=== PATIENT | male | born 1970 | race Caucasian/White ===

== ENCOUNTER 2021-07-18 21:24 | Observation (INO) | payer OTHER, SELFPAY ==
[2021-07-18 21:27] VITALS: BP 113/69; PULSE 73; RESP 15; TEMP 36.3; O2SAT 100; BMI 24.5
--- NOTE | 2021-07-18 21:39 | EKG12_ITS ---
Test Reason : SYNCOPY Blood Pressure : / mmHG Vent. Rate : 065 BPM Atrial Rate : 065 BPM P-R Int : 168 ms QRS Dur : 100 ms QT Int : 400 ms P-R-T Axes : 073 072 047 degrees QTc Int : 416 ms Normal sinus rhythm Normal ECG Confirmed by NATHANIEL DUNHAM, DAVON ([id number]), editor managing director LENNY ALVAREZ ([id number]) on 07/21/2021 11:29:04 AM Referred By: Confirmed By:DAVON ARMSTRONG MD
--- NOTE | 2021-07-18 21:39 | EX.ED.DYSGE1 ---
HPI <Dr. Lonny Strickland DO - Last Filed: 07/19/21 00:13> History of Present Illness Chief Complaint: Syncope Informant: patient Narrative Narrative: 50-year-old male presenting Emergency department chief complaint of syncope. Patient is in [place] and comes to visit on the weekends. He states that on Wednesday of this week he had an episode of dizziness which was character for him. On Wednesday he developed a rash body he saw Dr. Today was a prescription for prednisone which he has not started. Tonight he was at a concert at the [employer]. He stood up for about 4 to 5 minutes and began to get lightheaded so he sat back down for couple minutes. He thought that he could make it outside and had a syncopal episode. Bystanders describe it was. Pale. He denies any chest pain palpitations shortness of breath or sweating. He has no prior history of syncope. [facility] <Dr. Lonny Strickland DO - Last Filed: 07/19/21 00:13> [facility] Medical History Adult acne Home Medications doxycycline hyclate 100 mg PO BID 07/18/21 [History Last Taken Unknown] Allergy/AdvReac Type Severity Reaction Status Date / Time No Known Allergies Allergy Verified 07/18/21 21:29 Social History (Updated 07/18/21 @ 21:[address] Lonny Strickland DO) Smoking Status: Never smoker substance use type: does not use ROS <Dr. Lonny Strickland DO - Last Filed: 07/19/21 00:13> ROS ED Constitutional Constitutional ED: Denies chills, fever(s) or weight loss Eyes Eyes: Denies change in vision or diplopia ENT ENT ED: Denies ear pain, rhinorrhea or sore throat Cardiovascular Cardiovascular: Reports other Details: Syncope ; Denies chest pain, orthopnea, palpitations or racing heartbeat Respiratory/Chest Respiratory/Chest: Denies cough, dyspnea or orthopnea Gastrointestinal Gastrointestinal: Denies abdominal pain, diarrhea, nausea or vomiting Genitourinary Genitourinary ED: Denies dysuria, hematuria or urinary frequency Musculoskeletal Musculoskeletal: Denies arthralgias or myalgias Integumentary Denies abscess or rash Neurologic Neurologic: Denies headache(s) or weakness Psychiatric Psychiatric: Denies anxiety, depression, suicidal ideation or suicidal thoughts Endocrine Endocrinology: Denies polydipsia, polyphagia or polyuria Allergic/Immunologic Allergic/Immunologic ED: Denies mouth swelling, tongue swelling or urticaria EXAM <Dr. Lonny Strickland, DO - Last Filed: 07/19/21 00:13> Physical Exam Const Vital Signs: 07/18/21 21:27 07/18/21 21:31 07/19/21 00:52 Temperature 97.4 F L Temperature Source Temporal Pulse Rate 73 71 Respiratory Rate 15 Respiratory Effort Normal Non-Labored Respiratory Pattern Normal Blood Pressure 113/69 140/72 H Blood Pressure Mean 83 Pulse Ox 100 Oxygen Delivery Method Room Air 07/19/21 00:58 07/19/21 01:38 Temperature 97.9 F Temperature Source Oral Pulse Rate 53 L 69 Respiratory Rate 14 Respiratory Effort Respiratory Pattern Blood Pressure 81/53 L 110/63 Blood Pressure Mean 62 78 Pulse Ox 100 Oxygen Delivery Method Room Air Positive well nourished and well developed General Appearance ED: well developed HEENT Reports normocephalic, head/scalp atraumatic, TM's clear and moist mucous membranes Negative for trauma Tympanic Membrane ED: Yes TM's clear Eyes PERRL and EOMs intact bilaterally Neck no lymphadenopathy, supple and no JVD Resp normal respiratory effort and clear to auscultation bilaterally Cardio regular rate, regular rhythm and no murmurs GI normal to inspection, nondistended, normoactive bowel sounds and non-tender Palpation: soft Back/Spine no CVA tenderness and normal ROM Extremity normal to inspection General Extremety ED: Negative for edema General Extremity: Negative for edema Neuro oriented x3 and CN's II-XII intact bilaterally Sensorium / Orientation: alert Motor Exam: strength 5/5 throughout Psych mental status grossly normal Mood & Affect: Negative for depressed or tearful Skin no wounds Skin Narrative: hives noted on arms chest <Dr. Ronnie Dean, DO - Last Filed: 07/19/21 01:42> Physical Exam Const Vital Signs: 07/18/21 21:27 07/18/21 21:31 07/19/21 00:52 Temperature 97.4 F L Temperature Source Temporal Pulse Rate 73 71 Respiratory Rate 15 Respiratory Effort Normal Non-Labored Respiratory Pattern Normal Blood Pressure 113/69 140/72 H Blood Pressure Mean 83 Pulse Ox 100 Oxygen Delivery Method Room Air 07/19/21 00:58 07/19/21 01:38 Temperature 97.9 F Temperature Source Oral Pulse Rate 53 L 69 Respiratory Rate 14 Respiratory Effort Respiratory Pattern Blood Pressure 81/53 L 110/63 Blood Pressure Mean 62 78 Pulse Ox 100 Oxygen Delivery Method Room Air [facility] <Dr. Lonny Strickland, DO - Last Filed: 07/19/21 00:13> [facility] Narrative Medical decision making narrative: Patient's EKG is a normal sinus rhythm. Hemoglobin 15.1. BMP with potassium 3.4. Troponin high-sensitivity is less than 3. My interpretation of the chest x-ray is no acute process. D-dimer was obtained and is 2.33. Therefore a CTA of the chest was obtained. This was negative for pulmonary embolism. Delta troponin obtained and if negative the patient will be discharged home to arrange outpatient follow-up unless symptoms return in which case he should seek emergency care Lab Data Attestation: I reviewed the patient's lab results. Labs: Laboratory Results - last 24 hr 07/18/21 07/18/21 07/18/21 21:18 21:18 21:18 WBC 8.6 RBC 4.90 Hgb 15.1 Hct 44.8 MCV 91.4 MCH 30.8 MCHC 33.7 RDW Std Deviation 44.9 H RDW Coeff of Shanda 13.4 Plt Count 327 MPV 9.3 Immature Gran % (Auto) 0.200 Neut % (Auto) 60.1 Lymph % (Auto) 29.1 [place] % (Auto) 9.1 Eos % (Auto) 1.4 Baso % (Auto) 0.1 Absolute Neuts (auto) 5.2 Absolute Lymphs (auto) 2.49 Nucleated RBC % 0 D-Dimer Quant (PE/DVT) 2.33 H* Sodium 138 Potassium 3.4 L Chloride 104 Carbon Dioxide 31.0 Anion Gap 3 L BUN 14 Creatinine 0.88 Estim Creat Clear Calc 95.00 Est GFR (MDRD) Af Amer 117 Est GFR (MDRD) Non-Af 97 BUN/Creatinine Ratio 15.9 Glucose 124 H Calcium 8.8 Troponin I High Sens < 3 L 07/18/21 23:54 WBC RBC Hgb Hct MCV MCH MCHC RDW Std Deviation RDW Coeff of Shanda Plt Count MPV Immature Gran % (Auto) Neut % (Auto) Lymph % (Auto) [place] % (Auto) Eos % (Auto) Baso % (Auto) Absolute Neuts (auto) Absolute Lymphs (auto) Nucleated RBC % D-Dimer Quant (PE/DVT) Sodium Potassium Chloride Carbon Dioxide Anion Gap BUN Creatinine Estim Creat Clear Calc Est GFR (MDRD) Af Amer Est GFR (MDRD) Non-Af BUN/Creatinine Ratio Glucose Calcium Troponin I High Sens < 3 L Radiography Diagnostic Testing: Clinical Impression(s) from Imaging Studies Chest X-Ray 07/18/21 21:43 IMPRESSION: 1. No radiographic evidence of acute cardiopulmonary disease. Electronically Signed: Teddy Valdes DO at 22:33 EDT , Chest CTA 07/18/21 22:43 IMPRESSION: Normal CTA chest examination, without a demonstrated pulmonary embolism or arterial dissection. No evidence of acute cardiopulmonary disease. 2.1 cm, homogenous, fluid density segment 8 of the liver likely representing cyst. Electronically Signed: Teddy Valdes DO at 0:12 EDT , EKG Initial EKG: Attestation: I personally reviewed and interpreted this EKG as follows: Comments: Normal sinus rhythm ventricular rate of 65 bpm <Dr. Ronnie Dean, DO - Last Filed: 07/19/21 01:42> MDM MDM Narrative Medical decision making narrative: Patient signed out to me at midnight for follow up on delta troponin. Patient was individually examined and I took an individual history. His blood work is noted to be normal with exception of a D-dimer elevated at 2.33. His CTA of the chest was negative for PE or dissection. Ultimately his delta troponin was less than 3 as well. When the patient stood up to put on his shirt he became very lightheaded. His blood pressure dropped to 81/53 and the patient had another syncopal episode which would be 3 in the last several hours. I do not have a source for this but given his continued couple episodes I spoke to the hospitalist for admission. Patient was amenable to admission. Lab Data Attestation: I reviewed the patient's lab results. Labs: Laboratory Results - last 24 hr 07/18/21 07/18/21 07/18/21 21:18 21:18 21:18 WBC 8.6 RBC 4.90 Hgb 15.1 Hct 44.8 MCV 91.4 MCH 30.8 MCHC 33.7 RDW Std Deviation 44.9 H RDW Coeff of Shanda 13.4 Plt Count 327 MPV 9.3 Immature Gran % (Auto) 0.200 Neut % (Auto) 60.1 Lymph % (Auto) 29.1 [place] % (Auto) 9.1 Eos % (Auto) 1.4 Baso % (Auto) 0.1 Absolute Neuts (auto) 5.2 Absolute Lymphs (auto) 2.49 Nucleated RBC % 0 D-Dimer Quant (PE/DVT) 2.33 H* Sodium 138 Potassium 3.4 L Chloride 104 Carbon Dioxide 31.0 Anion Gap 3 L BUN 14 Creatinine 0.88 Estim Creat Clear Calc 95.00 Est GFR (MDRD) Af Amer 117 Est GFR (MDRD) Non-Af 97 BUN/Creatinine Ratio 15.9 Glucose 124 H Calcium 8.8 Troponin I High Sens < 3 L 07/18/21 23:54 WBC RBC Hgb Hct MCV MCH MCHC RDW Std Deviation RDW Coeff of Shanda Plt Count MPV Immature Gran % (Auto) Neut % (Auto) Lymph % (Auto) [place] % (Auto) Eos % (Auto) Baso % (Auto) Absolute Neuts (auto) Absolute Lymphs (auto) Nucleated RBC % D-Dimer Quant (PE/DVT) Sodium Potassium Chloride Carbon Dioxide Anion Gap BUN Creatinine Estim Creat Clear Calc Est GFR (MDRD) Af Amer Est GFR (MDRD) Non-Af BUN/Creatinine Ratio Glucose Calcium Troponin I High Sens < 3 L Radiography Diagnostic Testing: Clinical Impression(s) from Imaging Studies Chest X-Ray 07/18/21 21:43 IMPRESSION: 1. No radiographic evidence of acute cardiopulmonary disease. Electronically Signed: Teddy Valdes DO at 22:33 EDT , Chest CTA 07/18/21 22:43 IMPRESSION: Normal CTA chest examination, without a demonstrated pulmonary embolism or arterial dissection. No evidence of acute cardiopulmonary disease. 2.1 cm, homogenous, fluid density segment 8 of the liver likely representing cyst. Electronically Signed: Teddy Valdes DO at 0:12 EDT , Discharge Plan Triage Chief Complaint: Syncope ED Provider: Lonny Strickland Dx/Rx/DC Orders Clinical Impression: Syncope Instructions: ED Fainting, Uncertain Cause Prescriptions: No Action doxycycline hyclate 100 mg Capsule 100 mg PO BID RF: 0 Activity Restrictions/Additional Instructions: Please follow-up with your primary care provider when you return home next week
--- NOTE | 2021-07-18 21:43 | RAD_ITS ---
INDICATION: syncope EXAMINATION/TECHNIQUE: X-RAY - XR Chest 1 View COMPARISON: None. FINDINGS: LINES/DEVICES: None. LUNGS: Symmetric normal lung volumes. No airspace opacity or abnormal interstitial pattern. No nodule or mass. No pleural effusion or pneumothorax. MEDIASTINUM AND CARDIOVASCULAR STRUCTURES: Normal size and contour of the cardiomediastinal silhouette. No evidence of pulmonary vascular congestion. BONES AND SOFT TISSUES: No abnormality within limits of the exam. RAD/Chest 1 View (Portable) IMPRESSION: 1. No radiographic evidence of acute cardiopulmonary disease. Electronically Signed: Teddy Valdes DO at 22:33 EDT ,
[2021-07-18 21:53] LABS: Absolute Lymphocyte Count 2.49 X10^3/uL (0.83-4.51); Absolute Neutrophil Count 5.2 X10^3/uL (2.0-7.7); Basophil# 0.01 X10^3/uL; Basophil% 0.1 % (0-1); Eosinophil# 0.12 X10^3/uL; Eosinophils% 1.4 % (0-5); Hematocrit 44.8 % (40-54); Hemoglobin 15.1 g/dL (13.0-16.5); Lymphocyte # 2.49 X10^3/ul (0.83-4.51); Lymphocyte % 29.1 % (19-41); Mean Corp Hgb Conc 33.7 g/dL (32-36); Mean Corpuscular Hgb 30.8 pg (27.0-32.0); Mean Corpuscular Volume 91.4 fL (80-94); Mean Platelet Vol. 9.3 fl (6.2-12.0); Monocyte# 0.78 X10^3/uL; Monocyte% 9.1 % (0-10); NRBC Flagged by Analyzer 0 % (0-5); Neutrophil # 5.15 X10^3/uL (2.7-7.7); Neutrophil % 60.1 % (47-70); Platelet Count 327 K/mm3 (150-450); RBC Distribution Width CV 13.4 % (11.6-14.6); RBC Distribution Width SD 44.9 fl (35.1-43.9); White Blood Count 8.6 K/mm3 (4.4-11.0)
[2021-07-18 22:15] LABS: Anion Gap 3 (5-15); BUN 14 mg/dL (7-18); BUN/Creat Ratio 15.9 RATIO (10-20); Calcium,Total 8.8 mg/dL (8.5-10.1); Chloride 104 mmol/L (98-107); Creatinine, Serum 0.88 mg/dL (0.70-1.30); EST Glomerular Filtration Rate 97 mL/min (>60); Est Glom Filt Rate - Afr Amer 117 mL/min (>60); Glucose 124 mg/dL (74-106); Potassium 3.4 mmol/L (3.5-5.1); Sodium Level 138 mmol/L (136-145); Troponin-I HS < 3 pg/mL (3.0-78.0)
[2021-07-18 22:43] LABS: D-Dimer Quantitative (DVT/PE) 2.33 FEU/ug/m (0.27-0.49)
--- NOTE | 2021-07-18 22:43 | CT_ITS ---
STUDY: CTA CHEST REASON FOR EXAM: Male, 50 years old. pulmonary embolism, elevated d dimer RADIATION DOSAGE (If Supplied By Facility): CTDIvol = ( 9.87 ) mGy, DLP = ( 351.99 ) mGycm TECHNIQUE: The examination was performed with the intravenous administration of IV 100mL Isovue-370. Post-processing of the angiographic images was performed, with multiplanar reformation and 3D reconstruction. Individualized dose optimization techniques were used for this CT. COMPARISON: Chest x-ray from the same evening. FINDINGS: Adequate density of contrast in the pulmonary arteries and no significant motion; diagnostic exam. No pulmonary artery filling defect to suggest pulmonary embolism. There is no evidence of right heart strain. Normal size heart. No pericardial fluid. No mediastinal or hilar lymphadenopathy. No mass or filling defect. No bronchiectasis. No peribronchial thickening. Normal lung volumes without airtrapping. No airspace opacity or abnormal interstitial pattern. No nodule or mass. No pleural effusion or pneumothorax. Thyroid gland and base of the neck are within normal limits. No axillary lymphadenopathy. No fracture or suspicious osseous lesion. 5 mm sclerotic focus T7 vertebral body noted. 2.1 cm fluid density segment 8 of the liver likely representing cyst. Small organs upper abdomen, included in [id number], are otherwise within normal limits. Visualized vascular structures are within normal limits. CT/CTA Chest W/WO Contrast IMPRESSION: Normal CTA chest examination, without a demonstrated pulmonary embolism or arterial dissection. No evidence of acute cardiopulmonary disease. 2.1 cm, homogenous, fluid density segment 8 of the liver likely representing cyst. Electronically Signed: Teddy Valdes DO at 0:12 EDT ,
[2021-07-18] MEDS: DiphenhydrAMINE 25 MG Capsule 50 MG PO (23:59)
[2021-07-19] VITALS (12 sets, daily range): BP systolic 81–140; BP diastolic 52–72; PULSE 53–83; RESP 14–18; TEMP 36.4–37.1; O2SAT 98–100; BMI 23.4
[2021-07-19 00:37] LABS: Troponin-I HS < 3 pg/mL (3.0-78.0)
--- NOTE | 2021-07-19 01:02 | ED.RN ---
PT D/C'D. PER PT FRIEND PT STATED HE WENT TO STAND UP AND STATED HE FELT FUNNY. PER FRIEND SHE SAT HIM DOWN AND CALLED FOR HELP. ASPHALT TAMPER INTO ROOM AND NOTED EYES ROLLED BACK INTO HEAD AND UNRESPONSIVE FOR A COUPLE OF SECONDS. THIS NURSE INTO ROOM PROMPTLY AND PT AWAKE BUT SLOW TO RESPOND. ASSISTED BACK INTO BED. HR 50 BP 81/53. PT A&OX4. STAT EKG CALLED AND DR. DOSHI NOTIFIED.
--- NOTE | 2021-07-19 01:10 | NURSING ---
ALERTED BY FRIEND PT FELT DIZZY AGAIN. WALKED INTO ROOM AND SAW PT PALE, WITH EYES ROLLED BACK INTO HEAD. ALERTED RIZWAN PENDLETON FOR HELP. PT PUT BACK INTO BED, VITALS TAKEN AND NOTED BY RIZWAN PENDLETON.
[2021-07-19] MEDS: 0.9% Normal Saline 1,000 ML 999 ML IV (01:14)
--- NOTE | 2021-07-19 01:23 | EKG12_ITS ---
Test Reason : SYNCOPY Blood Pressure : / mmHG Vent. Rate : 060 BPM Atrial Rate : 060 BPM P-R Int : 170 ms QRS Dur : 094 ms QT Int : 398 ms P-R-T Axes : 076 077 057 degrees QTc Int : 398 ms Normal sinus rhythm Normal ECG Confirmed by NATHANIEL DUNHAM, DAVON ([id number]), graphic editor LENNY ALVAREZ ([id number]) on 07/21/2021 11:30:29 AM Referred By: EDUAR Confirmed By:DAVON ARMSTRONG MD
--- NOTE | 2021-07-19 01:42 | PCM.HP.STD ---
[facility] - General General Date of Admission: 07/19/21 HPI Narrative WILMER ROBLES, is a 50 M with a significant history of adult acne on doxycycline who presents to the emergency department with 2 episodes of syncope. Three days before presentation patient felt lightheadedness while sitting. Two days before presentation patient developed a diffuse rash on his body. Of note patient was prescribed steroid but he has not started taking the steroids. Reportedly he used a new detergents which is however in the same class of previous detergents that he had to use. Patient traveled from [place] to watch his consents and toward the end of the consent patient felt lightheaded and had a syncopal episode. Reportedly he hit his head. He reports a headache. He report that with his syncopal episodes he always felt warm and mildly nauseous. At the emergency department D-dimer was elevated. Follow-up CTA did not show any clots. Troponin x2 was unremarkable. Patient's was about to be discharged. He stood up got lightheaded and had another syncopal episode. His blood pressure after syncopal episode was 81/53. He received IV bolus there after and repeat blood pressure was normal. Before this episode of syncope last time he had syncope was about 20 years ago. [facility] Medical History Adult acne Home Medications doxycycline hyclate 100 mg PO BID 07/18/21 [History Last Taken Unknown] Allergy/AdvReac Type Severity Reaction Status Date / Time No Known Allergies Allergy Verified 07/18/21 21:29 Family History (Updated 07/19/21 @ 02:[address] Tae Carroll MD) Other Cancer Heart disease Surgical History no surgical history no surgical history Social History Smoking Status: Never smoker substance use type: does not use Vital Signs Vital Signs Vital Signs: 07/18/21 21:27 07/18/21 21:31 07/19/21 00:52 Temperature 97.4 F L Temperature Source Temporal Pulse Rate 73 71 Respiratory Rate 15 Respiratory Effort Normal Non-Labored Respiratory Pattern Normal Blood Pressure 113/69 140/72 H Blood Pressure Mean 83 Pulse Ox 100 Oxygen Delivery Method Room Air 07/19/21 00:58 07/19/21 01:38 Temperature 97.9 F Temperature Source Oral Pulse Rate 53 L 69 Respiratory Rate 14 Respiratory Effort Respiratory Pattern Blood Pressure 81/53 L 110/63 Blood Pressure Mean 62 78 Pulse Ox 100 Oxygen Delivery Method Room Air Weight Weight: 73 kg Body Mass Index (BMI) 24.5 Physical Exam Narrative Physical exam: General: Well-nourished, well-developed. Head: Normocephalic, atraumatic, no tenderness Eyes: Vision is grossly intact. EOMI ENT, no trauma, moist mucous membranes, no rhinorrhea Neck: Nontender, full range of motion, no spinal tenderness, deformities, step-off CVS: Regular rate and rhythm. S1-S2 present. No murmur, gallop or rub. Respiratory : clear to auscultation bilaterally, chest wall nontender, no wheezing Abdomen: Soft, nontender, nondistended, normal bowel sounds, no masses : Deferred Back: Nontender, no CVA tenderness, no midline spinal tenderness, deformities, step-offs Extremities: Nontender full range of motion, no trauma Skin: Scattered hives. Neuro: Alert, oriented, cranial nerves II through XII grossly intact. Psychiatry: Normal mood. Normal affect. Not depressed. Not anxious. Results Lab / Micro Data Result Diagrams: 07/18/21 21:18 07/18/21 21:18 Labs: Laboratory Results - last 24 hr 07/18/21 21:18: WBC 8.6, RBC 4.90, Hgb 15.1, Hct 44.8, MCV 91.4, MCH 30.8, MCHC 33.7, RDW Std Deviation 44.9 H, RDW Coeff of Shanda 13.4, Plt Count 327, MPV 9.3, Immature Gran % (Auto) 0.200, Neut % (Auto) 60.1, Lymph % (Auto) 29.1, [place] % (Auto) 9.1, Eos % (Auto) 1.4, Baso % (Auto) 0.1, Absolute Neuts (auto) 5.2, Absolute Lymphs (auto) 2.49, Nucleated RBC % 0 07/18/21 21:18: D-Dimer Quant (PE/DVT) 2.33 H* 07/18/21 21:18: Sodium 138, Potassium 3.4 L, Chloride 104, Carbon Dioxide 31.0, Anion Gap 3 L, BUN 14, Creatinine 0.88, Estim Creat Clear Calc 95.00, Est GFR (MDRD) Af Amer 117, Est GFR (MDRD) Non-Af 97, BUN/Creatinine Ratio 15.9, Glucose 124 H, Calcium 8.8, Troponin I High Sens < 3 L 07/18/21 23:54: Troponin I High Sens < 3 L Radiology Impression Chest X-Ray 07/18/21 21:43 IMPRESSION: 1. No radiographic evidence of acute cardiopulmonary disease. Electronically Signed: Teddy Valdes DO at 22:33 EDT , Chest CTA 07/18/21 22:43 IMPRESSION: Normal CTA chest examination, without a demonstrated pulmonary embolism or arterial dissection. No evidence of acute cardiopulmonary disease. 2.1 cm, homogenous, fluid density segment 8 of the liver likely representing cyst. Electronically Signed: Teddy Valdes DO at 0:12 EDT , Assessment & Plan Assessment/Plan (1) Syncope and collapse: (2) Contact dermatitis: QUALIFIERS: Contact dermatitis type: allergic Contact dermatitis trigger: other chemical product Qualified Code(s): L23.5 - Allergic contact dermatitis due to other chemical products PLAN: Syncope and collapse Vasovagal versus orthostatic. EKG independently reviewed showed sinus rhythm with no ST or T abnormalities. Impression of chest x-ray by radiologist: No radiographic evidence of acute cardiopulmonary disease. Actual chest x-ray image was independently reviewed. I agree with radiologist interpretation. Review of labs showed elevated D-dimer. Chest CTA was visualized and independently interpreted. At radiologist interpretation of no active evidence of acute cardiopulmonary process but with 2.1 cm homogeneous fluid density segment likely representing a cyst that patient can follow-up longitudinally. Echocardiogram ordered. High sensitivity troponin x2 was negative. Trend troponin. Orthostatic vitals per protocol Received normal saline bolus at emergency department. Gentle IV hydration ordered. Tylenol as needed for headache. If headache worsens or patient develops focal neurological symptoms will consider CT head. Hypokalemia Potassium 3.4. Replacement ordered. Magnesium level ordered return as 1.9. 2 g of magnesium IV ordered. Trend BMP. DVT prophylaxis Subcutaneous Lovenox ordered. Charges/Coding Visit Charges Inpatient E&M: 83184 Init Hosp L3 OBSV E&M: 00099 Initial observation care L3
[2021-07-19 01:54] LABS: Magnesium 1.9 mg/dL (1.6-2.6)
--- NOTE | 2021-07-19 02:19 | ECHOD_ITS ---
Reason For Study: Syncope, Near Syncope Procedure This was a 2D Doppler, Color Flow transthoracic echocardiogram. The exam was of adequate technical quality. Exam performed portable in patient room. Left Ventricle Normal LV size. Left ventricular systolic function is normal. The estimated ejection fraction is 65 %. No evidence for diastolic dysfunction. No regional wall motion abnormalities noted. Right Ventricle Normal RV size. Normal systolic function. Atria Normal left atrium. Normal right atrium. Late and faintly positive agitated saline contrast study for right to left interatrial shunt compatible with a small PFO versus ASD. Mitral Valve There is no mitral annular calcification. Mild focal mitral valve calcification of the anterior leaflet. Trivial mitral valve insufficiency. Tricuspid Valve Normal tricuspid valve. Trivial tricuspid valve insufficiency. Unable to estimate RV systolic pressure due to insufficient tricuspid regurgitant envelope. Aortic Valve Trisinus/trileaflet aortic valve. Mild diffuse aortic valve thickening. Trivial aortic valve insufficiency. Pulmonic Valve The pulmonic valve is not well visualized. Great Vessels Normal sized aortic root. Pericardium/Pleural No pericardial effusion. Medication Performed a rapid injection of agitated mix of 9 cc saline and 1cc air to assess for atrial septal defect. MMode/2D Measurements & Calculations LVIDd: 4.4 cm IVSd: 0.92 cm Ao root diam: 2.9 cm LVIDs: 2.9 cm LVPWd: 1.00 cm RVDd: 3.3 cm FS: 33.5 % LAV(MOD-bp): 32.5 ml LVAd ap4: 26.6 cm2 SV(MOD-sp4): 41.3 ml LAV(MOD-bp) Indexed: 17.5 ml/m2 LVLd ap4: 8.3 cm LAV(MOD-sp2): 28.7 ml EDV(MOD-sp4): 70.8 ml LAV(MOD-sp4): 30.5 ml EDV(sp4-el): 72.8 ml LVAs ap4: 15.4 cm2 LVLs ap4: 7.0 cm ESV(MOD-sp4): 29.5 ml ESV(sp4-el): 28.7 ml EF(MOD-sp4): 58.4 % EF(sp4-el): 60.6 % SV(sp4-el): 44.1 ml LA A4 area: 13.9 cm2 LA dimension(2D): 3.0 cm RA A4 area: 14.1 cm2 Doppler Measurements & Calculations MV E max robbie: 77.8 cm/sec Lat Peak E' Robbie: 12.8 cm/sec Med Peak E' Robbie: 7.7 cm/sec MV A max robbie: 60.4 cm/sec E/E' lat: 6.1 E/E' med: 10.1 MV E/A: 1.3 Ao V2 max: 114.3 cm/sec LV V1 max: 86.8 cm/sec PA V2 max: 87.6 cm/sec Ao max P.2 mmHg LV V1 max P.0 mmHg Ao V2 mean: 85.0 cm/sec Ao mean P.1 mmHg Ao V2 VTI: 24.8 cm ECHO/Echo Complete Interpretation Summary Left ventricular systolic function is normal. The estimated ejection fraction is 65 %. Mild focal mitral valve calcification of the anterior leaflet. Trivial mitral valve insufficiency. Trivial tricuspid valve insufficiency. Mild diffuse aortic valve thickening. Trivial aortic valve insufficiency. Unable to estimate RV systolic pressure due to insufficient tricuspid regurgita nt envelope. No evidence for diastolic dysfunction. Late and faintly positive agitated saline contrast study for right to left inte ratrial shunt compatible with a small PFO versus ASD. Ordering Physician: Tae Carroll Performed By: Sigrid Packer, KRISHAN, RVT
[2021-07-19] MEDS: 0.9% Normal Saline 1,000 ML 100 ML IV ×2 (03:15→13:40)
[2021-07-19] MEDS: Potassium Chloride Oral Tablet 20 MEQ 60 MEQ PO (03:30)
[2021-07-19 03:51] LABS: Absolute Lymphocyte Count 0.91 X10^3/uL (0.83-4.51); Absolute Neutrophil Count 10.6 X10^3/uL (2.0-7.7); Basophil# 0.01 X10^3/uL; Basophil% 0.1 % (0-1); Eosinophil# 0.04 X10^3/uL; Eosinophils% 0.3 % (0-5); Hematocrit 45.4 % (40-54); Hemoglobin 15.2 g/dL (13.0-16.5); Lymphocyte # 0.91 X10^3/ul (0.83-4.51); Lymphocyte % 7.3 % (19-41); Mean Corp Hgb Conc 33.5 g/dL (32-36); Mean Corpuscular Hgb 30.8 pg (27.0-32.0); Mean Corpuscular Volume 91.9 fL (80-94); Mean Platelet Vol. 9.2 fl (6.2-12.0); Monocyte# 0.83 X10^3/uL; Monocyte% 6.7 % (0-10); NRBC Flagged by Analyzer 0 % (0-5); Neutrophil # 10.63 X10^3/uL (2.7-7.7); Neutrophil % 85.3 % (47-70); Platelet Count 324 K/mm3 (150-450); RBC Distribution Width CV 13.5 % (11.6-14.6); Red Blood Count 4.94 M/mm3 (4.6-6.2); White Blood Count 12.5 K/mm3 (4.4-11.0)
[2021-07-19 04:29] LABS: Anion Gap 4 (5-15); BUN 11 mg/dL (7-18); BUN/Creat Ratio 12.6 RATIO (10-20); Calcium,Total 8.2 mg/dL (8.5-10.1); Chloride 105 mmol/L (98-107); Creatinine, Serum 0.87 mg/dL (0.70-1.30); EST Glomerular Filtration Rate 97 mL/min (>60); Est Glom Filt Rate - Afr Amer 118 mL/min (>60); Estimated Creatinine Clearance 96.09 ml/min; Glucose 136 mg/dL (74-106); Potassium 4.1 mmol/L (3.5-5.1); Sodium Level 137 mmol/L (136-145)
[2021-07-19 04:31] LABS: Troponin-I HS < 3 pg/mL (3.0-78.0)
--- NOTE | 2021-07-19 09:25 | PN.HOSP_ITS ---
Subjective Subjective Rash recurring this AM. Progresses from his hands, legs to neck and head. Denies any new medications. Has been on doxycycline for months and psuedophed for longer. No recent travel beyond between [place] and [place]. Denies illicit drug use. No known food allergies. Did have shellfish earlier this week, but not since. Objective Data Objective Data Vital Signs: Vital Signs Temp Pulse Resp BP Pulse Ox 36.5 C L 70 16 98/58 L 99 07/19/21 08:40 07/19/21 08:40 07/19/21 08:40 07/19/21 08:40 07/19/21 08:40 Oxygen Delivery Method Room Air Weight: 70 kg Body Mass Index (BMI) 23.4 Intake & Output: Intake and Output for Last 24 Hours 07/17/21 07/18/21 07/19/21 23:59 23:59 23:59 Intake Total 1204 / 1204 Balance 1204 / 1204 Lab / Micro Data Result Diagrams: 07/19/21 03:45 07/19/21 03:45 Labs: Laboratory Results - last 24 hr 07/18/21 21:18: WBC 8.6, RBC 4.90, Hgb 15.1, Hct 44.8, MCV 91.4, MCH 30.8, MCHC 33.7, RDW Std Deviation 44.9 H, RDW Coeff of Shanda 13.4, Plt Count 327, MPV 9.3, Immature Gran % (Auto) 0.200, Neut % (Auto) 60.1, Lymph % (Auto) 29.1, Harnett % (Auto) 9.1, Eos % (Auto) 1.4, Baso % (Auto) 0.1, Absolute Neuts (auto) 5.2, Absolute Lymphs (auto) 2.49, Nucleated RBC % 0 07/18/21 21:18: D-Dimer Quant (PE/DVT) 2.33 H* 07/18/21 21:18: Sodium 138, Potassium 3.4 L, Chloride 104, Carbon Dioxide 31.0, Anion Gap 3 L, BUN 14, Creatinine 0.88, Estim Creat Clear Calc 95.00, Est GFR (MDRD) Af Amer 117, Est GFR (MDRD) Non-Af 97, BUN/Creatinine Ratio 15.9, Glucose 124 H, Calcium 8.8, Troponin I High Sens < 3 L 07/18/21 23:54: Troponin I High Sens < 3 L 07/19/21 01:45: Magnesium 1.9 07/19/21 03:45: WBC 12.5 H, RBC 4.94, Hgb 15.2, Hct 45.4, MCV 91.9, MCH 30.8, MCHC 33.5, RDW Std Deviation 46.0 H, RDW Coeff of Shanda 13.5, Plt Count 324, MPV 9.2, Immature Gran % (Auto) 0.300, Neut % (Auto) 85.3 H, Lymph % (Auto) 7.3 L, Harnett % (Auto) 6.7, Eos % (Auto) 0.3, Baso % (Auto) 0.1, Absolute Neuts (auto) 10.6 H, Absolute Lymphs (auto) 0.91, Nucleated RBC % 0 07/19/21 03:45: Sodium 137, Potassium 4.1, Chloride 105, Carbon Dioxide 28.0, Anion Gap 4 L, BUN 11, Creatinine 0.87, Estim Creat Clear Calc 96.09, Est GFR (MDRD) Af Amer 118, Est GFR (MDRD) Non-Af 97, BUN/Creatinine Ratio 12.6, Glucose 136 H, Calcium 8.2 L 07/19/21 03:45: Troponin I High Sens < 3 L Radiography Diagnostic Testing: Radiology Impression Chest X-Ray 07/18/21 21:43 IMPRESSION: 1. No radiographic evidence of acute cardiopulmonary disease. Electronically Signed: Teddy Valdes DO at 22:33 EDT , Chest CTA 07/18/21 22:43 IMPRESSION: Normal CTA chest examination, without a demonstrated pulmonary embolism or arterial dissection. No evidence of acute cardiopulmonary disease. 2.1 cm, homogenous, fluid density segment 8 of the liver likely representing cyst. Electronically Signed: Teddy Valdes DO at 0:12 EDT , Physical Exam Const alert and no apparent distress HEENT HEENT Narrative: no oral lesions. Cardio regular rate, regular rhythm, S1 normal heart sound and S2 normal heart sound GI normal to inspection, nondistended, normoactive bowel sounds, soft to palpation, non-tender and non-distended Extremity normal to inspection Skin Skin Narrative: macular palpular rash involving hands, legs, chest, abdomen, scalp. Neuro oriented x3 Sensorium / Orientation: awake and alert Assessment & Plan Assessment/Plan (1) Syncope and collapse: (2) Drug rash: PLAN: 1. Suspected drug rash * more likely due to doxycycline, which he has been taking for months (previously on minocycline), less likely pseudophed, but will hold both * other possibilities could be viral exanthem or food allergy * No clinical evidence of SJS, TEN * Given extent, less likely contact dermatitis * plan * hold doxy and pseudophed * check viral resp panel. Pt had tested himself for COVID this week and were both negative * prednisone 2. Syncope * at baseline, pt would occasionally get dizzy upon standing. this may have been eccentuated by #1 * recheck orthostatic vitals. 3. Adult acne * no doxycycline * follow up with dermatology Will monitor. Anticipate DC when rash and symptoms improve. DW pt's at bedside. Charges/Coding Visit Charges OBSV E&M: 11699 Subsequent observation care L3
[2021-07-19] MEDS: predniSONE 20 MG Tablet 60 MG PO (10:30)
[2021-07-19] MEDS: DiphenhydrAMINE 25 MG Capsule 50 MG PO ×2 (10:31→23:36)
[2021-07-19] MEDS: Famotidine 20 MG Tablet PO ×2 (10:31→22:01)
--- NOTE | 2021-07-19 22:08 | NURSING ---
Patient with hand swelling and cough. NS running at 100ml. Bel notified and fluids held. vitals WNL
[2021-07-20] VITALS (7 sets, daily range): BP systolic 107–124; BP diastolic 61–67; PULSE 82–107; RESP 18; TEMP 36.8–37.1; O2SAT 97–100
[2021-07-20] MEDS: guaiFENesin 10 ML UDC (200MG/10ML) PO (00:33)
[2021-07-20] MEDS: Acetaminophen 325 MG Tablet 650 MG PO (04:45)
[2021-07-20 07:22] LABS: Anion Gap 4 (5-15); BUN 13 mg/dL (7-18); BUN/Creat Ratio 16.5 RATIO (10-20); Chloride 110 mmol/L (98-107); Creatinine, Serum 0.79 mg/dL (0.70-1.30); EST Glomerular Filtration Rate 110 mL/min (>60); Est Glom Filt Rate - Afr Amer 133 mL/min (>60); Estimated Creatinine Clearance 105.82 ml/min; Glucose 117 mg/dL (74-106); Potassium 3.5 mmol/L (3.5-5.1); Sodium Level 139 mmol/L (136-145)
[2021-07-20] MEDS: predniSONE 20 MG Tablet 40 MG PO (09:02)
[2021-07-20] MEDS: DiphenhydrAMINE 25 MG Capsule 50 MG PO (09:03)
[2021-07-20] MEDS: Famotidine 20 MG Tablet PO (09:03)
--- NOTE | 2021-07-20 09:20 | PN.HOSP_ITS ---
Subjective Subjective Rash better. Objective Data Objective Data Vital Signs: Vital Signs Temp Pulse Resp BP Pulse Ox 36.8 C 91 18 107/66 97 07/20/21 08:55 07/20/21 08:55 07/20/21 08:55 07/20/21 08:55 07/20/21 08:55 Oxygen Delivery Method Room Air Weight: 70 kg Body Mass Index (BMI) 23.4 Intake & Output: Intake and Output for Last 24 Hours 07/18/21 07/19/21 07/20/21 23:59 23:59 23:59 Intake Total 4099 / 4099 Balance 4099 / 4099 Lab / Micro Data Result Diagrams: 07/19/21 03:45 07/20/21 05:56 Labs: Laboratory Results - last 24 hr 07/20/21 05:56: Sodium 139, Potassium 3.5, Chloride 110 H, Carbon Dioxide 25.0, Anion Gap 4 L, BUN 13, Creatinine 0.79, Estim Creat Clear Calc 105.82, Est GFR (MDRD) Af Amer 133, Est GFR (MDRD) Non-Af 110, BUN/Creatinine Ratio 16.5, Glucose 117 H, Calcium 8.0 L Micro: Microbiology 07/19/21 11:16 Mucosa - Nasopharyngeal Respiratory Panel (PCR) - Final Radiography Diagnostic Testing: Radiology Impression Echocardiogram 07/19/21 02:19 Interpretation Summary Left ventricular systolic function is normal. The estimated ejection fraction is 65 %. Mild focal mitral valve calcification of the anterior leaflet. Trivial mitral valve insufficiency. Trivial tricuspid valve insufficiency. Mild diffuse aortic valve thickening. Trivial aortic valve insufficiency. Unable to estimate RV systolic pressure due to insufficient tricuspid regurgitant envelope. No evidence for diastolic dysfunction. Late and faintly positive agitated saline contrast study for right to left interatrial shunt compatible with a small PFO versus ASD. Ordering Physician: Tae Carroll Performed By: Sigrid Packer, RDCS, RVT Physical Exam Const alert and no apparent distress Extremity normal to inspection and full ROM Skin Skin Narrative: decreased rash on hands and legs Neuro Sensorium / Orientation: awake and alert Assessment & Plan Assessment/Plan (1) Syncope and collapse: (2) Drug rash: PLAN: 1. Suspected drug rash * more likely due to doxycycline, which he has been taking for months (previously on minocycline), less likely pseudophed, but will hold both * other possibilities could be viral exanthem or food allergy * No clinical evidence of SJS, TEN * Given extent, less likely contact dermatitis * plan * hold doxy and Sudafed * check viral resp panel. Pt had tested himself for COVID this week and were both negative * prednisone 2. Syncope * at baseline, pt would occasionally get dizzy upon standing. this may have been accentuated by #1 * orthostatic vitals negative 3. Adult acne * no doxycycline * follow up with dermatology 4. PFO v ASD * incidental finding * DW Dr. Laws, no need for cardiology follow up unless direct causation. 5. Dizziness * Chronic. Patient has lower blood pressures at baseline and I feel that the single episodes it was was partially attributable to allergic reaction but may have been vasovagal component as well. At baseline patient does feel dizzy upon standing. Patient has been put on Sudafed for this. Explained to the patient that I do not feel that he has an inner ear vertigo but may be more component of orthostasis. Would prescribe the patient some meclizine but also did advise he and his that if he is having positional vertigo to consider doing Luisa maneuvers and to look those up online. But once again I told him I do not necessarily feel that he is having benign paroxysmal positional vertigo. MATT pt's at bedside.
--- NOTE | 2021-07-20 10:15 | PCM.DC ---
Discharge Instructions Diet Discharge Diet: No restrictions Activity Discharge Activity: Return to Normal Activity Dressing / Incision Call your doctor if you observe: Dizziness Follow Up Care Please Follow Up With: Your order manager When: 1-2 months Test Results: Test results from this visit will be discussed in further detail at your follow-up appointment, if applicable. Discharge Plan Admission Admit Date/Time: 07/19/21 01:35 Primary Reason for Your Visit: suspected drug rash Attending Provider: Tirso Gaytan Instructions Patient Instructions: ED Fainting, Uncertain Cause Additional Instructions / Restrictions: Please follow-up with your primary care provider when you return home next week Discharge Orders/Prescriptions Prescriptions: New prednisone 20 mg Tablet 40 mg PO BREAKFAST Qty: 0 RF: 0 famotidine 20 mg Tablet 20 mg PO BID Qty: 0 RF: 0 diphenhydramine HCl [Banophen] 25 mg Capsule 50 mg PO TID PRN PRN (Reason: RASH/TOPICAL IRRITATION) Qty: 0 RF: 0 meclizine 25 mg tablet 25 mg PO TID PRN (Reason: dizziness) Qty: 20 RF: 0 Discontinued doxycycline hyclate 100 mg Capsule 100 mg PO BID RF: 0 Sudafed PE 10 mg RF: 0 Referrals / Follow Up: DIMA RAHMAN [Other] - Within 2 Weeks Disposition Disposition (needs filled in before D/C Order can be placed): Home, Self Care
--- NOTE | 2021-07-20 10:20 | DS.PCM_ITS ---
Providers Date of Admission: 07/19/21 Primary Care Physician: DIMA RAHMAN Reason For Visit: SYNCOPE Diagnosis Discharge Diagnosis (1) Syncope and collapse: Status: Acute Code(s): R55 - Syncope and collapse (2) Drug rash: Status: Acute Code(s): L27.0 - Generalized skin eruption due to drugs and medicaments taken internally Medications at Discharge Home Medications diphenhydramine HCl [Banophen] 50 mg PO TID PRN PRN #0 cap 07/20/21 famotidine 20 mg PO BID #0 tab 07/20/21 meclizine 25 mg PO TID PRN #20 tab 07/20/21 prednisone 40 mg PO BREAKFAST #0 tab 07/20/21 Hospital Course Operations None Procedures 2-D Echocardiogram Summary of Care Provided Minutes Spent on Discharge: 32 Hospital Course: 1. Suspected drug rash * improved more likely due to doxycycline, which he has been taking for months (previously on minocycline), less likely Sudafed, but will hold both * other possibilities could be viral exanthem or food allergy * No clinical evidence of SJS, TEN * Given extent, less likely contact dermatitis * plan * hold doxy and Sudafed * prednisone and famotidine for 4 more days 2. Syncope * at baseline, pt would occasionally get dizzy upon standing. this may have been accentuated by #1 * orthostatic vitals negative 3. Adult acne * no doxycycline * follow up with dermatology about other options other than doxycycline/tetracycline 4. PFO v ASD * incidental finding * DW Dr. Laws, no need for cardiology follow up unless direct causation, which this is not 5. Dizziness * Chronic. Patient has lower blood pressures at baseline and I feel that the single episodes it was was partially attributable to allergic reaction but may have been vasovagal component as well. At baseline patient does feel dizzy upon standing. Patient has been put on Sudafed for this. Explained to the patient that I do not feel that he has an inner ear vertigo but may be more component of orthostasis. Would prescribe the patient some meclizine but also did advise he and his that if he is having positional vertigo to consider doing Luisa maneuvers and to look those up online. But once again I told him I do not necessarily feel that he is having benign paroxysmal positional vertigo. Weight / BMI Weight Weight: 70 kg Body Mass Index (BMI) 23.4 ABG / Lab / Microbiology Data Result Diagrams: 07/19/21 03:45 07/20/21 05:56 Laboratory: Laboratory Results - last 24 hr 07/20/21 05:56: Sodium 139, Potassium 3.5, Chloride 110 H, Carbon Dioxide 25.0, Anion Gap 4 L, BUN 13, Creatinine 0.79, Estim Creat Clear Calc 105.82, Est GFR (MDRD) Af Amer 133, Est GFR (MDRD) Non-Af 110, BUN/Creatinine Ratio 16.5, Glu cose 117 H, Calcium 8.0 L Microbiology: Microbiology 07/19/21 11:16 Mucosa - Nasopharyngeal Respiratory Panel (PCR) - Final Radiography Diagnostic Testing: Radiology Impression Echocardiogram 07/19/21 02:19 Interpretation Summary Left ventricular systolic function is normal. The estimated ejection fraction is 65 %. Mild focal mitral valve calcification of the anterior leaflet. Trivial mitral valve insufficiency. Trivial tricuspid valve insufficiency. Mild diffuse aortic valve thickening. Trivial aortic valve insufficiency. Unable to estimate RV systolic pressure due to insufficient tricuspid regurgitant envelope. No evidence for diastolic dysfunction. Late and faintly positive agitated saline contrast study for right to left interatrial shunt compatible with a small PFO versus ASD. 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 When: 1-2 months Meaningful Use Info Meaningful Use Diagnoses (Choose all that apply): None applicable Discharge Plan Admission Admit Date/Time: 07/19/21 01:35 Primary Reason for Your Visit: suspected drug rash Attending Provider: Tirso Gaytan Instructions Patient Instructions: ED Fainting, Uncertain Cause Additional Instructions / Restrictions: Please follow-up with your primary care provider when you return home next week Discharge Orders/Prescriptions Prescriptions: New prednisone 20 mg Tablet 40 mg PO BREAKFAST Qty: 0 RF: 0 famotidine 20 mg Tablet 20 mg PO BID Qty: 0 RF: 0 diphenhydramine HCl [Banophen] 25 mg Capsule 50 mg PO TID PRN PRN (Reason: RASH/TOPICAL IRRITATION) Qty: 0 RF: 0 meclizine 25 mg tablet 25 mg PO TID PRN (Reason: dizziness) Qty: 20 RF: 0 Discontinued doxycycline hyclate 100 mg Capsule 100 mg PO BID RF: 0 Sudafed PE 10 mg RF: 0 Referrals / Follow Up: DIMA RAHMAN [Other] - Within 2 Weeks Disposition Disposition (needs filled in before D/C Order can be placed): Home, Self Care Charges/Coding Visit Charges OBSV E&M: 33210 Observation care discharge
== END 2021-07-20 10:19 | disposition home or self-care (01) ==
LOC: ED 07-19 01:02 → PCU 07-19 01:46
PROVIDERS: Admitting Provider Hospitalist; Emergency Provider Emergency Medicine
DX: R55 Syncope and collapse (principal); L27.0 Generalized skin eruption due to drugs and medicaments taken internally; L70.9 Acne, unspecified; E87.6 Hypokalemia; Z79.899 Other long term (current) drug therapy
CPT/HCPCS: 36415; 71045; 71275; 80048; 83735; 84484; 85025; 85379; 87633; 93005; 93306; 96360; 96361; 99218; 99285; J7030; Q9967; A4216; G0378

== ENCOUNTER → 2022-10-01 | Outpatient (CLI) | payer BC, SELFPAY ==
--- NOTE | 2022-10-01 07:56 | US_ITS ---
STUDY: ABDOMINAL ULTRASOUND - RIGHT UPPER QUADRANT; ELASTOGRAPHY REASON FOR VISIT: Male, 52 years old. Liver cyst. TECHNIQUE: Ultrasound evaluation of the right upper quadrant was performed with real-time and static franco-scale imaging. Point quantification shear wave elastography was performed (Bracketr). TECHNICAL QUALITY: Adequate. COMPARISON: None. FINDINGS: Liver: The liver measures 14 cm. There is normal echogenicity of the liver. The bile ducts are within normal limits. There is hepatic color flow. The direction of portal flow is hepatopetal. There is a 2.5 cm x 2 cm x 2.3 cm cyst in the right lobe of the liver. Median liver stiffness measured 5 kPa. Gallbladder: Normal distended gallbladder. The gallbladder wall measures 3 mm. There is a negative sonographic Ramirez''s sign. There is no pericholecystic fluid. There are no gallstones. There are 2 small polyps adherent to the gallbladder wall. The larger palpable measures 6 mm x 7 mm x 9 mm. Common Bile Duct (C.B.D.): The common bile duct measures 4 mm. Pancreas: There is normal echogenicity of the visualized pancreas. There is no demonstrated pancreatic mass or cyst. Right Kidney: Normal size of the right kidney. The right kidney measures 11 cm x 5.5 cm x 5.6 cm. Normal renal cortex. The right cortex measures 2.0 cm. There is no demonstrated renal mass or cyst. There is no right hydronephrosis. US/ABD Limited w/ Elastography IMPRESSION: 1. Liver stiffness measures 5 kPa compatible with F0-F1 (Normal to mild liver fibrosis) Metavir score. Electronically Signed: Richard Pickett MD at 10:50 EDT ,
== END | disposition home or self-care (01) ==
PROVIDERS: PCP Internal Medicine; Referring Provider Internal Medicine; Visit Provider Internal Medicine
DX: K76.89 Other specified diseases of liver (principal)
CPT/HCPCS: 76705; 76981

== ENCOUNTER 2022-10-13 08:20 | Day surgery (SDC) | payer BC, SELFPAY ==
[2022-10-13] VITALS (7 sets, daily range): BP systolic 81–126; BP diastolic 40–69; PULSE 61–76; RESP 16–18; TEMP 36.2–36.7; O2SAT 99–100; BMI 24.5
--- NOTE | 2022-10-13 08:45 | HP.PCM_ITS ---
HPI - General HPI Narrative WILMER ROBLES, is a 52 M who presents for screening colonoscopy. Patient denies any abdominal pain or blood in the stool. He has never had a colonoscopy in the past. He only reports family history of colon cancer in a grandparent. [facility] Medical History (Updated 10/08/22 @ 14:29 by Sarah Andersen) Adult acne Alcohol use Asthma Benign liver cyst GERD (gastroesophageal reflux disease) History of echocardiogram History of renal disease Loss of consciousness Migraine headache Non-smoker Wears contact lenses Wears glasses Home Medications diphenhydramine HCl 25 mg capsule (Banophen) 50 mg (2 x 25 mg) PO TID PRN PRN RASH/TOPICAL IRRITATION #0 caps 07/20/21 [Rx Last Taken Unknown] dapsone 5 % topical gel (Aczone) 1 applic topical BID 03/23/22 [History Last Taken Unknown] tadalafil 2.5 mg tablet (Cialis) 5 mg PO PRN ERECTILE DYSFUNCTION 03/23/22 [History Last Taken Unknown] albuterol sulfate 90 mcg/actuation breath activated powder inhaler (ProAir RespiClick) 1 inh inhalation PRN 10/08/22 [History Last Taken Unknown] famotidine 20 mg tablet 20 mg PO PRN INDIGESTION 10/08/22 [History Last Taken Unknown] meloxicam 15 mg tablet 15 mg PO PRN PAIN 10/08/22 [History Last Taken Unknown] Allergy/AdvReac Type Severity Reaction Status Date / Time doxycycline Allergy Intermediate Rash Verified 10/13/22 08:45 pseudoephedrine Allergy Intermediate Rash Verified 10/13/22 08:45 [From [facility]] Family History (Updated 09/07/22 @ 10:36 by Antonette Palafox) Grandfather Colon cancer Other Cancer Heart disease Surgical History (Updated 10/08/22 @ 14:29 by Sarah Andersen) History of testicular surgery Hx of wisdom tooth extraction Social History (Updated 09/07/22 @ 10:31 by Antonette Palafox) household members: spouse current occupational status: employed current occupation: [employer] Smoking Status: Never smoker substance use type: does not use Past Medical/Surgical History Planned Operation Planned Operative Procedure/s: CSCOPE OA Previous Hospitalizations/Surgeries HX Hospitalizations: No Any Problems With Anesthesia: Yes (N,V) You/Your Family Experience Fever (Hyperthermia) With Anes: No Cholinesterase deficiency: No Cardiovascular Hx Hypertension: No Respiratory Hx Sleep Apnea: No Hx Respiratory Tract Infection/Cold (presently): No Do You Snore Loudly (louder than talking or can be heard): Yes Do You Often Feel Tired/ Fatigued/ Sleepy Dring Daytime?: No Has Anyone Observed You Stop Breathing During Sleep?: No Result (for STOP score): Negative Smoking Status: Never smoker Neurological Does patient have nerve stimulator: No Reproduction : No Allergies doxycycline Allergy (Intermediate, Verified 10/13/22 08:45) Rash pseudoephedrine [From Sudafed] Allergy (Intermediate, Verified 10/13/22 08:45) Rash Jumpy Discharge Is Pt Admitted From a Senior Living, or a Assisted: No After D/C, Where Do you Plan to Go: Return Home Physical Exam Const alert and oriented x3 HEENT normocephalic Eyes PERRL Resp normal respiratory effort and normal air movement Cardio regular rate and regular rhythm GI soft to palpation, non-tender and non-distended Extremity normal to inspection Assessment & Plan Assessment/Plan (1) Encounter for screening for malignant neoplasm of colon: PLAN: I explained endoscopy in detail to the patient. I explained the risks including but not limited to stroke or heart attack with anesthesia, perforation of the GI tract, bleeding, infection. I explained that any of these could necessitate further emergency surgery. The patient understands and all questions were answered sufficiently. The patient wishes to proceed with procedure. Christopher Ferrari MD Pager: [facility] [address] [place] [address], [address] [place] [address] Office: Surgery Risks - Colonoscopy Risks Include but are not Limited To: Risks include but are not limited to: Bleeding, perforation requiring further surgery, inability to complete colonoscopy requiring barium enema.
[2022-10-13] MEDS: Lactated Ringers 1,000 ML 15 ML IV (08:49)
--- NOTE | 2022-10-13 09:21 | OP.CCLET_ITS ---
10/13/2022 Nasra Rock Re : Colonoscopy procedure for Norris Jones Dear Pranav This procedure was performed on Thursday, October 13, 2022. My impressions and recommendations are as follows: Impressions : - The entire examined colon is normal on direct and retroflexion views. - No specimens collected. Recommendations : - Discharge patient to home. - Resume previous diet. - Continue present medications. - Repeat colonoscopy in 10 years for screening purposes. My findings are described in the full procedure note, which is enclosed. If I can be of further assistance, please feel free to contact me at Doctor phone number(s): , Work: . Sincerely, Christopher Ferrari MD 10/13/2022 9:20:54 AM This report has been signed electronically.
--- NOTE | 2022-10-13 09:21 | OP.COLON_ITS ---
Patient Name: Norris Jones Procedure Date: 10/13/2022 9:01 AM Date of : 1970 Age: 52 Procedure: Colonoscopy Indications: Screening for colorectal malignant neoplasm Providers: Christopher Ferrari MD Medicines: Monitored Anesthesia Care Patient Profile: This is a 52 year old male. Refer to note in patient chart for documentation of history and physical. Last Colonoscopy: none. The patient's first colonoscopy is today. Complications: No immediate complications. Procedure: Pre-Anesthesia Assessment: - Prior to the procedure, a History and Physical was performed, and patient medications and allergies were reviewed. The patient's tolerance of previous anesthesia was also reviewed. The risks and benefits of the procedure and the sedation options and risks were discussed with the patient. All questions were answered, and informed consent was obtained. Prior Anticoagulants: The patient has taken no previous anticoagulant or antiplatelet agents. After reviewing the risks and benefits, the patient was deemed in satisfactory condition to undergo the procedure. After I obtained informed consent, the scope was passed under direct vision. Throughout the procedure, the patient's blood pressure, pulse, and oxygen saturations were monitored continuously. The was introduced through the anus and advanced to the cecum, identified by appendiceal orifice and ileocecal valve. The colonoscopy was performed without difficulty. The patient tolerated the procedure well. The quality of the bowel preparation was good. Scope In: 9:05:26 AM Scope Withdrawal Time 0 hours 6 minutes 4 seconds Scope Out: 9:16:53 AM Total Procedure Duration Time 0 hours 11 minutes 27 seconds Findings: The entire examined colon appeared normal on direct and retroflexion views. Impression: - The entire examined colon is normal on direct and retroflexion views. - No specimens collected. Recommendation: - Discharge patient to home. - Resume previous diet. - Continue present medications. - Repeat colonoscopy in 10 years for screening purposes. Procedure Code(s): --- Professional --- 31291, Colonoscopy, flexible; diagnostic, including collection of specimen(s) by brushing or washing, when performed (separate procedure) Diagnosis Code(s): --- Professional --- Z12.11, Encounter for screening for malignant neoplasm of colon CPT copyright 2017 [employer]. All rights reserved. The codes documented in this report are preliminary and upon metal mockup maker review may be revised to meet current compliance requirements. Christopher Ferrari MD 10/13/2022 9:20:54 AM This report has been signed electronically. Number of Addenda: 0 Note Initiated On: 10/13/2022 9:01 AM
--- NOTE | 2022-10-13 11:08 | SUR.PHASEII ---
[phone] Patrick Ferrari . pt and pt's requesting to speak with physician. [phone] Ferrari [phone] Pt ready to go home , would like Dr Ferrari to call him on his cell . Dr Ferrari called and informed.
== END 2022-10-13 11:12 | disposition home or self-care (01) ==
LOC: EN 08:20 → AC 08:22
PROVIDERS: PCP Internal Medicine; Referring Provider Internal Medicine; Visit Provider Surgery
PROC: 0DJD8ZZ Inspection of Lower Intestinal Tract, Via Natural or Artificial Opening Endoscopic (ICD-10-PCS; CPT 45378; principal; 2022-10-13 09:10)
DX: Z12.11 Encounter for screening for malignant neoplasm of colon (principal); J45.909 Unspecified asthma, uncomplicated; K21.9 Gastro-esophageal reflux disease without esophagitis
CPT/HCPCS: 45378; J7120; J2405

== ENCOUNTER → 2023-02-04 | Outpatient (CLI) | payer BC, SELFPAY ==
--- NOTE | 2023-02-04 07:59 | CDU_ITS ---
Reason For Study: syncope Rt. Velocities/BP Lt. Velocities/BP Prox CCA 143.0/29.8 cm/sec. Prox CCA 128.4/33.4 cm/sec. Mid CCA 132.1/35.3 cm/sec. Mid CCA 126.6/38.9 cm/sec. Dist CCA 103.5/32.3 cm/sec. Dist CCA 110.1/44.4 cm/sec. Prox ICA 75.3/15.1 cm/sec. Prox ICA 101.0/22.5 cm/sec. Mid ICA 82.6/31.1 cm/sec. Mid ICA 119.3/33.4 cm/sec. Dist ICA 88.8/39.7 cm/sec. Dist ICA 83.9/32.2 cm/sec. Rt. ICA/CCA = .7. Lt. ICA/CCA = .9. Prox ECA 92.5/18.8 cm/sec. Prox ECA 113.8/26.1 cm/sec. Rt. Vert. 56.9/18.8 cm/sec. Lt. Vert. 80.6/23.4 cm/sec. Right Extracranial There is intimal thickening but no significant atherosclerotic plaque noted in the right common carotid artery. There is intimal thickening but no significant atherosclerotic plaque noted in the right internal carotid artery. There is intimal thickening but no significant atherosclerotic plaque noted in the right external carotid artery. Antegrade flow is noted in the right vertebral artery. Left Extracranial There is intimal thickening but no significant atherosclerotic plaque noted in the left common carotid artery. There is intimal thickening but no significant atherosclerotic plaque noted in the left internal carotid artery. There is intimal thickening but no significant atherosclerotic plaque noted in the left external carotid artery. Antegrade flow is noted in the left vertebral artery. Procedure Carotid Duplex 45560. This is a Carotid Duplex examination using B-mode, color flow and specral Doppler. The exam was diagnostic. Exam performed in department. VL/Carotid Duplex Ultrasound Interpretation Summary Normal right extracranial internal carotid. Normal left extracranial internal carotid. Patent and antegrade vertebrals bilaterally. Ordering Physician: Nasra Rock Performed By: Gary Shaw RVT
--- NOTE | 2023-02-04 07:59 | CT_ITS ---
STUDY: CT CHEST WITHOUT CONTRAST REASON FOR EXAM: Male, 52 years old. Hyperlipidemia, acquired. Cardiac over read examination. RADIATION DOSAGE (If Supplied By Facility): CTDIvol = ( 12.19 ) mGy, DLP = ( 268.17 ) mGycm TECHNIQUE: Transaxial imaging was performed without the administration of intravenous contrast material. Individualized dose optimization techniques were used for this CT. COMPARISON: Comparison is made with prior examination July 18, 2021. FINDINGS: CHEST The lungs are normal. There is no demonstrated pleural abnormality. There are calcifications of the coronary arteries. There are small lymph nodes within the mediastinum, which are normal in size and morphology most compatible with reactive lymph hyperplasia. Normal hilar regions. Normal unenhanced pulmonary arteries. Normal aorta arch and descending thoracic aorta. Normal osseous structures. There is a 2.2 cm cyst in the posterior aspect of the right lobe of the liver. CT/Limited Chest CT Cardiac Only IMPRESSION: Coronary calcification. Small cyst in the posterior right lobe of the liver. . Electronically Signed: Richard Pickett MD at 9:27 EST ,
--- NOTE | 2023-02-08 16:00 | CA.SCORE ---
Calcium Scoring Date of Study:: 02/04/23 Indications Indications: Hyperlipidemia Coronary Calcium Scoring: High-resolution Computed Tomographic imaging of the chest was performed on [02/04/2023], with particular attention paid to the coronary arteries. Images from the examination were analyzed for the presence and extent of coronary artery calcification , using coronary calcium quantification software. The patient tolerated the procedure well and there were no complications. The results of the coronary calcification analysis are provided below. Findings Coronary Artery Left Main (LM): 24 Left Anterior Descending (LAD): 6 Left Circumflex (LCX): 0 Right Coronary Artery (RCA): 41 Total Agatston Score: 71 Percentile Rankinth to 75th percentile Calcium Scoring Interpretation: Different methods to categorize the overall amount of coronary plaque. Overall amount CAC SIS Visual of coronary plaque P1 Mild -100 <2 1-2 vessels with mild amount of plaque P2 Moderate 101-300 3-4 1-2 vessels with moderate amount, 3 vessels with mild amount of plaque P3 Severe 301-999 5-7 3 vessels with moderate amount, 1 vessel with severe amount of plaque P4 Extensive >1000 >8 2-3 vessels with severe amount of plaque Calcium Score: Mild: 1-2 vessels w/mild amount of plaque Conclusion: Mild atherosclerotic plaquing noted.
== END | disposition home or self-care (01) ==
PROVIDERS: PCP Internal Medicine; Visit Provider Internal Medicine
DX: R55 Syncope and collapse (principal); E78.5 Hyperlipidemia, unspecified
CPT/HCPCS: 75571; 76380; 93880

== ENCOUNTER → 2023-07-16 | Outpatient (CLI) | payer BC, SELFPAY ==
[2023-07-16 14:58] LABS: Troponin-I HS < 3 pg/mL (3.0-78.0)
== END | disposition home or self-care (01) ==
LOC: LABSPEC 13:59
PROVIDERS: PCP Internal Medicine; Referring Provider Internal Medicine; Visit Provider Internal Medicine
DX: R07.9 Chest pain, unspecified (principal)
CPT/HCPCS: 84484

== ENCOUNTER 2023-11-17 09:00 | Outpatient (RCR) | payer BC, SELFPAY ==
--- NOTE | 2023-10-12 14:34 | HP.PTEVAL ---
Patient's Visit Information Visit Information Visit Information: WILMER ROBLES is a 53 year old M referred to Physical Therapy by Dr. Nasra Rock DO with a diagnosis of LUMBAR RADICULOPATHY. Date of Evaluation: 10/12/23 Physical Therapist: Danny eWbster, PT, Cert MDT, OCS Visit Plan Frequency: 2x /Week Duration: 4 Weeks Plan: PT INTERVENTIONS LUMBAR FLEXION ,DLS ,POSTURAL EX'S ,MODALITIES POSSIBLE LUMBAR TRACTION( LOSSING) Subjective Subjective: This 53 y/o male presents to physical therapy with lumbar radiculopathy .Patient developed leg symptoms coming back from trip from driving and flying. Patient symptoms located right lateral hip to groin and quad. Min back pain. Patient had x-rays -. Prescribed gabapentin and vicodin. Aggravating factors walking 5mins,standing , lifting careful . Alleviating factors sitting medication. Pain at night in thigh sleeps restful. Denies coughing/sneezing-. If sneezed hard would hurt. Bowel/bladder-. 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 Patient condition affects QOL and function and job demands. Patient goals to decrease pain.Need PT before any MRI. 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 Right Lower Extremity: Pain Intensity (Out of 10): 4 Pain Intensity Range: 10 Comment: [facility] Objective Objective: POSTURE: WFL PALAPTION: tender SI/LS NEURO:denies paresthesia/tingling ,reflexes L3-4,L4-5 ,L5-S1 2/3 GAIT: reciprocal pattern PROM: Hip WNL -flexion ,IR 40 degrees HAMSTRINGS: min tight LUMBAR ROM : flexion min loss ,extension severe loss ,side glides right mod/severe loss pain ,side glides left min loss Special Tests L/S Slump test left side: Negative L/S Slump test right side: Negative L/S Left Straight Leg Raise: Negative L/S Right Straight Leg Raise: Positive Lumbar Standing: Flexion - Mechanical Response: No effect Lumbar Standing: Flexion - Symptoms During Testing: Increases Lumbar Standing: Flexion - Symptoms After Testing: Worse Lumbar Standing: Extension - Mechanical Response: No effect Lumbar Standing: Extension - Symptoms During Testing: Increases Lumbar Standing: Extension - Symptoms After Testing: Worse Lumbar Standing: Right Side Glides - Mechanical Response: No effect Lumbar Standing: Right Side [place] - Symptoms During Testing: Increases Lumbar Standing: Right Side [place] - Symptoms After Testing: Worse Lumbar Standing: Left Side [place] - Mechanical Response: No effect Lumbar Standing: Left Side [place] - Symptoms During Testing: No effect Lumbar Standing: Left Side [place] - Symptoms After Testing: No effect Lumbar Lying: Flexion - Mechanical Response: No effect Lumbar Lying: Flexion - Symptoms During Testing: Decreases Lumbar Lying: Flexion - Symptoms After Testing: Better Lumbar Lying: Extension - Mechanical Response: No effect Lumbar Lying: Extension - Symptoms During Testing: Increases Lumbar Lying: Extension - Symptoms After Testing: Worse R Hip Scour: Negative R Hip Quadrant - Intraarticular Pathology: Negative Balance/Special Test Scores Oswestry Low Back Score: 28 Goals Goal 1:: Patient to be I with HEP for back Goal Time Frame: 4-6 Weeks Goal 2:: Patient to demonstrate 50% improvement with increase function and walking/standing Goal Time Frame: 4-6 Weeks Goal 3:: Patient to improve lumbar ROM for function of recovery with extension for walking and standing Goal Time Frame: 4-6 Weeks Goal 4:: Patient improve back oswestry score by 5 points to improve QOL amd function Goal Time Frame: 4-6 Weeks Goal 5:: Patient be able to stand/walk > 30 to with less leg pain Goal Time Frame: 4-6 Weeks Rehabilitation Potential Physical Therapy Diagnosis: This patient has possible stenosis with pain worse with extension ,right side glide ,better with flexion ,sitting and worse with walking and standing thus will benefit from skilled PT Rehabilitation Potential: Good Anticipated Interventions Patient/Client Instruction: Educate patient on: Condition and Plan of Care For the Purpose of:: To decrease pain, To increase ROM, To improve muscle performance and motor function, To increase tolerance to activity/condition/position, To improve ability of physical actions for home/community/work/leisure, To improve gait and locomotor functions, To improve health of tissue, To decrease soft tissue restriction, To increase flexibility/ROM, To reduce risk of recurrence and To prevent re-injury Therapeutic Exercise to Include: Strength training, Postural training, Flexibilty training, Active ROM and Boni Exercises For the Purpose of:: To decrease pain, To increase ROM, To improve muscle performance and motor function, To improve ability to perform ADL's, To increase tolerance to activity/condition/position, To improve ability of physical actions for home/community/work/leisure, To improve gait and locomotor functions, To improve health of tissue, To decrease soft tissue restriction and To increase flexibility/ROM TENS: Yes IF ES: Yes Cryotherapy (ice pack, ice massage): Yes Thermo therapy (hot pack): Yes Ultrasound (thermal/non thermal): Yes Pelvic traction supine: Yes For the Purpose of:: To decrease pain, To increase ROM, To improve muscle performance and motor function, To improve ability to perform ADL's, To increase tolerance to activity/condition/position, To improve ability of physical actions for home/community/work/leisure, To improve health of tissue, To decrease soft tissue restriction, To increase flexibility/ROM and To improve tolerance to ADL's Text: Thank you for the opportunity to evaluate your patient. For Medicare and Medicare HMO plans, please review the plan of care and approve it. It will need to be FAXED BACK to us at [phone] for Medicare purposes. For Medicare only, by signing this I certify the plan of care. Please let me know if there are questions or concerns regarding this plan of care. Physician Signature: Date:
--- NOTE | 2023-11-17 09:32 | HP.PTDCSUM ---
Discharge Summary D/C summary: It has been my pleasure to treat WILMER ROBLES referred by Dr. Nasra Rock DO, with the diagnosis of LUMBAR RADICULOPATHY for a total of 7 visit(s). Discharge Date: Please see the following information for a summary of their discharge status. Subjective Subjective: Feeling better overall ,back to normal Pain Right Lower Extremity: Pain Intensity (Out of 10): 2 Overall Improvement % Improvement: 90 Objective Objective/Function: POSTURE: WFL PALAPTION: tender SI/LS NEURO:denies paresthesia/tingling ,reflexes L3-4,L4-5 ,L5-S1 2/3 GAIT: reciprocal pattern PROM: Hip WNL -flexion ,IR 40 degrees HAMSTRINGS: min tight LUMBAR ROM : flexion min loss ,extension severe loss ,side glides right mod/severe loss pain ,side glides left min loss Goals Goal 1:: Patient to be I with HEP for back Goal Progress: Goal Met Goal 2:: Patient to demonstrate 50% improvement with increase function and walking/standing Goal Progress: Goal Met Goal 3:: Patient to improve lumbar ROM for function of recovery with extension for walking and standing Goal Progress: Goal Met Goal 4:: Patient improve back oswestry score by 5 points to improve QOL amd function Goal Progress: Goal Met Goal 5:: Patient be able to stand/walk > 30 to with less leg pain Goal Progress: Goal Met Plan Plan: D/C D/C Information d/c sentence: If there are questions or concerns regarding this patient's physical therapy, please feel free to call me at [phone]. Thank you for the referral of this patient. Sincerely, Danny Webster, PT, Cert MDT, OCS Balance/Gait/Functional tests Balance/Special Test Scores Oswestry Low Back Score: 3 Improvement % Improvement: 90
== END 2023-11-17 09:52 | disposition home or self-care (01) ==
LOC: PT 09:00
PROVIDERS: PCP Internal Medicine; Referring Provider Internal Medicine; Visit Provider Internal Medicine
DX: M54.16 Radiculopathy, lumbar region (principal)
CPT/HCPCS: 97110; 97113; 97162; 97530

== ENCOUNTER → 2025-02-27 | Outpatient (CLI) | payer BC, SELFPAY ==
--- OUTSIDE RECORDS SUMMARY | 2025-02-27 20:04 | XMS RPT_ITS | CCD ---
Author Organization [facility] Care Team Providers Care Physical Chemist Name Role Phone Dima Scott Unavailable Dima Scott Primary Care Provider [phone] Tyler Dima Cosby Unavailable Hedge , Dima Cosby Primary Care Provider DIMA SCOTT Primary Care Unavailable DIMA SCOTT Admitting Unavailable Hedge Dima ROMERO Primary Care Provider Dr. Lonny Strickland Emergency Provider [phone] DIMA SCTOT Primary Care Provider [phone] Dr. Tae Carroll Admit Provider Dr. Tae Carroll Attending Provider Dr. Tae Carroll Other Provider Dr. Yobani Laws Attending Provider Dr. Tirso Gaytan Attending Provider Dr. Tirso Gaytan Other Provider DIMA SCOTT Attending Unavailable HEDGE, DIMA COSBY Primary Care Unavailable HEDGE, DIMA COSBY Attending Unavailable HEDGE, DIMA COSBY Primary Care Unavailable AMAYA MARIN Attending Unavailable HEDGE, DIMA COSBY Primary Care Unavailable HEDGE, DIMA COSBY Attending Unavailable TYLER, DIMA COSBY Primary Care Unavailable Hedge Dima ROMERO Primary Care Provider Hedge Dima ROMERO Primary Care Provider Fast DO, Nasra A Unavailable Kendra DUNHAM, Irma Pham Unavailable Unavailable Unavailable Friend, Dr. Thomas Unavailable Dr. Santino Webber Unavailable Savannah SEWING MACHINE OPERATOR PAPER BAGS, Kayela Unavailable Unavailable Fast DO, Nasra A Unavailable Fast DO, Nasra A Attending Unavailable Fast DO, Nasra A Referring Unavailable Fast DO, Ansra A Consulting Unavailable Manchak SEWING MACHINE OPERATOR PAPER BAGS, Libby Unavailable Unavailable Javy, Antonette Attending Provider Unavailable Natacha NETWORK OPERATIONS PROJECT MANAGER, Halle Unavailable Unavailable Slarb NETWORK OPERATIONS PROJECT MANAGER, Saray Unavailable Unavailable Fast, Dr. Hammonds Primary Care Provider [phone] Dr. Tirso Trinidad Attending Provider [phone] Fast, Dr. Hammonds Other Provider Dr. Thad Zurita Attending Provider [phone] Fast, Nasra Primary Care Unavailable Yudith, [place] Attending Unavailable Fast, Nasra Consulting Unavailable Fast, Nasra Primary Care Unavailable Fast, Nasra Attending Unavailable Fast, Nasra Primary Care Unavailable Fast, Nasra Attending Unavailable Fast, Nasra Referring Unavailable Fast, Nasra Primary Care Unavailable Kendra, Irma Attending Unavailable Kendra, Irma Referring Unavailable Fast, Nasra Primary Care Unavailable Yudith, Thad Attending Unavailable Fast, Nasra Primary Care Unavailable Tirso Trinidad Attending Unavailable Fast, Nasra Referring Unavailable Yudith, Thad Attending Unavailable Fast, Nasra Referring Unavailable Allergies Allergy Classification Reported Allergen(s) Allergy Type Date of Onset Reaction(s) Facility (20 sources) Doxycycline Drug Allergy 2 [facility] Work Phone: (4 sources) Pseudoephedrine Drug Allergy 2 [facility] (1 source) Doxycycline Drug Allergy 3 [facility] Repository (1 source) Pseudoephedrine Drug Allergy 3 [facility] Repository Medications Current Medications Medication Drug Class(es) Dates Sig (Normalized) Sig (Original) 200 actuat albuterol 0.09 mg/actuat dry powder inhaler (20 sources) beta2-Adrenergic Agonist Start: 10-08-2022 Albuterol Sulfate [Albuterol Sulfate 90 Mcg/Actuation Breath Activated Powder Inhaler] (Albuterol Sulfate 90 Mcg/Actuation Breath Activated Powder ) 90 mcg/actuation aerosol powdr breath activated Active 1 INH INHALATION NEEDED October 08, 2022 12:00am Start: 07-14-2022 End: 12-18-2022 ProAir RespiClick 90 mcg/act uation inhalation Aerosol Powder, Breath Activated 2 (two) inhalation puffs 4 x a day as needed for 0 days Quantity: 1 {Each} Refills: 3 Ordered: 18-Dec-2022 Saray Liang LPN Start : 14-Jul-2022 End : 18-Dec-2022 Inactive Comments: Medication taken as needed. Start: 06-26-2019 take 1 puff(s) by in halation every six hours as needed for wheezing albuterol (Ventolin HFA) 90 mcg/actuation inhaler Inhale 1 (one) puff every 6 (six) hours as needed for wheezing or shortness of breath . 1 Inhaler 2 06/26/2019 Active Start: 06-26-2019 End: 08-15-2020 take 1 puff(s) by inhalation every six hours as needed for wheezing albuterol (Ventolin HFA) 90 mcg/actuation inhaler Inhale 1 (one) puff every 6 (six) hours as needed for wheezing or shortness of breath . 1 Inhaler 2 06/26/2019 08/15/2020 Discontinued (Reorder (Suppress CancelRx Message to Pharmacy)) Start: 12-15-2017 take 1 puff(s) by in halation every six hours as needed for wheezing albuterol (VENTOLIN HFA) 90 mcg/actuation inhaler Inhale 1 (one) puff every 6 (six) hours as needed for wheezing or shortness of breath. 1 Inhaler 2 12/15/2017 Active Start: 03-17-2017 albuterol (LUCILA TOLIN HFA) 90 mcg/actuation inhaler Inhale 1 (one) puff every 6 (six) hours as needed for wheezing or shortness of breath. 1 Inhaler 2 03/17/2017 Active Start: 03-13-2016 End: 03-13-2017 albuterol 90 mcg/actuation i nhaler Indications: Acute URI Inhale 2 puffs every 4 (four) hours as needed for wheezing or shortness of breath (cough). 1 Inhaler 2 03/13/2016 03/13/2017 Active Comment on above: Medication taken as needed. clobetasol propionate 0.0005 mg/mg topical gel (17 sources) Corticosteroid Start: 03-11-2020 clobetasoL (TEMOVATE) 0.05 % gel APPLY TO AFFECTED AREA TWICE A DAY 15 g 5 03/11/2020 Active Start: 04-11-2018 End: 03-11-2020 clobetasol (TEMOVATE) 0.05 % gel Apply topically 2 (two) times a day . 30 g 2 04/11/2018 03/11/2020 Discontinued clobetasol (KITTY VATE) 0.05 % gel Apply topically 2 (two) times a day. Active dapsone 0.05 mg/mg topical gel (20 sources) Sulfone Start: 03-23-2022 Dapsone (Aczon e) 5 % gel Active 1 APPLIC TOPICAL TWICE A DAY March 23, 2022 1:00am rub in gently and completely Start: 06-26-2019 dapsone 7.5 % GlwP Indications: Acne, unspecified acne type Apply 1 application topically daily . 90 g 1 06/26/2019 Active Start: 07-07-2017 dapsone 7.5 % GlwP Indications: Acne, unspecified acne type Apply 1 application topically daily. 90 g 1 07/07/2017 Active Start: 07-02-2017 End: 07-07-2017 dapsone (ACZONE) 5 % topical gel Indications: Acne, unspecified acne type Apply 1 Bottle topically 2 (two) times a day. 60 g 2 07/02/2017 07/07/2017 Discontinued Start: 02-12-2016 dapsone (ACZON E) 5 % topical gel Indications: Acne, unspecified acne type Apply topically once daily at night. 60 g 6 02/12/2016 Active diphenhydrAMINE hydrochloride 25 mg oral capsule (4 sources) Histamine-1 Receptor Antagonist Start: 07-20-2021 Diphenhydramine Hcl (Banophen) 25 mg Capsule Active 50 MG PO 3 TIMES DAILY NEEDED 0 July 20, 2021 12:00am famotidine 20 mg oral tablet (6 sources) Histamine-2 Receptor Antagonist Start: 10-08-2022 take 20 mg by mouth once as needed Famotidine Active 20 MG PO NEEDED October 08, 2022 12:00am for 4 more days Start: 07-20-2021 End: 10-08-2022 take 20 mg by mouth twice daily Famotidine Discontinued 20 MG PO TWICE A DAY July 20, 2021 12:00am October 08, 2022 2:21pm for 4 more days meclizine hydrochloride 25 mg oral tablet (2 sources) Antiemetic Start: 07-20-2021 take 25 mg by mouth three times daily Meclizine Active 25 MG PO THREE TIMES A DAY July 20, 2021 10:17am meloxicam 15 mg oral tablet (20 sources) Nonsteroidal Anti-inflammatory Drug Start: 10-08-2022 End: 12-18-2022 Meloxicam Active 15 MG PO NEEDED October 08, 2022 12:00am Start: 07-29-2022 take 1 tablet by jorge a th once daily at mealtime meloxicam 15 mg oral tablet 1 (one) tablet qd with food for 0 days Quantity: 30 {Tablet} Refills: 1 Ordered: 29-Jul-2022 Fast DO, Nasra A Fast DO, Nasra A Start : 29-Jul-2022 Active Start: 06-19-2022 take 1 tablet by jorge a th once daily at mealtime meloxicam 15 mg oral tablet 1 (one) tablet qd with food for 0 days Quantity: 30 {Tablet} Refills: 0 Ordered: 19-Jun-2022 Fast DO, Nasra A Fast DO, Nasra A Start : 19-Jun-2022 Active Start: 01-06-2019 End: 02-05-2019 take 1 tablet by mouth once daily as needed for pain meloxicam (MOBIC) 15 MG tablet Take 1 (one) tablet (15 mg total) by mouth daily as needed for pain . 30 tablet 1 01/06/2019 02/05/2019 Active Completed/Discontinued Medications Medication Drug Class(es) Dates Sig (Normalized) Sig (Original) amitriptyline hydrochloride 10 mg oral tablet (19 sources) Tricyclic Antidepressant Start: 09-16-2022 End: 12-18-2022 take 1 tablet by mouth once daily at bedtime amitriptyline 10 mg oral tablet 1 (one) tablet qhs for 0 days Quantity: 30 {Tablet} Refills: 3 Ordered: 18-Dec-2022 Saray Liang LPN Start : 16-Sep-2022 End : 18-Dec-2022 Inactive Start: 06-19-2022 End: 07-29-2022 take 1 tablet by mouth once daily at bedtime amitriptyline 10 mg oral tablet 1 (one) tablet qhs for 0 days Quantity: 30 {Tablet} Refills: 3 Ordered: 29-Jul-2022 Fast DO, Nasra A Fast DO, Nasra A Start : 19-Jun-2022 End : 29-Jul-2022 Inactive amoxicillin 250 mg oral capsule (3 sources) Penicillin-class Antibacterial End: 02-28-2019 take 1 capsule by mouth three times daily amoxicillin (AMOXIL) 250 MG capsule Take 250 mg by mouth 3 (three) times a day . 0 02/28/2019 Discontinued (Therapy completed) cefdinir 300 mg oral capsule (15 sources) Cephalosporin Antibacterial Start: 07-29-2022 End: 09-16-2022 take 1 capsule by mouth twice daily cefdinir 300 mg oral capsule 1 (one) capsule bid for 0 days Quantity: 20 {Capsule} Refills: 0 Ordered: 16-Sep-2022 Libby Marion CMA Start : 29-Jul-2022 End : 16-Sep-2022 Inactive cetirizine hydrochloride 10 mg oral tablet (20 sources) Histamine-1 Receptor Antagonist Start: 05-21-2022 End: 06-19-2022 take 1 tablet by mouth once daily ZyrTEC 10 mg oral tablet 1 Tablet daily for 0 days Quantity: 30 {Tablet} Refills: 0 Ordered: 19-Jun-2022 Omar Monroe CMA Start : 21-May-2022 End : 19-Jun-2022 Inactive cyclobenzaprine hydrochloride 10 mg oral tablet (4 sources) Muscle Relaxant Start: 03-27-2019 End: 09-21-2019 take 1 tablet by mouth once daily as needed for muscle spasms cyclobenzaprine (FLEXERIL) 10 MG tablet Indications: Spasm of thoracic back muscle Take 1 tab PO once daily prn muscle spasms . 14 tablet 0 03/27/2019 09/21/2019 Discontinued (Therapy completed) Start: 01-06-2019 End: 01-16-2019 take 1 tablet by mouth three times daily as needed for muscle spasms cyclobenzaprine (FLEXERIL) 10 MG tablet Take 1 (one) tablet (10 mg total) by mouth 3 (three) times a day as needed for muscle spasms . 30 tablet 0 01/06/2019 01/16/2019 Active doxycycline hyclate 100 mg oral capsule (9 sources) Tetracycline-class Drug Start: 06-09-2021 End: 07-20-2021 take 100 mg by mouth twice daily Doxycycline Hyclate Discontinued 100 MG PO TWICE A DAY July 18, 2021 12:00am July 20, 2021 10:16am fluticasone propionate 0.05 mg/actuat metered dose nasal spray (3 sources) Corticosteroid Start: 12-14-2015 End: 01-06-2019 take 1 spray(s) nasal route twice daily fluticasone (FLONASE) 50 mcg/actuation nasal spray INHALE 1 SPRAY IN EACHY NOSTRIL TWICE A DAY 0 12/14/2015 01/06/2019 Discontinued (Therapy completed) ibuprofen 200 mg oral capsule (20 sources) Nonsteroidal Anti-inflammatory Drug Start: 05-21-2022 End: 07-14-2022 take 3 capsules by mouth three times daily ibuprofen 200 mg oral capsule 3 (three) capsule tid for 0 days Quantity: 60 {Capsule} Refills: 0 Ordered: 14-Jul-2022 Fast DO, Nasra A Fast DO, Nasra A Start : 21-May-2022 End : 14-Jul-2022 Inactive minocycline 100 mg oral capsule (20 sources) Tetracycline-class Drug Start: 07-24-2019 End: 05-22-2021 take 1 capsule by mouth once daily minocycline (MINOCIN,DYNACIN) 100 MG capsule TAKE 1 CAPSULE BY MOUTH EVERY DAY 30 capsule 6 11/13/2019 06/12/2020 Discontinued Start: 09-11-2015 End: 01-28-2017 take 1 capsule by mouth once daily minocycline (MINOCIN,DYNACIN) 100 MG capsule TAKE 1 CAPSULE (100 MG TOTAL) BY MOUTH DAILY. 0 09/11/2015 Active montelukast 10 mg oral tablet (16 sources) Leukotriene Receptor Antagonist Start: 10-23-2022 End: 12-18-2022 take 1 tablet by mouth once daily at bedtime montelukast 10 mg oral tablet 1 (one) tablet qhs for 0 days Quantity: 30 {Tablet} Refills: 3 Ordered: 18-Dec-2022 Slarb NETWORK OPERATIONS PROJECT MANAGER, Saray Start : 23-Oct-2022 End : 18-Dec-2022 Inactive Start: 10-23-2022 End: 09-16-2022 take 1 tablet by mouth once daily at bedtime montelukast 10 mg oral tablet 1 (one) tablet qhs for 0 days Quantity: 30 {Tablet} Refills: 3 Ordered: 23-Oct-2022 Fast DO, Nasra A Fast DO, Nasra A Start : 23-Oct-2022 End : 16-Sep-2022 Active Start: 10-23-2022 End: 09-16-2022 take 1 tablet by mouth once daily at bedtime montelukast 10 mg oral tablet 1 (one) tablet qhs for 0 days Quantity: 30 {Tablet} Refills: 3 Ordered: 23-Oct-2022 Fast DO, Nasra A Fast DO, Nasra A Start : 23-Oct-2022 End : 16-Sep-2022 Active Start: 07-14-2022 End: 09-16-2022 take 1 tablet by mouth once daily at bedtime montelukast 10 mg oral tablet 1 (one) tablet qhs for 0 days Quantity: 30 {Tablet} Refills: 2 Ordered: 16-Sep-2022 Fast DO, Nasra A Fast DO, Nasra A Start : 14-Jul-2022 End : 16-Sep-2022 Inactive omeprazole 20 mg delayed release oral capsule (16 sources) Proton Pump Inhibitor Start: 07-14-2022 End: 12-18-2022 take 1 capsule by mouth before mealtime omeprazole 20 mg oral capsule,delayed release (enteric coated) 1 (one) capsule 1/2 hour before meal for 0 days Quantity: 30 {Capsule} Refills: 1 Ordered: 18-Dec-2022 Slarb NETWORK OPERATIONS PROJECT MANAGER, Saray Start : 14-Jul-2022 End : 18-Dec-2022 Inactive predniSONE 20 mg oral tablet (20 sources) Start: 05-21-2022 End: 06-19-2022 take 1 tablet by mouth once daily predniSONE 20 mg oral tablet 1 (one) tablet daily for 0 days Quantity: 5 {Tablet} Refills: 0 Ordered: 19-Jun-2022 Omar Monroe CMA Start : 21-May-2022 End : 19-Jun-2022 Inactive Start: 07-20-2021 take 40 mg by mouth once at breakfast Prednisone Active 40 MG PO WITH BREAKFAST 0 July 20, 2021 10:16am for 4 more days Start: 07-18-2021 predniSONE (DE LTASONE) 10 MG tablet Indications: Dermatitis , Rash and nonspecific skin eruption Take 50 mg daily for 3 days; then 40 mg daily for 3 days; then 30 mg daily for 3 days; then 20 mg daily for 3 days; then 10 mg daily for 3 days. . 45 tablet 0 07/18/2021 Active Pseudoephedrine (4 sources) alpha-Adrenergic Agonist Start: 07-19-2021 End: 07-20-2021 Sudafed PE Discontinued 10 MG July 19, 2021 2:46am July 20, 2021 10:17am Start: 07-19-2021 End: 07-20-2021 Sudafed PE Discontinued 10 M G July 18, 2021 11:00pm July 20, 2021 9:17am Start: 07-19-2021 End: 07-20-2021 Sudafed PE Discontinued 10 M G July 19, 2021 12:00am July 20, 2021 10:17am tadalafil 5 mg oral tablet (20 sources) Phosphodiesterase 5 Inhibitor Start: 12-18-2022 take 1 tablet by mouth once daily tadalafiL 5 mg oral tablet 1 (one) tablet qd for 0 days Quantity: 30 {Tablet} Refills: 4 Ordered: 18-Dec-2022 Fast DO, Nasar A Fast DO, Nasra A Start : 18-Dec-2022 Active Start: 07-14-2022 take 1 tablet by jorge a th once daily tadalafiL 5 mg oral tablet 1 (one) tablet qd for 0 days Quantity: 30 {Tablet} Refills: 4 Ordered: 14-Jul-2022 Fast DO, Nasra A Fast DO, Nasra A Start : 14-Jul-2022 Active Start: 03-23-2022 Tadalafil (Roseanna lis) 2.5 mg tablet Active 5 MG PO NEEDED March 23, 2022 1:00am Start: 11-21-2021 take 1 tablet by jorge a th once daily as needed tadalafiL 5 MG tablet Indications: Erectile dysfunction, unspecified erectile dysfunction type Take 1 (one) tablet (5 mg total) by mouth daily as needed . 15 tablet 6 11/21/2021 Active Start: 03-07-2019 End: 11-19-2021 take 1 tablet by mouth once daily as needed Cialis 5 mg tablet Indications: Erectile dysfunction, unspecified erectile dysfunction type TAKE 1 TABLET BY MOUTH EVERY DAY NEEDED 30 tablet 2 03/07/2019 02/24/2021 Discontinued Start: 03-13-2016 End: 07-07-2017 take 1 tablet by mouth once daily as needed tadalafil (CIALIS) 5 MG tablet Indications: Erectile dysfunction, unspecified erectile dysfunction type Take 1 tablet (5 mg total) by mouth daily as needed for erectile dysfunction. 30 tablet 0 03/13/2016 Active Comment on above: Medication taken as needed. Problems Active Problems Problem Classification Problem Date Documented Date Episodic/Chronic Allergic reactions (10 sources) Inflammatory dermatosis; Translations: [Dermatitis, unspecified] Episodic Asthma (20 sources) Asthma; Translations: [Asthma] 07-14-2022 Chronic Cardiac and circulatory congenital anomalies (20 sources) Patent foramen ovale; Translations: [Patent foramen ovale] 09-16-2022 Chronic Comment on above: discussed in detail when we would need to do something with Conditions associated with dizziness or vertigo (20 sources) Dizziness; Translations: [Dizziness] 06-19-2022 Episodic Comment on above: he had workup try to get old records discussed symtpms of stroke to watch for and gave him vertigo exercises and handout- call worse or no resolving- better with exercise s Disorders of lipid metabolism (20 sources) Hyperlipoproteinemia; Translations: [Hyperlipidemia, acquired] Onset: 02-16-2023 09-16-2022 Chronic Comment on above: discussed diet and e x see whether developingplaque Esophageal disorders (20 sources) Gastroesophageal reflux disease; Translations: [GERD (gastroesophageal reflux disease)] 07-14-2022 Chronic Comment on above: avoid caffeine and e ating late hob up chronic stable-sulema nue present regimen better better with diet rachelle nge Headache; including migraine (20 sources) Chronic tension-type headache; Translations: [Chronic tension headaches] 06-19-2022 Chronic Comment on above: he is using amitrypt yline and helping he is using amitrypt yline and helping- can try off and see if come back chronic stable-sulema nue present regimen better- use amitrypt yline prn better using amitryp tyline occ not need routinely Immunizations and screening for infectious disease (20 sources) Pneumococcal vaccination given; Translations: [Pneumococcal vaccination given] 09-16-2022 Episodic Joint disorders and dislocations; trauma-related (1 source) Disorder of patellofemoral joint; Translations: [Patellofemoral dysfunction of right knee] Episodic Nutritional deficiencies (20 sources) Vitamin D deficiency; Translations: [Vitamin D deficiency] 09-16-2022 Chronic Comment on above: chronic stable-sulema nue present regimen Other connective tissue disease (1 source) Trochanteric bursitis of left hip; Translations: [Trochanteric bursitis, left hip] Episodic Other connective tissue disease (20 sources) Right achilles tendonitis; Translations: [Achilles tendinitis of right lower extremity] 05-21-2022 Episodic Other connective tissue disease (20 sources) Bilateral elbow tendinitis; Translations: [Bilateral elbow tendonitis] 09-16-2022 Episodic Comment on above: rest ice nsid if not pbetter pt- see ortho Other connective tissue disease (1 source) Tendinitis of right rotator cuff; Translations: [Rotator cuff tendonitis, right] Other ear and sense organ disorders (1 source) Impacted cerumen in left ear; Translations: [Impacted cerumen, left ear] Episodic Other liver diseases (20 sources) Liver cyst; Translations: [Liver cyst] 06-19-2022 Chronic Other lower respiratory disease (20 sources) Cough; Translations: [Cough] Resolved: 09-16-2022 07-14-2022 Episodic Comment on above: treat the gerd and a sthma and can take zyrtec at hs as needed- call if continues Other male genital disorders (2 sources) Impotence of organic origin; Translations: [Erectile dysfunction] Onset: 05-20-2015 05-20-2015 Chronic Other male genital disorders (5 sources) Impotence; Translations: [Erectile dysfunction] Onset: 05-20-2015 05-20-2015 Chronic Other male genital disorders (20 sources) Male erectile dysfunction, unspecified; Translations: [Impotence of organic origin] Onset: 05-20-2015 05-20-2015 Chronic Other nervous system disorders (20 sources) H/O: migraine; Translations: [History of migraine headaches] 06-19-2022 Episodic Comment on above: gets once a day Other non-traumatic joint disorders (1 source) Shoulder pain; Translations: [Right shoulder pain, unspecified chronicity] Episodic Other non-traumatic joint disorders (1 source) Knee pain; Translations: [Acute pain of right knee] Episodic Other non-traumatic joint disorders (1 source) Hip pain; Translations: [Pain in left hip] Episodic Other nutritional; endocrine; and metabolic disorders (20 sources) Overweight in adulthood with body mass index of 25 or more but less than 30; Translations: [BMI 25.0-25.9,adult] Resolved: 09-16-2022 06-19-2022 Episodic Other screening for suspected conditions (not mental disorders or infectious disease) (20 sources) Patient encounter status; Translations: [Encounter for screening for malignant neoplasm of colon] Episodic Other skin disorders (2 sources) Eruption; Translations: [Rash and other nonspecific skin eruption] Episodic Other upper respiratory disease (1 source) Allergic rhinitis due to pollen; Translations: [Allergic rhinitis due to pollen, unspecified seasonality] Chronic Other upper respiratory disease (9 sources) Seasonal allergy; Translations: [Other seasonal allergic rhinitis] Chronic Other upper respiratory disease (20 sources) Allergic rhinitis; Translations: [Allergic rhinitis, mild] 05-21-2022 Chronic Other upper respiratory infections (5 sources) Acute upper respiratory infection; Translations: [Acute upper respiratory infection, unspecified] 03-24-2022 Episodic Residual codes; unclassified (20 sources) Family history of cancer of colon; Translations: [Family history of colon cancer] 06-19-2022 Episodic Residual codes; unclassified (20 sources) Family history of malignant neoplasm of skin; Translations: [Family history of skin cancer] 06-19-2022 Episodic Residual codes; unclassified (20 sources) Non-smoker; Translations: [Non-smoker] 06-19-2022 Episodic Residual codes; unclassified (20 sources) Body mass index 20-24 - normal; Translations: [BMI 24.0-24.9, adult] Resolved: 12-18-2022 09-16-2022 Episodic Residual codes; unclassified (1 source) Immunization due; Translations: [Immunization due] Spondylosis; intervertebral disc disorders; other back problems (8 sources) Backache; Translations: [Muscle spasm of thoracic back] Onset: 11-17-2023 12-22-2022 Episodic Comment on above: think spasm use glass xicam if not better let me know Unclassified (4 sources) Patient encounter status; Translations: [Routine general medical examination at a health care facility] Unclassified (20 sources) Unclassified (20 sources) [facility] WELLNESS EXAM 09-16-2022 Unclassified (1 source) Low back pain, unspecified; Translations: [Low back pain, unspecified] Onset: 09-28-2023 Past or Other Problems Problem Classification Problem Date Documented Da te Episodic/Chronic Nonspecific chest pain (1 source) Chest pain, unspecified; Translations: [Chest pain, unspecified] Onset: 07-22-2023 Episodic Other and unspecified benign neoplasm (1 source) Melanocytic nevus of skin ; Translations: [Numerous moles] Episodic Other skin disorders (19 sources) Acne; Translations: [Acne, unspecified] Onset: 05-20-2015 05-20-2015 Episodic Residual codes; unclassified (1 source) Requires varicella vaccination; Translations: [Need for shingles vaccine] Episodic Syncope (20 sources) Syncope; Translations: [Syncope and collapse] Onset: 02-16-2023 Episodic Comment on above: think vasovagal fini sh workup and vertigo- doing b juan Results Test Name Value Interpretation Reference Range Facility PT D/C Summary (1)on 024 PT D/C Summary (1) [facility] [address] [place] [address] [address] [place] [address] / REHABILITATION SERVICES DISCHARGE SUMMARY MR#: [id number] Acct: [id number] Name: NORRIS JONES Rep #: [id number] : 1970 53 From: Danny Webster PT, Cert. T, [facility] Referring DrPatrick: Dr. Nasra Rock DO Status: REG R CR Insurance: [employer]ANCE Discharge Summary D/C summary: It has been my pleasure to treat NORRIS JONES referred by Dr. Nasra Rock DO, with the diagnosis of LUMBAR RADICULOPATHY for a total of 7 visit(s). Discharge Date: Please see the following information for a summary of their discharge status. Subjective Subjective: Feeling better overall ,back to normal Pain Right Lower Extremity: Pain Intensity (Out of 10): 2 Overall Improvement % Improvement: 90 Objective Objective/Function: POSTURE: WFL PALAPTION: tender SI/LS NEURO:denies paresthesia/tingling ,reflexes L3-4,L4-5 ,L5-S1 2/3 GAIT: reciprocal pattern PROM: Hip WNL -flexion ,IR 40 degrees HAMSTRINGS: min tight LUMBAR ROM : flexion min loss ,extension severe loss ,side glides right mod/severe loss pain ,side glides left min loss Goals Goal 1:: Patient to be I with HEP for back Goal Progress: Goal Met Goal 2:: Patient to demonstrate 50% improvement with increase function and walking/standing Goal Progress: Goal Met Goal 3:: Patient to improve lumbar ROM for function of recovery with extension for walking and standing Goal Progress: Goal Met Goal 4:: Patient improve back oswestry score by 5 points to improve QOL amd function Goal Progress: Goal Met Goal 5:: Patient be able to stand/walk > 30 to with less leg pain Goal Progress: Goal Met Plan Plan: D/C D/C Information d/c sentence: If there are questions or concerns regarding this patient's physical therapy, please feel free to call me at [phone]. Thank you for the referral of this patient. Sincerely, Danny Webster PT, Cert MDT, OCS Balance/Gait/Functiona l tests Balance/Special Test Scores Oswestry Low Back Score: 3 Improvement % Improvement: 90 11/17/23 0932 CC: Dr. Nasra Rock DO QUINN Signed Normal [facility] Inital Evaluation (1) - PTon 10-12-2023 Inital Evaluation (1) - PT [facility] Physical Therapy [facility] [address] [place] [address]. [address] [place] [address] / REHABILITATION SERVICES INITIAL EVALUATION MR#: [id number] Acct: [id number] Name: NORRIS JONES Rep #: [id number] : 1970 53 From: Danny Webster PT, Cert. T, OCS Referring Dr.: Dr. Nasra Rock DO Status: REG R CR Insurance: [employer] SELF PAY INSURANCE Patient's Visit Information Visit Information Visit Information: NORRIS JONES is a 53 year old M referred to Physical Therapy by Dr. Nasra Rock DO with a diagnosis of LUMBAR RADICULOPATHY. Date of Evaluation: 10/12/23 Physical Therapist: Danny Webster, PT, Cert MDT, OCS Visit Plan Frequency: 2x /Week Duration: 4 Weeks Plan: PT INTERVENTIONS LUMBAR FLEXION ,DLS ,POSTURAL EX'S ,MODALITIES POSSIBLE LUMBAR TRACTION( LOSSING) Subjective Subjective: This 53 y/o male presents to physical therapy with lumbar radiculopathy .Patient developed leg symptoms coming back from trip from driving and flying. Patient symptoms located right lateral hip to groin and quad. Min back pain. Patient had x-rays -. Prescribed gabapentin and vicodin. Aggravating factors walking 5mins,standing , lifting careful . Alleviating factors sitting medication. Pain at night in thigh sleeps restful. Denies coughing/sneezing-. If sneezed hard would hurt. Bowel/bladder-. 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 Patient condition affects QOL and function and job demands. Patient goals to decrease pain.Need PT before any MRI. 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 Right Lower Extremity: Pain Intensity (Out of 10): 4 Pain Intensity Range: 10 Comment: [facility] Objective Objective: POSTURE: WFL PALAPTION: tender SI/LS NEURO:denies paresthesia/tingling ,reflexes L3-4,L4-5 ,L5-S1 2/3 GAIT: reciprocal pattern PROM: Hip WNL -flexion ,IR 40 degrees HAMSTRINGS: min tight LUMBAR ROM : flexion min loss ,extension severe loss ,side glides right mod/severe loss pain ,side glides left min loss Special Tests L/S Slump test left side: Negative L/S Slump test right side: Negative L/S Left Straight Leg Raise: Negative L/S Right Straight Leg Raise: Positive Lumbar Standing: Flexion - Mechanical Response: No effect Lumbar Standing: Flexion - Symptoms During Testing: Increases Lumbar Standing: Flexion - Symptoms After Testing: Worse Lumbar Standing: Extension - Mechanical Response: No effect Lumbar Standing: Extension - Symptoms During Testing: Increases Lumbar Standing: Extension - Symptoms After Testing: Worse Lumbar Standing: Right Side Glides - Mechanical Response: No effect Lumbar Standing: Right Side Ranger - Symptoms During Testing: Increases Lumbar Standing: Right Side Ranger - Symptoms After Testing: Worse Lumbar Standing: Left Side Ranger - Mechanical Response: No effect Lumbar Standing: Left Side Ranger - Symptoms During Testing: No effect Lumbar Standing: Left Side Ranger - Symptoms After Testing: No effect Lumbar Lying: Flexion - Mechanical Response: No effect Lumbar Lying: Flexion - Symptoms During Testing: Decreases Lumbar Lying: Flexion - Symptoms After Testing: Better Lumbar Lying: Extension - Mechanical Response: No effect Lumbar Lying: Extension - Symptoms During Testing: Increases Lumbar Lying: Extension - Symptoms After Testing: Worse R Hip Scour: Negative R Hip Quadrant - Intraarticular Pathology: Negative Balance/Special Test Scores Oswestry Low Back Score: 28 Goals Goal 1:: Patient to be I with HEP for back Goal Time Frame: 4-6 Weeks Goal 2:: Patient to demonstrate 50% improvement with increase function and walking/standing Goal Time Frame: 4-6 Weeks Goal 3:: Patient to improve lumbar ROM for function of recovery with extension for walking and standing Goal Time Frame: 4-6 Weeks Goal 4:: Patient improve back oswestry score by 5 points to improve QOL amd function Goal Time Frame: 4-6 Weeks Goal 5:: Patient be able to stand/walk > 30 to with less leg pain Goal Time Frame: 4-6 Weeks Rehabilitation Potential Physical Therapy Diagnosis: This patient has possible stenosis with pain worse with extension ,right side glide ,better with flexion ,sitting and worse with walking and standing thus will benefit from skilled PT Rehabilitation Potential: Good Anticipated Interventions Patient/Client Instruction: Educate patient on: Condition and Plan of Care For the Purpose of:: To decrease pain, To increase ROM, To improve muscle performance and motor function, To increase tolerance to activity/condition/pos ition, To improve ability of physical actions for home/community/work/le isure, To improve gait and locomotor functions, To improve health of tissue, To decrease soft tissue restriction, To increase flexibility/ROM, To reduce risk of recurrence and To prevent re-injury Therapeutic Exercise to Include: Strength tr (more content not included)... Normal [facility] L/S Spine Min 4 Viewson - L/S Spine Min 4 Views [facility]iology [address] [place] [address] L/S Spine Min 4 Views MR#: [id number] Acct: [id number] Name: NORRIS JONES Rep #: [id number] : 1970 M 53 From: Richard carroll MD PCP: Dr. Nasra Rock DO Status: DEP AMB Study: L/S Spine Min 4 Views Date of Exam: 09/28/23 Exam# [id number] Ordering Dr: Nasra Rock DO [id number] STUDY: X-RAY - LUMBAR SPINE REASON FOR EXAM: Male, 53 years old. Low back pain -- STAT TECHNIQUE: 5 view(s) of the lumbar spine were obtained including oblique views. COMPARISON: None FINDINGS: Normal lumbar lordosis. There is a minimal dextroscoliosis of the lumbar spine. There is a normal alignment of the vertebrae. Normal vertebral bodies and endplates. Normal disc space heights. Moderate amount of fecal material is seen in the colon. RAD/L/S Spine Min 4 Views IMPRESSION: Minimal degree of dextroconvex scoliosis. Electronically Signed: Richard Pickett MD at 14:17 EDT , CC: Dr. Nasra Rock DO Internal Security Manager: Signed Normal [facility] L501.4020on 07-16-2023 TROPONIN-I HS < 3 Low 3.0-78.0 [facility] Comment on above: Order Comment: 1 Result Comment: Caty reich Note: New Test Units and Gender Specific Reference Ranges. For more information see Policy Stat Procedure [place] High Sensitivity Troponin (TNIH) and attachments. Performed By: #### L 501.4020 #### [facility] [address] [place], [address] No Panel InformationOrdered By: Irma Gardner on 07-16-2023 Troponin I High Sensitivity < 3 pg/mL 3.0-78.0 [facility] Comment on above: Please Note: [place] t Units and Gender Specific Reference Ranges. For more information see Policy Stat Procedure [place] High Sensitivity Troponin (TNIH) and attachments. Coronary Angiography CTon Coronary Angiography CT [facility] Imaging Services [address] [place] [address] 02/08/23 1600 MR#: [id number] Acct: [id number] Name: NORRIS JONES Rep #: [id number] : 1970 52 From: Thad Zurita MD PCP: Dr. Nasra Rock, DO Status:REG I Y Location: CVS Calcium Scoring Date of Study:: 02/04/23 Indications Indications: Hyperlipidemia Coronary Calcium Scoring: High-resolution Computed Tomographic imaging of the chest was performed on [02/04/2023], with particular attention paid to the coronary arteries. Images from the examination were analyzed for the presence and extent of coronary artery calcification , using coronary calcium quantification software. The patient tolerated the procedure well and there were no complications. The results of the coronary calcification analysis are provided below. Findings Coronary Artery Left Main (LM): 24 Left Anterior Descending (LAD): 6 Left Circumflex (LCX): 0 Right Coronary Artery (RCA): 41 Total Agatston Score: 71 Percentile Rankinth to 75th percentile Calcium Scoring Interpretation: Different methods to categorize the overall amount of coronary plaque. Overall amount CAC SIS Visual of coronary plaque P1 Mild -100 <2 1-2 vessels with mild amount of plaque P2 Moderate 101-300 3-4 1-2 vessels with moderate amount, 3 vessels with mild amount of plaque P3 Severe 301-999 5-7 3 vessels with moderate amount, 1 vessel with severe amount of plaque P4 Extensive >1000 >8 2-3 vessels with severe amount of plaque Calcium Score: Mild: 1-2 vessels w/mild amount of plaque Conclusion: Mild atherosclerotic plaquing noted. 02/08/23 1602 Date Thad Morales Signature (if applicable): Date CC: Dr. Nasra Rock DO Signed Normal [facility] Carotid Duplex Ultrasoundon 02-04-2023 Carotid Duplex Ultrasound [facility] Cardiovascular Services [address] [place] [address] Carotid Duplex Ultrasound 02/04/23 0814 MR#: [id number] Acct: [id number] Name: NORRIS JONES Rep #: [id number] : 1970 52 From: Tirso Trinidad MD Attending Dr: Dr. Nasra Rock DO Status: REG CL I Ordering Dr: Nasra Rock DO Date: 02/04/23 Location: CVS Sex: M C Admitted: Reason For Study: syncope Rt. Velocities/BP Lt. Velocities/BP Prox CCA 143.0/29.8 cm/sec. Prox CCA 128.4/33.4 cm/sec. Mid CCA 132.1/35.3 cm/sec. Mid CCA 126.6/38.9 cm/sec. Dist CCA 103.5/32.3 cm/sec. Dist CCA 110.1/44.4 cm/sec. Prox ICA 75.3/15.1 cm/sec. Prox ICA 101.0/22.5 cm/sec. Mid ICA 82.6/31.1 cm/sec. Mid ICA 119.3/33.4 cm/sec. Dist ICA 88.8/39.7 cm/sec. Dist ICA 83.9/32.2 cm/sec. Rt. ICA/CCA = .7. Lt. ICA/CCA = .9. Prox ECA 92.5/18.8 cm/sec. Prox ECA 113.8/26.1 cm/sec. Rt. Vert. 56.9/18.8 cm/sec. Lt. Vert. 80.6/23.4 cm/sec. Right Extracranial There is intimal thickening but no significant atherosclerotic plaque noted in the right common carotid artery. There is intimal thickening but no significant atherosclerotic plaque noted in the right internal carotid artery. There is intimal thickening but no significant atherosclerotic plaque noted in the right external carotid artery. Antegrade flow is noted in the right vertebral artery. Left Extracranial There is intimal thickening but no significant atherosclerotic plaque noted in the left common carotid artery. There is intimal thickening but no significant atherosclerotic plaque noted in the left internal carotid artery. There is intimal thickening but no significant atherosclerotic plaque noted in the left external carotid artery. Antegrade flow is noted in the left vertebral artery. Procedure Carotid Duplex 68261. This is a Carotid Duplex examination using B-mode, color flow and specral Doppler. The exam was diagnostic. Exam performed in department. VL/Carotid Duplex Ultrasound Interpretation Summary Normal right extracranial internal carotid. Normal left extracranial internal carotid. Patent and antegrade vertebrals bilaterally. Ordering Physician: Nasra Rock Performed By: Gary Shaw Duke 02/04/23 1245 Date Tirso Trinidad MD CC: Dr. Nasra Rock, Date Dictated: 02/04/23 0814 Date Transcribed: 02/04/23 1245 Internal Security Manager: Signed Normal [facility] Limited Chest CT Cardiac Onl yon 02-04-[address] Cardiac Only [facility] Imaging Services [address] [place] [address] Cardiac Only MR#: [id number] Acct: [id number] Name: NORRIS JONES Rep #: [id number] : 1970 M 52 From: Richard carroll MD PCP: Dr. Nasra Rock DO Status: REG CLI Study: Limited Chest CT Cardiac Only Date of Exam: Exam# [id number] Ordering Dr: Nasra Rock DO [id number] STUDY: CT CHEST WITHOUT CONTRAST REASON FOR EXAM: Male, 52 years old. Hyperlipidemia, acquired. Cardiac over read examination. RADIATION DOSAGE (If Supplied By Facility): CTDIvol = ( 12.19 ) mGy, DLP = ( 268.17 ) mGycm TECHNIQUE: Transaxial imaging was performed without the administration of intravenous contrast material. Individualized dose optimization techniques were used for this CT. COMPARISON: Comparison is made with prior examination July 18, 2021. FINDINGS: CHEST The lungs are normal. There is no demonstrated pleural abnormality. There are calcifications of the coronary arteries. There are small lymph nodes within the mediastinum, which are normal in size and morphology most compatible with reactive lymph hyperplasia. Normal hilar regions. Normal unenhanced pulmonary arteries. Normal aorta arch and descending thoracic aorta. Normal osseous structures. There is a 2.2 cm cyst in the posterior aspect of the right lobe of the liver. CT/Limited Chest CT Cardiac Only IMPRESSION: Coronary calcification. Small cyst in the posterior right lobe of the liver. . Electronically Signed: Richard Pickett MD at 9:27 EST , CC: Dr. Nasra Rock DO Internal Security Manager: Signed Normal [facility] LIPID PANEL ([id number])Ordered B y: Director Instrumentation on 12-15-2022 Cholesterol [Mass/Vol] 180 mg/dL Normal 100-199 [facility] Work Phone: Comment on above: PATIENT WAS FASTINGP ERFORMED BY: MOSES [facility] Lhzkyz6326 [address] RoadDublin [place] [id number] Cholesterol in HDL [Mass/Vol] 52 mg/dL Normal [facility]; [facility] Work Phone: Comment on above: PATIENT WAS FASTINGP ERFORMED BY: MOSES [facility] Tfvzqs0454 [address] [place] [id number] Triglyceride [Mass/Vol] 80 mg/dL Normal 0-149 [facility]; [facility] Work Phone: Comment on above: PATIENT WAS FASTINGP ERFORMED BY: MOSES [facility] [id number] [address]Dublin [place] [id number] LIPID PANEL (78910) 15 mg/dL Normal 5-40 Compr [facility]; [facility] Work Phone: Comment on above: PATIENT WAS FASTINGP ERFORMED BY: MOSES [facility] Isnaey3416 [address]Dublin [place] [id number] LIPID PANEL (13433) 113 mg/dL Abnormal 0-99 Compr [facility]; [facility] Work Phone: Comment on above: PATIENT WAS FASTINGP ERFORMED BY: MOSES [facility] Rsrgpy5098 [address] [place] [id number] LIPID PANEL (27306) 2.2 {ratio} Normal 0.0-3.6 [facility]; [facility] Work Phone: Comment on above: LDL/HDL Ratio Men Wo men 1/2 Avg.Risk 1.0 1.5 Avg.Risk 3.6 3.2 2X Avg.Risk 6.2 5.0 3X Avg.Risk 8.0 6.1 PATIENT WAS FASTINGP ERFORMED BY: CB [facility] Kbeuwr5347 [address]Dublin [place] [id number] Vitamin D Hydroxy (90717)Ord ered By: Director Instrumentation on 12-15-2022 25-hydroxyvitamin D [Mass/Vol] 73.1 ng/mL Normal 30.0-100.0 [facility]; [facility] Work Phone: Comment on above: Vitamin D deficiency has been defined by the [place] of[place]icine and an Endocrine Society practice guideline as alevel of serum 25-OH vitamin D less than 20 ng/mL (1,2).The Endocrine Society went on to further define vitamin Dinsufficiency as a level between 21 and 29 ng/mL (2).1. IOM ([place] of [employer]). 2010. Dietary reference intakes for calcium and D. [place]: The National Academies Press.2. Vince MF, Kar MAY, Joe ASH, et al. Evaluation, treatment, and prevention of vitamin D deficiency: an Endocrine Society clinical practice guideline. JCEM. 2010; 96(7):1911-30. PATIENT WAS FASTINGP ERFORMED BY: CB [facility] Wvqdss4314 [address] [place] [id number] CBC W/AUTO DIFF WBC (65811)O rdered By: Director Instrumentation on 09-07-2022 Basophils (Bld) [#/Vol] 0.0 10*3/uL Normal 0.0-0.2 [facility]; [facility] Work Phone: Comment on above: PATIENT WAS FASTINGP ERFORMED BY: CB [facility] Dwsunj6749 [address] [place] [id number] Basophils/100 WBC (Bld) 1 % Normal [facility]; [facility] Work Phone: Comment on above: PATIENT WAS FASTINGP ERFORMED BY: CB [facility] Gmqsrh8[address] [place] [id number] Eosinophils (Bld) [#/Vol] 0.4 10*3/uL Normal 0.0-0.4 [facility]; [facility] Work Phone: Comment on above: PATIENT WAS FASTINGP ERFORMED BY: CB [facility] Pmvjxs2474 [address] [place] [id number] Eosinophils/100 WBC (Bld) 9 % Normal [facility]; [facility] Work Phone: Comment on above: PATIENT WAS FASTINGP ERFORMED BY: CB [facility] Otxame4732 [address] [place] [id number] Erythrocyte distribution width (RBC) [Ratio] 13.3 % Normal 11.6-15.4 [facility]; [facility] Work Phone: Comment on above: PATIENT WAS FASTINGP ERFORMED BY: MOSES George6[address] [place] [id number] Hematocrit (Bld) [Volume fraction] 45.5 % Normal 37.5-51.0 [facility]; [facility] Work Phone: Comment on above: PATIENT WAS FASTINGP ERFORMED BY: MOSES Lab[facility] AlAgwudg[address] [place] [id number] Hemoglobin (Bld) [Mass/Vol] 15.4 g/dL Normal 13.0-17.7 [facility]; [facility] Work Phone: Comment on above: PATIENT WAS FASTINGP ERFORMED BY: MOSES Chitra Allin6[address] RoadFirst[facility] [place] [place] [id number] Immature granulocytes (Bld) [#/Vol] 0.0 10*3/uL Normal 0.0-0.1 [facility]; [facility] Work Phone: Comment on above: PATIENT WAS FASTINGP ERFORMED BY: MOSES [facility] Dezxki6081 [address]Dublin [place] [id number] Immature granulocytes/100 WBC (Bld) 0 % Normal [facility]; [facility] Work Phone: Comment on above: PATIENT WAS FASTINGP ERFORMED BY: MOSES [facility] Vydifi[address] [facility]in [place] [id number] Lymphocytes (Bld) [#/Vol] 1.3 10*3/uL Normal 0.7-3.1 [facility]; [facility] Work Phone: Comment on above: PATIENT WAS FASTINGP ERFORMED BY: MOSES [facility] Kvbewq0435 [address]Dublin [place] [id number] Lymphocytes/100 WBC (Bld) 28 % Normal [facility]; [facility] Work Phone: Comment on above: PATIENT WAS FASTINGP ERFORMED BY: MOSES [facility] Pctkcj2549 [address]Dublin [place] [id number] MCH (RBC) [Entitic mass] 31.3 pg Normal 26.6-33.0 [facility]; [facility] Work Phone: Comment on above: PATIENT WAS FASTINGP ERFORMED BY: MOSES Labcojuanito GeorgeZtekun7591 [address] RoadDublin [place] [id number] MCHC (RBC) [Mass/Vol] 33.8 g/dL Normal 31.5-35.7 [facility] prehensive Internal Medicine; [facility] Work Phone: Comment on above: PATIENT WAS FASTINGP ERFORMED BY: MOSES [facility] Mdyiex6523 [address]Dublin [place] [id number] MCV (RBC) [Entitic vol] 93 fL Normal 79-97 [facility]; [facility] Work Phone: Comment on above: PATIENT WAS FASTINGP ERFORMED BY: MOSES Labmnjuanito AlLejqzw6[address] [place] [id number] Monocytes (Bld) [#/Vol] 0.5 10*3/uL Normal 0.1-0.9 [facility]; [facility] Work Phone: Comment on above: PATIENT WAS FASTINGP ERFORMED BY: MOSES Lab[facility]anito Twtxcm0417 [address] [place] [id number] Monocytes/100 WBC (Bld) 11 % Normal [facility]; [facility] Work Phone: Comment on above: PATIENT WAS FASTINGP ERFORMED BY: MOSES [facility] Smlfxw[address] [facility] CenterD[facility] [place] [id number] Neutrophils (Bld) [#/Vol] 2.4 10*3/uL Normal 1.4-7.0 [facility]; [facility] Work Phone: Comment on above: PATIENT WAS FASTINGP ERFORMED BY: [facility] Oxwirh9972 [address] [place] [id number] Neutrophils/100 WBC (Bld) 51 % Normal [facility]; [facility] Work Phone: Comment on above: PATIENT WAS FASTINGP ERFORMED BY: MOSES [facility] Rhfstr5082 [address] [place] [id number] Platelets (Bld) [#/Vol] 286 10*3/uL Normal 150-450 [facility]; [facility] Work Phone: Comment on above: PATIENT WAS FASTINGP ERFORMED BY: MOSES [facility] Cgbchu3899 [address] [place] [id number] RBC (Bld) [#/Vol] 4.92 10*6/uL Normal 4.14-5.80 [facility] Internal [facility]; [facility] Work Phone: Comment on above: PATIENT WAS FASTINGP ERFORMED BY: MOSES [facility] Ogtrgn8590 [address] [place] [id number] WBC (Bld) [#/Vol] 4.7 10*3/uL Normal 3.4-10.8 [facility]; [facility] Work Phone: Comment on above: PATIENT WAS FASTINGP ERFORMED BY: MOSES [facility] Vebbhn[address] [facility]in [place] [id number] METABOLIC PANEL, COMPREHENSI VE ([id number])Ordered By: Director Instrumentation on 09-07-2022 Albumin [Mass/Vol] 4.3 g/dL Normal 3.8-4.9 [facility]; [facility] Work Phone: Comment on above: PATIENT WAS FASTINGP ERFORMED BY: MOSES [facility] Yepuql[address] [facility]in [place] [id number] Albumin/Globulin [Mass ratio] 2.3 {ratio} Abnormal 1.2-2.2 [facility]; [facility] Work Phone: Comment on above: PATIENT WAS FASTINGP ERFORMED BY: [facility] Wlefxw[address] [facility] CenterD[facility] [place] [id number] ALP [Catalytic activity/Vol] 81 U/L Normal 44-121 [facility]; [facility] Work Phone: Comment on above: PATIENT WAS FASTINGP ERFORMED BY: [facility] Suzyhq7520 [address] [place] [id number] ALT [Catalytic activity/Vol] 24 U/L Normal 0-44 [facility]; [facility] Work Phone: Comment on above: PATIENT WAS FASTINGP ERFORMED BY: CB [facility] Hbkvwx2658 [address] [place] [id number] AST [Catalytic activity/Vol] 20 U/L Normal 0-40 [facility]; [facility] Work Phone: Comment on above: PATIENT WAS FASTINGP ERFORMED BY: CB [facility] Tdqclm1094 [address] [place] [id number] Bilirubin [Mass/Vol] 0.5 mg/dL Normal 0.0-1.2 Comp rehens[facility]; [facility] Work Phone: Comment on above: PATIENT WAS FASTINGP ERFORMED BY: CB [facility] Hgakcz7980 [address] [place] [id number] Calcium [Mass/Vol] 9.1 mg/dL Normal 8.7-10.2 [facility]; [facility] Work Phone: Comment on above: PATIENT WAS FASTINGP ERFORMED BY: [facility] Netmec09[address] [place] [id number] Chloride [Moles/Vol] 102 mmol/L Normal 96-106 Comp rehens[facility]; [facility] Work Phone: Comment on above: PATIENT WAS FASTINGP ERFORMED BY: [facility] Zflomn9802 [address] [place] [id number] CO2 [Moles/Vol] 26 mmol/L Normal 20-29 [facility]; [facility] Work Phone: Comment on above: PATIENT WAS FASTINGP ERFORMED BY: CB [facility] Xknlpm8257 [address] [place] [id number] Creatinine [Mass/Vol] 0.82 mg/dL Normal 0.76-1.27 [facility] Work Phone: Comment on above: PATIENT WAS FASTINGP ERFORMED BY: CB [facility] [id number] RoadDublin [place] [id number] GFR/1.73 sq M.predicted among non-blacks MDRD (S/P/Bld) [Vol rate/Area] 105 mL/min/{1.73_m2} Normal Comprehensi ve Internal Medicine; [facility] Work Phone: Comment on above: PATIENT WAS FASTINGP ERFORMED BY: [facility] [id number] RoadDublin [place] [id number] Globulin (S) [Mass/Vol] 1.9 g/dL Normal 1.5-4.5 [facility]; [facility] Work Phone: Comment on above: PATIENT WAS FASTINGP ERFORMED BY: [facility]ES [facility] [id number] RoadDublin [place] [id number] Glucose [Mass/Vol] 92 mg/dL Normal 70-99 [facility] Internal [facility]; [facility] Work Phone: Comment on above: PATIENT WAS FASTINGP ERFORMED BY: MOSES [facility] [id number] [address] RoadDuin [place] [id number] Potassium [Moles/Vol] 4.6 mmol/L Normal 3.5-5.2 [facility] prehensive Internal Medicine; [facility] Work Phone: Comment on above: PATIENT WAS FASTINGP ERFORMED BY: MOSES [facility] [id number] [address] Roadblin [place] [id number] Protein [Mass/Vol] 6.2 g/dL Normal 6.0-8.5 [facility] Internal [facility]; [facility] Work Phone: Comment on above: PATIENT WAS FASTINGP ERFORMED BY: [facility] [id number] RoadDublin [place] [id number] Sodium [Moles/Vol] 141 mmol/L Normal 134-144 [facility] Internal Medicine; [facility] Work Phone: Comment on above: PATIENT WAS FASTINGP ERFORMED BY: [facility] [id number] [address] RoadDublin [place] [id number] Urea nitrogen [Mass/Vol] 12 mg/dL Normal 6-24 [facility]; [facility] Work Phone: Comment on above: PATIENT WAS FASTINGP ERFORMED BY: [facility]Mer[facility] [id number] [facility] [id number] Urea nitrogen/Creatinine [Mass ratio] 15 mg/mg Normal 9-20 [facility]; [facility] Work Phone: Comment on above: PATIENT WAS FASTINGP ERFORMED BY: Tiller [id number] [facility] [id number] PSA (PROSTATE SPECIFIC ANTIG EN) (V76.44)Ordered By: Director Instrumentation on 09-07-2022 Prostate specific Ag [Mass/Vol] 1.4 ng/mL Normal 0.0-4.0 [facility]; [facility] Work Phone: Comment on above: [employer] ECLIA methodol ogy. .According to the [employer], Serum PSA shoulddecrease and remain at undetectable levels after radicalprostatectomy. The AUA defines biochemical recurrence as an initialPSA value 0.2 ng/mL or greater followed by a subsequent confirmatoryPSA value 0.2 ng/mL or greater.Values obtained with different assay methods or kits cannot be usedinterchangeably. Results cannot be interpreted as absolute evidenceof the presence or absence of malignant disease. PATIENT WAS FASTINGP ERFORMED BY: [place] [id number] [facility] [id number] Basophil percentageon 2021 Chloride [Moles/Vol] 110 mmol/L 98-107 [facility] Work Phone: Glucose [Mass/Vol] 117 mg/dL 74-106 [facility] Work Phone: Comment on above: Fasting Glucose resu lt from 100 to 125 mg/dL suggests IMPAIRED HOMEOSTASIS per A.D.A. criteria. Potassium [Moles/Vol] 3.5 mmol/L 3.5-5.1 [facility] Work Phone: Sodium [Moles/Vol] 139 mmol/L 136-145 [facility] Work Phone: Laboratory - Chemistry and C hemistry - challengeon 07-20-2021 CO2 [Moles/Vol] 25.0 mmol/L 21.0-32.0 [facility] Work Phone: Urea nitrogen/Creatinine [Mass ratio] 16.5 mg/mg 10-20 [facility] Work Phone: No Panel Informationon 07-20 Estimated Creatinine Clearance Calc 105.82 ml/min [facility] Work Phone: Estimated GFR (MDRD) Amer 133 mL/min >60 [facility] Work Phone: Comment on above: GFR Calc Estimated GFR (MDRD) Non-Af Amer 110 mL/min >60 [facility] Work Phone: Comment on above: Non- GFR Calc Serum or plasma calcium dave urement (mass/volume)on 07-20-2021 Calcium [Mass/Vol] 8.0 mg/dL 8.5-10.1 [facility] Work Phone: Serum or plasma creatinine m easurement (mass/volume)on 07-20-2021 Creatinine [Mass/Vol] 0.79 mg/dL 0.70-1.30 [facility] Work Phone: Comment on above: The validity of the calculated GFR & GFRAA in patients over 70 years has not been determined. Clinical correlation is essential. Serum or plasma urea nitroge n measurement (mass/volume)on 07-20-2021 Urea nitrogen [Mass/Vol] 13 mg/dL 7-18 [facility] Work Phone: Thin prep Papanicolaou smear with manual screeningon 07-20-2021 Thin prep Papanicolaou smear with manual screening 4 5-15 [facility] Work Phone: Absolute lymphocyte counton 07-19-2021 Lymphocytes Auto (Unsp spec) [#/Vol] 0.91 10*3/uL 0.83-4.51 [facility] Work Phone: Basophil percentageon 2021 Basophils/100 WBC (Bld) 0.1 % 0-1 [facility] Work Phone: Eosinophils/100 WBC (Bld) 0.3 % 0-5 [facility] Work Phone: Neutrophils (Bld) [#/Vol] 10.6 10*3/uL 2.0-7.7 [facility] Work Phone: Neutrophils/100 WBC (Bld) 85.3 % 47-70 [facility] Work Phone: WBC (Bld) [#/Vol] 12.5 10*3/uL 4.4-11.0 [facility] Work Phone: Blood erythrocytes count (nu mber/volume)on 07-19-2021 RBC (Bld) [#/Vol] 4.94 10*6/uL 4.6-6.2 [facility] Work Phone: Blood hemoglobin measurement (mass/volume)on 07-19-2021 Hemoglobin (Bld) [Mass/Vol] 15.2 g/dL 13.0-16.5 [facility] Work Phone: Blood lymphocytes/100 leukoc yteson 07-19-2021 Lymphocytes/100 WBC (Bld) 7.3 % 19-41 [facility] Work Phone: Blood monocytes/100 leukocyt eson 07-19-2021 Monocytes/100 WBC (Bld) 6.7 % 0-10 [facility] Work Phone: Blood platelet mean volumeon 07-19-2021 Platelet mean volume (Bld) [Entitic vol] 9.2 fL 6.2-12.0 [facility] Work Phone: Determination of erythrocyte mean corpuscular volume (MCV)on 07-19-2021 MCV (RBC) [Entitic vol] 91.9 fL 80-94 [facility] Work Phone: Hematocrit Auto (Bld) [Volum e fraction]on 07-19-2021 Hematocrit (Bld) [Volume fraction] 45.4 % 40-54 [facility] Work Phone: Laboratory - Chemistry and C hemistry - challengeon 07-19-2021 Magnesium [Mass/Vol] 1.9 mg/dL 1.6-2.6 [facility] Work Phone: Comment on above: Slight Hemolysis, Re sult may be falsely increased. Laboratory - Hematology and Cell countson 07-19-2021 Erythrocyte distribution width (RBC) [Entitic vol] 46.0 fL 35.1-43.9 [facility] Work Phone: Erythrocyte distribution width (RBC) [Ratio] 13.5 % 11.6-14.6 [facility] Work Phone: Immature granulocytes/100 WBC (Bld) 0.300 % 0.0-0.9 [facility] Work Phone: Comment on above: IG% - Immature Granu locytes (promyelocytes, myelocytes and metamyelocytes) > 1% indicates that a LEFT SHIFT is Present. MCH (RBC) [Entitic mass] 30.8 pg 27.0-32.0 [facility] Work Phone: Nucleated RBC/100 WBC (Bld) [Ratio] 0 % 0-5 [facility] Work Phone: MCHC Auto (RBC) [Mass/Vol]on 07-19-2021 MCHC (RBC) [Mass/Vol] 33.5 g/dL 32-36 [facility] Work Phone: No Panel Informationon 07-19 Respiratory Panel (PCR) [facility] Work Phone: Troponin I High Sensitivity < 3 pg/mL 3.0-78.0 [facility] Work Phone: Comment on above: Please Note: [place] Units and Gender Specific Reference Ranges. For more information see Policy Stat Procedure [place] High Sensitivity Troponin (TNIH) and attachments. Platelets bldon 07-19-2021 Platelets (Bld) [#/Vol] 324 10*3/uL 150-450 [facility] Work Phone: Absolute lymphocyte counton 07-18-2021 Lymphocytes Auto (Unsp spec) [#/Vol] 2.49 10*3/uL 0.83-4.51 [facility] Work Phone: Basophil percentageon 2021 Basophils/100 WBC (Bld) 0.1 % 0-1 [facility] Work Phone: Chloride [Moles/Vol] 104 mmol/L 98-107 [facility] Work Phone: Eosinophils/100 WBC (Bld) 1.4 % 0-5 [facility] Work Phone: Glucose [Mass/Vol] 124 mg/dL 74-106 [facility] Work Phone: Comment on above: Fasting Glucose resu lt from 100 to 125 mg/dL suggests IMPAIRED HOMEOSTASIS per A.D.A. criteria. Neutrophils (Bld) [#/Vol] 5.2 10*3/uL 2.0-7.7 [facility] Work Phone: Neutrophils/100 WBC (Bld) 60.1 % 47-70 [facility] Work Phone: Potassium [Moles/Vol] 3.4 mmol/L 3.5-5.1 [facility] Work Phone: Sodium [Moles/Vol] 138 mmol/L 136-145 [facility] Work Phone: WBC (Bld) [#/Vol] 8.6 10*3/uL 4.4-11.0 [facility] Work Phone: Blood erythrocytes count (nu mber/volume)on 07-18-2021 RBC (Bld) [#/Vol] 4.90 10*6/uL 4.6-6.2 [facility] Work Phone: Blood hemoglobin measurement (mass/volume)on 07-18-2021 Hemoglobin (Bld) [Mass/Vol] 15.1 g/dL 13.0-16.5 [facility] Work Phone: Blood lymphocytes/100 leukoc yteson 07-18-2021 Lymphocytes/100 WBC (Bld) 29.1 % 19-41 [facility] Work Phone: Blood monocytes/100 leukocyt eson 07-18-2021 Monocytes/100 WBC (Bld) 9.1 % 0-10 [facility] Work Phone: Blood platelet mean volumeon 07-18-2021 Platelet mean volume (Bld) [Entitic vol] 9.3 fL 6.2-12.0 [facility] Work Phone: Determination of erythrocyte mean corpuscular volume (MCV)on 07-18-2021 MCV (RBC) [Entitic vol] 91.4 fL 80-94 [facility] Work Phone: Hematocrit Auto (Bld) [Volum e fraction]on 07-18-2021 Hematocrit (Bld) [Volume fraction] 44.8 % 40-54 [facility] Work Phone: Laboratory - Chemistry and C hemistry - challengeon 07-18-2021 CO2 [Moles/Vol] 31.0 mmol/L 21.0-32.0 [facility] Work Phone: Urea nitrogen/Creatinine [Mass ratio] 15.9 mg/mg 10-20 [facility] Work Phone: Laboratory - Hematology and Cell countson 07-18-2021 Erythrocyte distribution width (RBC) [Entitic vol] 44.9 fL 35.1-43.9 [facility] Work Phone: Erythrocyte distribution width (RBC) [Ratio] 13.4 % 11.6-14.6 [facility] Work Phone: Immature granulocytes/100 WBC (Bld) 0.200 % 0.0-0.9 [facility] Work Phone: Comment on above: IG% - Immature Granu locytes (promyelocytes, myelocytes and metamyelocytes) > 1% indicates that a LEFT SHIFT is Present. MCH (RBC) [Entitic mass] 30.8 pg 27.0-32.0 [facility] Work Phone: Nucleated RBC/100 WBC (Bld) [Ratio] 0 % 0-5 [facility] Work Phone: MCHC Auto (RBC) [Mass/Vol]on 07-18-2021 MCHC (RBC) [Mass/Vol] 33.7 g/dL 32-36 [facility] Work Phone: No Panel Informationon 07-18 Troponin I High Sensitivity < 3 pg/mL 3.0-78.0 [facility] Work Phone: Comment on above: Please Note: [place] Units and Gender Specific Reference Ranges. For more information see Policy Stat Procedure [place] High Sensitivity Troponin (TNIH) and attachments. D-Dimer Quantitative (PE/DVT) 2.33 FEU/ug/m 0.27-0.49 [facility] Work Phone: Comment on above: D-Dimer ELEVATED (>0 .49): Additional studies and clinicalassessments are indicated to conclude diagnosis of:Deep Vein Thrombosis (DVT) or Pulmonary Embolism (PE)CRITICAL VALUE VERIFIED. CALLED TO [id number] Eulalia Treadwell.RESULTS READ BACK BY SAME . Estimated Creatinine Clearance Calc 95.00 ml/min [facility] Work Phone: Estimated GFR (MDRD) Amer 117 mL/min >60 [facility] Work Phone: Comment on above: GFR Calc Estimated GFR (MDRD) Non-Af Amer 97 mL/min >60 [facility] Work Phone: Comment on above: Non- GFR Calc Platelets bldon 07-18-2021 Platelets (Bld) [#/Vol] 327 10*3/uL 150-450 [facility] Work Phone: Serum or plasma calcium dave urement (mass/volume)on 07-18-2021 Calcium [Mass/Vol] 8.8 mg/dL 8.5-10.1 [facility] Work Phone: Serum or plasma creatinine m easurement (mass/volume)on 07-18-2021 Creatinine [Mass/Vol] 0.88 mg/dL 0.70-1.30 [facility] Work Phone: Comment on above: The validity of the calculated GFR & GFRAA in patients over 70 years has not been determined. Clinical correlation is essential. Serum or plasma urea nitroge n measurement (mass/volume)on 07-18-2021 Urea nitrogen [Mass/Vol] 14 mg/dL 7-18 [facility] Work Phone: Thin prep Papanicolaou smear with manual screeningon 07-18-2021 Thin prep Papanicolaou smear with manual screening 3 5-15 [facility] Work Phone: CBCon 02-28-2019 Erythrocyte distribution width (RBC) [Entitic vol] 13.1 % 11.6 - 14.8 % [facility] Hematocrit (Bld) [Volume fraction] 45.8 % 41 - 53 % [facility] Hemoglobin (Bld) [Mass/Vol] 15.3 g/dL 13.5 - 17.5 g/dL [facility] MCH (RBC) [Entitic mass] 31.2 pg 26 - 34 pg [facility] MCHC (RBC) [Mass/Vol] 33.4 g/dL 31 - 37 g/dL [facility] MCV (RBC) [Entitic vol] 93.5 fL 80 - 100 fL [facility] Nucleated RBC (Bld) [#/Vol] 0.00 10*3/uL [facility] Nucleated RBC/100 WBC (Bld) [Ratio] 0.0 % [facility] Platelet mean volume (Bld) [Entitic vol] 9.6 fL 9 - 15.5 fL [facility] Platelets (Bld) [#/Vol] 315 10*3/uL [facility] RBC (Bld) [#/Vol] 4.90 10*6/uL [facility] WBC (Bld) [#/Vol] 6.16 10*3/uL [facility] Vital Signs Date Time Vital Sign Value Performing Clinician Facility 12-18-2022 11:08-0400 Body height 172.72 cm Saray Liang LPN [facility]; [facility] Work Phone: 12-18-2022 11:08-0400 Body mass index (BMI) [Ratio] 23.59 kg/m2 Saray Liang LPN [facility]; [facility] Work Phone: 12-18-2022 11:08-0400 Body surface area Derived from formula 1.83 m2 Saray Liang LPN [facility]; [facility] Work Phone: 12-18-2022 11:08-0400 Body temperature 97.4 [degF] Saray Liang NETWORK [employer]PERATIONS PROJECT MANAGER [facility]; [facility] Work Phone: Comment on above: Method: Temporal 12-18-2022 11:08-0400 Body weight 70.36 kg Saray Liang LPN [facility]; [facility] Work Phone: 12-18-2022 11:08-0400 Diastolic blood pressure 72 mm[Hg] Saray Purcellrb [employer]WORK OPERATIONS PROJECT MANAGER [facility]; [facility] Work Phone: Comment on above: Patient Position: Sitting; Cuff Location : Left Arm; Cuff Size: Standard 12-18-2022 11:08-0400 Heart rate 66 /min Saray Liang LPN [facility]; [facility] Work Phone: Comment on above: Pattern: Regular 12-18-2022 11:08-0400 Respiratory rate 16 /min Saray Liang LPN [facility]; [facility] Work Phone: Comment on above: Pattern: Unlabored 12-18-2022 11:08-0400 SaO2% (BldA) [Mass fraction] 99 % Saray Linag LPN [facility]; [facility] Work Phone: Comment on above: Room air 12-18-2022 11:08-0400 Systolic blood pressure 114 mm[Hg] Saray Liang LPN [facility]; [facility] Work Phone: Comment on above: Patient Position: Sitting; Cuff Location : Left Arm; Cuff Size: Standard 11-11-2022 14:05-0400 Body height 172.72 cm Halle Manzano SEEMA [facility]; [facility] Work Phone: 11-11-2022 14:05-0400 Body mass index (BMI) [Ratio] 24.04 kg/m2 Hallejoaquim Manzano SEEMA [facility]; [facility] Work Phone: 11-11-2022 14:05-0400 Body surface area Derived from formula 1.85 m2 Halle Manzano LPN [facility]; [facility] Work Phone: 11-11-2022 14:05-0400 Body temperature 98.3 [degF] Halle Manzano LPN [facility]; [facility] Work Phone: 11-11-2022 14:05-0400 Body weight 71.73 kg Halle Manzano LPN [facility]; [facility] Work Phone: 11-11-2022 14:05-0400 Diastolic blood pressure 68 mm[Hg] Halle Manzano LPN [facility]; [facility] Work Phone: Comment on above: Patient Position: Sitting; Cuff Location : Left Arm; Cuff Size: Standard 11-11-2022 14:05-0400 Heart rate 79 /min Halle Manzano LPN [facility]; [facility] Work Phone: Comment on above: Pattern: Regular 11-11-2022 14:05-0400 Respiratory rate 16 /min Halle Manzano LPN [facility]; [facility] Work Phone: Comment on above: Pattern: Unlabored 11-11-2022 14:05-0400 SaO2% (BldA) [Mass fraction] 99 % Halle Manzano LPN [facility]; [facility] Work Phone: Comment on above: Room air 11-11-2022 14:05-0400 Systolic blood pressure 102 mm[Hg] Halle Manzano LPN [facility]; [facility] Work Phone: Comment on above: Patient Position: Sitting; Cuff Location : Left Arm; Cuff Size: Standard 09-16-2022 08:03-0400 Body height 172.72 cm [facility]; [facility] Work Phone: 09-16-2022 08:03-0400 Body mass index (BMI) [Ratio] 24.95 kg/m2 [facility]; [facility] Work Phone: 09-16-2022 08:03-0400 Body surface area Derived from formula 1.88 m2 Libby Marion [employer]WING MACHINE [employer]PERATOR [employer] [facility]; [facility] Work Phone: 09-16-2022 08:03-0400 Body temperature 97.8 [degF] Libby Marion CMA [facility]; [facility] Work Phone: Comment on above: Method: Thermal Scan 09-16-2022 08:03-0400 Body weight 74.45 kg Libby Marion [facility]; [facility] Work Phone: 09-16-2022 08:03-0400 Diastolic blood pressure 64 mm[Hg] Libby Marion [facility]; [facility] Work Phone: Comment on above: Patient Position: Sitting; Cuff Location : Left Arm; Cuff Size: Standard 09-16-2022 08:03-0400 Heart rate 69 /min Libby Marion [facility]; [facility] Work Phone: Comment on above: Pattern: Regular 09-16-2022 08:03-0400 Respiratory rate 16 /min Libby Marion [facility]; [facility] Work Phone: Comment on above: Pattern: Unlabored 09-16-2022 08:03-0400 Systolic blood pressure 100 mm[Hg] Libby Marion [facility]; [facility] Work Phone: Comment on above: Patient Position: Sitting; Cuff Location : Left Arm; Cuff Size: Standard 09-07-2022 10:35-0400 Body height 172.72 cm [facility] 09-07-2022 10:35-0400 Body mass index (BMI) [Ratio] 24.3 kg/m2 [facility] 09-07-2022 10:35-0400 Body weight 72.57 kg [facility] 07-29-2022 08:09-0400 Body height 172.72 cm Libby Marion [facility]; [facility] Work Phone: 07-29-2022 08:09-0400 Body mass index (BMI) [Ratio] 25.41 kg/m2 Libby Marion [facility]; [facility] Work Phone: 07-29-2022 08:09-0400 Body surface area Derived from formula 1.89 m2 Libby Marion [facility]; [facility] Work Phone: 07-29-2022 08:09-0400 Body temperature 97.2 [degF] Libby Marion [facility]; [facility] Work Phone: Comment on above: Method: Thermal Scan 07-29-2022 08:09-0400 Body weight 75.81 kg Libby Marion [facility]; [facility] Work Phone: 07-29-2022 08:09-0400 Diastolic blood pressure 70 mm[Hg] Libby Marion [facility]; [facility] Work Phone: Comment on above: Patient Position: Sitting; Cuff Location : Left Arm; Cuff Size: Standard 07-29-2022 08:09-0400 Heart rate 78 /min Libby Marion [facility]; [facility] Work Phone: Comment on above: Pattern: Regular 07-29-2022 08:09-0400 Respiratory rate 16 /min Libby Marion [facility]; [facility] Work Phone: Comment on above: Pattern: Unlabored 07-29-2022 08:09-0400 SaO2% (BldA) [Mass fraction] 99 % Libby Marion [facility]; [facility] Work Phone: Comment on above: Room air 07-29-2022 08:09-0400 Systolic blood pressure 110 mm[Hg] Libby Marion [facility]; [facility] Work Phone: Comment on above: Patient Position: Sitting; Cuff Location : Left Arm; Cuff Size: Standard 07-14-2022 11:42-0400 Body height [facility].72 [facility]; [facility] Work Phone: 07-14-2022 11:42-0400 Body mass index (BMI) [Ratio] 25.41 kg/m2 [facility]; [facility] Work Phone: 07-14-2022 11:42-0400 Body surface area Derived from formula 1.89 m2 [facility]; [facility] Work Phone: 07-14-2022 11:42-0400 Body temperature 96.9 [degF] [facility] Comprehensiv e Internal Medicine; [facility] Work Phone: 07-14-2022 11:42-0400 Body weight 75.81 kg [facility]; [facility] Work Phone: 07-14-2022 11:42-0400 Diastolic blood pressure 80 mm[Hg] [facility]; [facility] Work Phone: Comment on above: Patient Position: Sitting; Cuff Location : Left Arm; Cuff Size: Standard 07-14-2022 11:42-0400 Heart rate 77 /min [facility]; [facility] Work Phone: Comment on above: Pattern: Regular 07-14-2022 11:42-0400 Respiratory rate 16 /min [facility] Comprehensiv e Internal Medicine; [facility] Work Phone: Comment on above: Pattern: Unlabored 07-14-2022 11:42-0400 SaO2% (BldA) [Mass fraction] 99 % [facility]; [facility] Work Phone: Comment on above: Room air 07-14-2022 11:42-0400 Systolic blood pressure 130 mm[Hg] [facility]; [facility] Work Phone: Comment on above: Patient Position: Sitting; Cuff Location : Left Arm; Cuff Size: Standard 06-19-2022 07:13-0400 Body height [facility].72 [facility] Work Phone: 06-19-2022 07:0400 Body mass index (BMI) [Ratio] 25.41 kg/m2 [facility] [facility]; [facility] Work Phone: 06-19-2022 07:0400 Body surface area Derived from formula 1.89 m2 [facility]; [facility] Work Phone: 06-19-2022 07:040 Body temperature 97.4 [degF] [facility]; [facility] Work Phone: 06-19-2022 07:0400 Body weight 75.81 kg [facility] Work Phone: 06-19-2022 07:130400 Diastolic blood pressure 70 mm[Hg] [facility]; [facility] Work Phone: Comment on above: Patient Position: Sitting; Cuff Location : Left Arm; Cuff Size: Standard 06-19-2022 07:13-0400 Heart rate 67 /min [facility]; [facility] Work Phone: Comment on above: Pattern: Regular 06-19-2022 07:13-0400 Respiratory rate 16 /min [facility]; [facility] Work Phone: Comment on above: Pattern: Unlabored 06-19-2022 07:13-0400 SaO2% (BldA) [Mass fraction] 98 % [facility]; [facility] Work Phone: Comment on above: Room air 06-19-2022 07:13-0400 Systolic blood pressure 120 mm[Hg] [facility]; [facility] Work Phone: Comment on above: Patient Position: Sitting; Cuff Location : Left Arm; Cuff Size: Standard 05-21-2022 07:17-0500 Body height 172.72 cm Halle Manzano [facility]; [facility] Work Phone: 05-21-2022 07:17-0500 Body mass index (BMI) [Ratio] 24.33 kg/m2 Halle Manzano [facility]; [facility] Work Phone: 05-21-2022 07:17-0500 Body surface area Derived from formula 1.86 m2 Halle Manzano [facility]; [facility] Work Phone: 05-21-2022 07:17-0500 Body temperature 98.1 [degF] Halle Manzano [facility]; [facility] Work Phone: 05-21-2022 07:17-0500 Body weight 72.58 kg Halle Manzano [facility]; [facility] Work Phone: 05-21-2022 07:17-0500 Diastolic blood pressure 74 mm[Hg] Halle Manzano [facility]; [facility] Work Phone: Comment on above: Patient Position: Sitting; Cuff Location : Left Arm; Cuff Size: Standard 05-21-2022 07:17-0500 Heart rate 79 /min Halle Manzano [facility]; [facility] Work Phone: Comment on above: Pattern: Regular 05-21-2022 07:17-0500 Respiratory rate 16 /min Halle Manzano [facility]; [facility] Work Phone: Comment on above: Pattern: Unlabored 05-21-2022 07:17-0500 SaO2% (BldA) [Mass fraction] 97 % Hallejoaquim Manzano [facility]; [facility] Work Phone: Comment on above: Room air 05-21-2022 07:17-0500 Systolic blood pressure 118 mm[Hg] Hallejoaquim Manzano [facility]; [facility] Work Phone: Comment on above: Patient Position: Sitting; Cuff Location : Left Arm; Cuff Size: Standard 07-20-2021 11:30-0400 Heart rate 86 /min Dr. Lonny Strickland Work Phone: [facility] Work Phone: 07-20-2021 10:09-0400 SaO2% (BldA) [Mass fraction] 97 % Dr. Lonny Strickland Work Phone: [facility] Work Phone: 07-20-2021 08:55-0400 Body temperature 98.3 [degF] Dr. Lonny Strickland Work Phone: [facility] Work Phone: 07-20-2021 08:55-0400 Diastolic blood pressure 66 mm[Hg] Dr. Lonny Strickland Work Phone: [facility] Work Phone: 07-20-2021 08:55-0400 Respiratory rate 18 /min Dr. Lonny Strickland Work Phone: [facility] Work Phone: 07-20-2021 08:55-0400 Systolic blood pressure 107 mm[Hg] Dr. Lonny Strickland Work Phone: [facility] Work Phone: 07-19-2021 02:25-0400 Body height 172.[address] Lonny Strickland Work Phone: [facility] Work Phone: 07-19-2021 02:25-0400 Body mass index (BMI) [Ratio] 23.4 kg/m2 Dr. Lonny Strickland Work Phone: [facility] Work Phone: 07-19-2021 02:25-0400 Body weight [address] Lonny Strickland Work Phone: [facility] Work Phone: 07-19-2021 01:38-0400 Body temperature 97.9 [degF] [facility] Work Phone: 07-19-2021 01:38-0400 Diastolic blood pressure 63 mm[Hg] [facility] Work Phone: 07-19-2021 01:38-0400 Heart rate 69 /min [facility] Work Phone: 07-19-2021 01:38-0400 Respiratory rate 14 /min [facility] Work Phone: 07-19-2021 01:38-0400 SaO2% (BldA) [Mass fraction] 100 % [facility] Work Phone: 07-19-2021 01:38-0400 Systolic blood pressure 110 mm[Hg] [facility] Work Phone: 07-18-2021 21:27-0400 Body height 172.72 cm [facility] Work Phone: 07-18-2021 21:27-0400 Body mass index (BMI) [Ratio] 24.5 kg/m2 [facility] Work Phone: 07-18-2021 21:27-0400 Body temperature 97.4 [degF] [facility] Work Phone: 07-18-2021 21:27-0400 Body weight 73 kg [facility] Work Phone: 07-18-2021 21:27-0400 Diastolic blood pressure 69 mm[Hg] [facility] Work Phone: 07-18-2021 21:27-0400 Heart rate 73 /min [facility] Work Phone: 07-18-2021 21:27-0400 Respiratory rate 15 /min [facility] Work Phone: 07-18-2021 21:27-0400 SaO2% (BldA) [Mass fraction] 100 % [facility] Work Phone: 07-18-2021 21:27-0400 Systolic blood pressure 113 mm[Hg] [facility] Work Phone: 07-18-2021 10:10-0400 Body mass index (BMI) [Ratio] 24.02 kg/m2 Amaya Tomas DO Work Phone: [facility] 07-18-2021 10:10-0400 Body weight 71.67 kg Amaya Tomas DO Work Phone: [facility] 07-18-2021 10:10-0400 Diastolic blood pressure 73 mm[Hg] Amaya Mcrae DO Work Phone: [facility] 07-18-2021 10:10-0400 Heart rate 72 /min Amaya Tomas DO Work Phone: [facility] 07-18-2021 10:10-0400 Respiratory rate 16 /min Amaya Mcrae DO Work Phone: [facility] 07-18-2021 10:10-0400 Systolic blood pressure 120 mm[Hg] Amaya Mcrae DO Work Phone: [facility] 09-12-2020 07:01-0400 Body height 172.7 cm Dima Scott DO Work Phone: [facility] 09-12-2020 07:01-0400 Body mass index (BMI) [Ratio] 24.02 kg/m2 Dima Scott DO Work Phone: [facility] 09-12-2020 07:01-0400 Body temperature 97.5 [degF] Dima Scott DO Work Phone: [facility] 09-12-2020 07:01-0400 Body weight 71.67 kg Dima Scott DO Work Phone: [facility] 09-12-2020 07:01-0400 Diastolic blood pressure 76 mm[Hg] Dima Scott DO Work Phone: [facility] 09-12-2020 07:01-0400 Heart rate 70 /min Dima Scott DO Work Phone: [facility] 09-12-2020 07:01-0400 Systolic blood pressure 119 mm[Hg] Dima Scott DO Work Phone: [facility] 08-15-2020 13:25-0400 Body height 172.7 cm Dima Scott DO Work Phone: [facility] 08-15-2020 13:25-0400 Body mass index (BMI) [Ratio] 23.72 kg/m2 Dima Scott DO Work Phone: [facility] 08-15-2020 13:25-0400 Body temperature 97.5 [degF] Dima Scott DO Work Phone: [facility] 08-15-2020 13:25-0400 Body weight 70.76 kg Dima Scott DO Work Phone: [facility] 08-15-2020 13:25-0400 Diastolic blood pressure 77 mm[Hg] Dima Scott DO Work Phone: [facility] 08-15-2020 13:25-0400 Heart rate 71 /min Dima Scott DO Work Phone: [facility] 08-15-2020 13:25-0400 Systolic blood pressure 118 mm[Hg] Dima Scott DO Work Phone: [facility] 09-21-2019 09:28-0400 BMI (Body Mass Index) 24.74 kg/m2 Dima Scott [facility] 09-21-2019 09:28-0400 Body Temperature 97.2 [degF] Dima Scott [facility] 09-21-2019 09:28-0400 Body weight 73.8 kg Dima Scott [facility] 09-21-2019 09:28-0400 BP Diastolic 76 mm[Hg] Dima Scott [facility] 09-21-2019 09:28-0400 BP Systolic 119 mm[Hg] Dima Scott [facility] 09-21-2019 09:28-0400 Height 172.7 cm Dima Scott [facility] 09-21-2019 09:28-0400 Pulse (Heart Rate) 73 /min Dima Scott [facility] 02-28-2019 07:17-0500 BMI (Body Mass Index) 23.57 kg/m2 Dima Scott [facility] 02-28-2019 07:17-0500 Body weight 70.31 kg [facility] 02-28-2019 07:17-0500 BP Diastolic 73 mm[Hg] Dima [facility] 02-28-2019 07:17-0500 BP Systolic 120 mm[Hg] Dima Tyler [facility] 02-28-2019 07:17-0500 Height 172.7 cm [facility] 02-28-2019 07:17-0500 Pulse (Heart Rate) 71 /min [facility] 02-28-2019 07:17-0500 Respiratory Rate 12 /min [facility] 01-12-2019 13:37-0400 BMI (Body Mass Index) 23.72 kg/m2 [facility] 01-12-2019 13:37-0400 Body weight 70.76 kg [facility] 01-12-2019 13:37-0400 BP Diastolic 77 mm[Hg] [facility] 01-12-2019 13:37-0400 BP Systolic 112 mm[Hg] [facility] 01-12-2019 13:37-0400 Height 172.7 cm [facility] 01-12-2019 13:37-0400 Pulse (Heart Rate) 85 /min [facility] 01-12-2019 13:37-0400 Respiratory Rate 16 /min [facility] 01-06-2019 15:16-0400 BMI (Body Mass Index) 24.18 kg/m2 [facility] 01-06-2019 15:16-0400 Body weight 72.12 kg [facility] 01-06-2019 15:16-0400 BP Diastolic 73 mm[Hg] [facility] 01-06-2019 15:16-0400 BP Systolic 120 mm[Hg] [facility] 01-06-2019 15:16-0400 Height 172.7 cm [facility] 01-06-2019 15:16-0400 Pulse (Heart Rate) 71 /min [facility] 01-06-2019 15:16-0400 Respiratory Rate 14 /min [facility] 07-07-2017 13:36-0400 BMI (Body Mass Index) 25.39 kg/m2 [facility] 07-07-2017 13:36-0400 BP Diastolic 76 mm[Hg] [facility] 07-07-2017 13:36-0400 BP Systolic 102 mm[Hg] Dima Scott [facility] 07-07-2017 13:36-0400 Height 172.7 cm Dima Scott [facility] 07-07-2017 13:36-0400 Pulse (Heart Rate) 76 /min Dima Scott [facility] 07-07-2017 13:36-0400 Respiratory Rate 16 /min Dima [facility] 07-07-2017 13:36-0400 Weight 75.75 kg Dima [facility] 01-28-2017 13:10-0500 BMI (Body Mass Index) 25.39 kg/m2 Dima Scott [facility] Work Phone: 01-28-2017 13:10-0500 Body Temperature 98.29 [degF] Dima Scott [facility] Work Phone: 01-28-2017 13:10-0500 BP Diastolic 78 mm[Hg] Dima Scott [facility] Work Phone: 01-28-2017 13:10-0500 BP Systolic 110 mm[Hg] [facility] Work Phone: 01-28-2017 13:10-0500 Height 172.7 cm Dima Scott [facility] Work Phone: 01-28-2017 13:10-0500 Pulse (Heart Rate) 76 /min Dima Scott [facility] Work Phone: 01-28-2017 13:10-0500 Respiratory Rate 18 /min Dima Scott [facility] Work Phone: 01-28-2017 13:10-0500 Weight 75.75 kg Dima [facility] Work Phone: Encounters Encounter Date Encounter Type Care Provider Facility Start: 11-17-2023 End: 11-17-2023 ambulatory Nasra Fast Facility:[facility] Start: 09-28-2023 End: 09-28-2023 ambulatory Nasra Fast Facility[facility] Start: 07-16-2023 End: 07-16-2023 ambulatory [facility] Work Phone: Start: 07-16-2023 End: 07-16-2023 Patient encounter procedure [facility]-Laboratory, Specimen Work Phone: Start: 07-16-2023 End: 07-16-2023 ambulatory Nasra Fast Facility:[facility] Start: 02-08-2023 ambulatory Nasra Fast Facility:[facility] Start: 02-08-2023 Non-patient / Non-visit Dr. Serna Fast Work Phone: [facility] Start: 02-04-2023 Non-patient / Non-visit Dr. Senra Fast Work Phone: [facility] Start: 02-04-2023 End: 02-04-[address] Nasra Rock Work Phone: [facility] Work Phone: Start: 02-04-2023 End: 02-04-[address] Nasra Rock Work Phone: [facility]Cardi[facility] Work Phone: Start: 02-04-2023 End: 02-04-2023 ambulatory Nasra Fast Facility:[facility] Start: 12-30-2022 Review Nasra Fast DO Work Phone: [facility] Start: 12-18-2022 End: 12-22-2022 Office outpatient visit 25 minutes Nasra Fast DO Work Phone: [facility] Start: 12-18-2022 Review Nasra Fast DO Work Phone: [facility] Start: 11-11-2022 End: 11-18-2022 Office outpatient visit 15 minutes Nasra Fast DO Work Phone: [facility] Start: 10-01-2022 End: 10-01-2022 ambulatory [facility] Work Phone: Start: 10-01-2022 End: 10-01-2022 Patient encounter procedure [facility], [facility] Work Phone: Start: 09-28-2022 End: 12-14-2022 Phone Encounter Nasra Fast DO Work Phone: [facility] Start: 09-28-2022 Review Nasra Fast DO Work Phone: [facility] Start: 09-16-2022 Review Nasra Fast DO Work Phone: [facility] Start: 09-16-2022 End: 09-22-2022 Patient encounter procedure Nasra Fast DO Work Phone: [facility] Start: 09-07-2022 Non-patient / Non-visit [facility] Work Phone: Start: 07-29-2022 End: 08-03-2022 Office outpatient visit 15 minutes Nasra Fast DO Work Phone: [facility] Start: 07-29-2022 Review Nasra Fast DO Work Phone: [facility] Start: 07-14-2022 End: 07-19-2022 Office outpatient visit 25 minutes Nasra Fast DO Work Phone: [facility] Start: 07-14-2022 Review Nasra Fast DO Work Phone: [facility] Start: 07-13-2022 ambulatory Nasra A Fast DO [facility] Start: 06-19-2022 Review Nasra Fast DO Work Phone: [facility] Start: 06-19-2022 End: 07-05-2022 Office outpatient new 45 minutes Nasra Fast DO Work Phone: [facility] Start: 05-21-2022 End: 05-21-2022 Office outpatient new 30 minutes Nasra Fast DO Work Phone: [facility] Start: 11-19-2021 Refill Dima Whiteside dge DO Work Phone: [facility] Comment on above: Erectile dysfunction , unspecified erectile dysfunction type Start: 07-25-2021 End: 07-25-[address] [facility] Start: 07-25-2021 End: 07-25-2021 Office outpatient visit 40 minutes Dima Scott DO Work Phone: [facility] Comment on above: Syncope, unspecified syncope type (Primary Dx); Rash Start: 07-20-2021 Non-patient / Non-visit Dr. Schroeder Work Phone: [facility] Start: 07-19-2021 Non-patient / Non-visit Dr. Schroeder Work Phone: [facility] Start: 07-19-2021 Non-patient / Non-visit Dr. Schroeder Work Phone: [facility] Start: 07-19-2021 End: 07-20-2021 Evaluation and management of inpatient [facility]-Progressive Care Unit Start: 07-18-2021 End: 07-19-2021 Emergency department patient visit [facility]Emergency Department Start: 07-18-2021 End: 07-18-[address] [facility] Start: 07-18-2021 End: 07-18-2021 Office outpatient visit 25 minutes Amaya Marin DO Work Phone: [facility] Comment on above: Dermatitis (Primary Dx); Rash and nonspecific skin eruption Start: 05-22-2021 Refill Dima hull DO Work Phone: [facility] Comment on above: Acne, unspecified ac ne type Start: 01-12-2021 Refill Dima Cosby Stevo dge DO Work Phone: [facility] Comment on above: Acne, unspecified ac ne type (Primary Dx) Start: 09-12-2020 End: 09-16-2020 ambulatory DIMA HARJEET TYLER [facility] Start: 09-12-2020 End: 09-12-[address] [facility] Start: 09-12-2020 End: 09-12-2020 Patient encounter status Dima Scott DO Work Phone: [facility] Start: 09-12-2020 End: 09-12-2020 Periodic preventive med est patient 40-64yrs Dima Scott DO Work Phone: [facility] Comment on above: Routine general medi radha examination at a health care facility (Primary Dx); Colon cancer screening; Prostate cancer screening; Impacted cerumen of left ear Start: 08-15-2020 End: 08-15-[address] [facility] Start: 08-15-2020 End: 08-15-2020 Office outpatient visit 15 minutes Dima Scott DO Work Phone: [facility] Comment on above: Left hip pain (Prima ry Dx); Trochanteric bursitis of left hip; Seasonal allergies Start: 06-12-2020 End: 06-12-2020 Refill Dima Scott Work Phone: [facility] Start: 06-05-2020 End: 06-05-2020 Orders Only Hannah Leiva Work Phone: [facility] Start: 11-11-2019 Refill Dima Perkinston Stevo dge DO Work Phone: [facility] Start: 09-21-2019 End: 09-21-2019 Office outpatient visit 15 minutes Dima Scott Work Phone: [facility] Comment on above: Acute pain of right knee (Primary Dx); Patellofemoral dysfunction of right knee Start: 08-17-2019 End: 08-17-2019 Clinical Support Sapna Rosas [facility] Comment on above: Immunization due (Pr imary Dx) Start: 02-28-2019 End: 02-28-2019 Periodic preventive med est patient 40-64yrs Dima Scott Work Phone: [facility] Comment on above: Routine general medi radha examination at a health care facility (Primary Dx); Colon cancer screening; Prostate cancer screening; Travel advice encounter; Numerous moles; Need for shingles vaccine Start: 01-12-2019 End: 01-12-2019 Office outpatient visit 25 minutes Dima Scott Work Phone: [facility] Comment on above: Right shoulder pain, unspecified chronicity (Primary Dx); Rotator cuff tendonitis, right; Mid back pain; URI, acute; Allergic rhinitis due to pollen, unspecified seasonality Start: 01-06-2019 End: 01-06-2019 Office outpatient visit 25 minutes Johnnymynor Feliz Work Phone: [facility] Comment on above: Spasm of thoracic ba ck muscle (Primary Dx); Mid back pain Start: 07-07-2017 End: 07-07-2017 Office/outpatient visit, [facility] level 4 Dima Scott Work Phone: [facility] Start: 01-28-2017 Office outpatient vi sit 15 minutes Dima Scott Work Phone: [facility] [employer] [facility] Procedures Date Procedure Procedure Detail Performing Clinician Start: 02-04-2023 CT angiography of coronary arteries Dr. Nasra Rock Work Phone: Start: 10-13-2022 End: 10-13-2022 Colonoscopy Report Procedure Note: See Note; NOTES: [facility] Medical Records Department [address] [place] [id number] Colonoscopy Report MR#: [id number] Acct: [id number] Name: NORRIS JONES Rep #: [id number] : 1970 52 From: Christopher Ferrari MD PCP: Dr. Nasra Rock, DO Status:[facility] Patient Name: Norris Jones Procedure Date: 10/13/2022 9:01 AM Date of : 1970 Age: 52 Procedure: Colonoscopy Indications: Screening for colorectal malignant neoplasm Providers: Christopher Ferrari MD Medicines: Monitored Anesthesia Care Patient Profile: This is a 52 year old male. Refer to note in patient chart for documentation of history and physical. Last Colonoscopy: none. The patient's first colonoscopy is today. Complications: No immediate complications. Procedure: Pre-Anesthesia Assessment: - Prior to the procedure, a History and Physical was performed, and patient medications and allergies were reviewed. The patient's tolerance of previous anesthesia was also reviewed. The risks and benefits of the procedure and the sedation options and risks were discussed with the patient. All questions were answered, and informed consent was obtained. Prior Anticoagulants: The patient has taken no previous anticoagulant or antiplatelet agents. After reviewing the risks and benefits, the patient was deemed in satisfactory condition to undergo the procedure. After I obtained informed consent, the scope was passed under direct vision. Throughout the procedure, the patient's blood pressure, pulse, and oxygen saturations were monitored continuously. The was introduced through the anus and advanced to the cecum, identified by appendiceal orifice and ileocecal valve. The colonoscopy was performed without difficulty. The patient tolerated the procedure well. The quality of the bowel preparation was good. Scope In: 9:05:26 AM Scope Withdrawal Time 0 hours 6 minutes 4 seconds Scope Out: 9:16:53 AM Total Procedure Duration Time 0 hours 11 minutes 27 seconds Findings: The entire examined colon appeared normal on direct and retroflexion views. Impression: - The entire examined colon is normal on direct and retroflexion views. - No specimens collected. Recommendation: - Discharge patient to home. - Resume previous diet. - Continue present medications. - Repeat colonoscopy in 10 years for screening purposes. Procedure Code(s): --- Professional --- 83305, Colonoscopy, flexible; diagnostic, including collection of specimen(s) by brushing or washing, when performed (separate procedure) Diagnosis Code(s): --- Professional --- Z12.11, Encounter for screening for malignant neoplasm of colon CPT copyright 2017 [employer]. All rights reserved. The codes documented in this report are preliminary and upon event security officer review may be revised to meet current compliance requirements. Christopher Ferrari MD 10/13/2022 9:20:54 AM This report has been signed electronically. Number of Addenda: 0 Note Initiated On: 10/13/2022 9:01 AM 10/13/2220 Date Christopher Ferrari MD Cosigner Signature: Date (if indicated) CC: Dr. Christopher Ferrari MD; Dr. Nasra Rock, DO Date Dictated: 10/13/22 0901 Date Transcribed: Internal Security Manager: REGINA Rock DO Work Phone: Start: 10-13-2022 End: 10-13-2022 History and Physical Exam Procedure Note: See Note; NOTES: [facility] Medical Records Department [address] [place] [address] History Physical Exam 10/13/22 0845 MR#: [id number] Acct: [id number] Name: NORRIS JONES Rep #: [id number] : 1970 52 From: Christopher Ferrari MD PCP: Dr. Nasra Rock, DO Status:[facility] Location: [place] [address] HPI - General HPI Narrative NORRIS JONES, is a 52 M who presents for screening colonoscopy. Patient denies any abdominal pain or blood in the stool. He has never had a colonoscopy in the past. He only reports family history of colon cancer in a grandparent. [facility] Medical History (Updated 10/08/22 @ 14:29 by Sarah Andersen) Adult acne Alcohol use Asthma Benign liver cyst GERD (gastroesophageal reflux disease) History of echocardiogram History of renal disease Loss of consciousness Migraine headache Non-smoker Wears contact lenses Wears glasses Home Medications diphenhydramine HCl 25 mg capsule (Banophen) 50 mg (2 x 25 mg) PO TID PRN PRN RASH/TOPICAL IRRITATION #0 caps 07/20/21 [Rx Last Taken Unknown] dapsone 5 % topical gel (Aczone) 1 applic topical BID 03/23/22 [History Last Taken Unknown] tadalafil 2.5 mg tablet (Cialis) 5 mg PO PRN ERECTILE DYSFUNCTION 03/23/22 [History Last Taken Unknown] albuterol sulfate 90 mcg/actuation breath activated powder inhaler (ProAir RespiClick) 1 inh inhalation PRN 10/08/22 [History Last Taken Unknown] famotidine 20 mg tablet 20 mg PO PRN INDIGESTION 10/08/22 [History Last Taken Unknown] meloxicam 15 mg tablet 15 mg PO PRN PAIN 10/08/22 [History Last Taken Unknown] Allergy/AdvReac Type Severity Reaction Status Date / Time doxycycline Allergy Intermediate Rash Verified 10/13/22 08:45 pseudoephedrine Allergy Intermediate Rash Verified 10/13/22 08:45 [From Sudafed] Family History (Updated 09/07/22 @ 10:36 by Antonette Palafox) Grandfather Colon cancer Other Cancer Heart disease Surgical History (Updated 10/08/22 @ 14:29 by Sarah Andersen) History of testicular surgery Hx of wisdom tooth extraction Social History (Updated 09/07/22 @ 10:31 by Antonette Palafox) household members: spouse current occupational status: employed current occupation: [employer] Smoking Status: Never smoker substance use type: does not use Past Medical/Surgical History Planned Operation Planned Operative Procedure/s: CSCOPE OA Previous Hospitalizations/Surgeries HX Hospitalizations: No Any Problems With Anesthesia: Yes (N,V) You/Your Family Experience Fever (Hyperthermia) With Anes: No Cholinesterase deficiency: No Cardiovascular Hx Hypertension: No Respiratory Hx Sleep Apnea: No Hx Respiratory Tract Infection/Cold (presently): No Do You Snore Loudly (louder than talking or can be heard): Yes Do You Often Feel Tired/ Fatigued/ Sleepy Dring Daytime?: No Has Anyone Observed You Stop Breathing During Sleep?: No Result (for STOP score): Negative Smoking Status: Never smoker Neurological Does patient have nerve stimulator: No Reproduction : No Allergies doxycycline Allergy (Intermediate, Verified 10/13/22 08:45) Rash pseudoephedrine [From Sudafed] Allergy (Intermediate, Verified 10/13/22 08:45) Rash Jumpy Discharge Is Pt Admitted From a Detention, or a Penitentiary: No After D/C, Where Do you Plan to Go: Return Home Physical Exam Const alert and oriented x3 HEENT normocephalic Eyes PERRL Resp normal respiratory effort and normal air movement Cardio regular rate and regular rhythm GI soft to palpation, non-tender and non-distended Extremity normal to inspection Assessment Plan Assessment/Plan (1) Encounter for screening for malignant neoplasm of colon: PLAN: I explained endoscopy in detail to the patient. I explained the risks including but not limited to stroke or heart attack with anesthesia, perforation of the GI tract, bleeding, infection. I explained that any of these could necessitate further emergency surgery. The patient understands and all questions were answered sufficiently. The patient wishes to proceed with procedure. Christopher Ferrari MD Pager: [facility] [address] [place] [address], [address] [place] [address] Office: Surgery Risks - Colonoscopy Risks Include but are not Limited To: Risks include but are not limited to: Bleeding, perforation requiring further surgery, inability to complete colonoscopy requiring barium enema. 10/13/22 0848 <Electronically signed by Christopher Ferrari MD> Cosigner Signature (if applicable): CC: Dr. Christopher Ferrari MD; Dr. Nasra Rock DO Signed Nasra Rock DO Work Phone: Start: 10-01-2022 Ultrasound elastography of liver Antonette Klondike Start: 10-01-2022 End: 10-01-2022 ABD Limited w/ Elastography Procedure Note: See Note; NOTES: [facility] Imaging Services [address] [place] [address] ABD Limited w/ Elastography MR#: [id number] Acct: [id number] Name: MARGARETNORRISGEN DUENAS Rep #: [id number] : 1970 M 52 From: Richard carroll MD PCP: Dr. Nasra Rock DO Status: REG CLI Study: ABD Limited w/ Elastography Date of Exam: 09/19 06/11 Exam# [id number] Ordering Dr: Nasra Rock DO STUDY: ABDOMINAL ULTRASOUND - RIGHT UPPER QUADRANT; ELASTOGRAPHY REASON FOR VISIT: Male, 52 years old. Liver cyst. TECHNIQUE: Ultrasound evaluation of the right upper quadrant was performed with real-time and static franco-scale imaging. Point quantification shear wave elastography was performed (Scientific Intake). TECHNICAL QUALITY: Adequate. COMPARISON: None. FINDINGS: Liver: The liver measures 14 cm. There is normal echogenicity of the liver. The bile ducts are within normal limits. There is hepatic color flow. The direction of portal flow is hepatopetal. There is a 2.5 cm x 2 cm x 2.3 cm cyst in the right lobe of the liver. Median liver stiffness measured 5 kPa. Gallbladder: Normal distended gallbladder. The gallbladder wall measures 3 mm. There is a negative sonographic Ramirez''s sign. There is no pericholecystic fluid. There are no gallstones. There are 2 small polyps adherent to the gallbladder wall. The larger palpable measures 6 mm x 7 mm x 9 mm. Common Bile Duct (C.B.D.): The common bile duct measures 4 mm. Pancreas: There is normal echogenicity of the visualized pancreas. There is no demonstrated pancreatic mass or cyst. Right Kidney: Normal size of the right kidney. The right kidney measures 11 cm x 5.5 cm x 5.6 cm. Normal renal cortex. The right cortex measures 2.0 cm. There is no demonstrated renal mass or cyst. There is no right hydronephrosis. US/ABD Limited w/ Elastography IMPRESSION: 1. Liver stiffness measures 5 kPa compatible with F0-F1 (Normal to mild liver fibrosis) Metavir score. Electronically Signed: Richard Pickett MD at 10:50 EDT , CC: Dr. Nasra Rock DO Internal Security Manager: Signed Nasra Rock DO Work Phone: Start: 05-21-2022 End: 05-21-2022 Ankle 2 Views Procedure Note: See Note; NOTES: [facility] [address] [place] [address] Ankle 2 Views MR#: [id number] Acct: [id number] Name: NORRIS JONES Rep #: [id number] : 1970 M 51 From: Augusto Olivares MD PCP: Status: DEP AMB Study: Ankle 2 Views Date of Exam: 05/21/22 Exam# [id number] Ordering Dr: Irma Gardner MD STUDY: X-RAY - RIGHT ANKLE REASON FOR EXAM: Male, 51 years old. Achilles tendinitis. Pain. TECHNIQUE: 2 view(s) of the ankle. COMPARISON: None. FINDINGS: Normal visualized distal tibia and fibula. Normal medial and lateral malleoli. Normal tibiotalar articulation and ankle mortise. Normal visualized talus and calcaneus. The visualized subtalar, talonavicular, calcaneocuboid and tarsal articulations are normal. Normal soft tissues. RAD/Ankle 2 Views IMPRESSION: No abnormality present. Electronically Signed: Augusto Olivares, at 9:46 EST , CC: Dr. Irma Gardner MD Internal Security Manager: Signed Irma Gardner MD Work Phone: Start: 07-19-2021 Respiratory Panel (PCR) Dr. Lonny lopes Work Phone: Start: 07-18-2021 CT angiography of chest with contrast Start: 07-18-2021 Plain chest X-ray Plan of Treatment Date Care Activity Detail Author Start: 12-18-2022 Procedure Education Eprescribe d prescriptions (G8553) [facility] Work Phone: Start: 12-18-2022 Blood count complete auto&auto difrntl wbc CBC W/AUTO DIFF WBC (72793) [facility] Work Phone: Start: 12-18-2022 Comprehensive metabo lic panel METABOLIC PANEL, COMPREHENSIVE (07300) [facility]; [facility] Work Phone: Start: 12-18-2022 Lipid panel LIPID PANEL (64126) [facility]; [facility] Work Phone: Start: 11-11-2022 Procedure Education Eprescribe d prescriptions (G8553) [facility]; [facility] Work Phone: Start: 09-16-2022 Procedure Education Eprescribe d prescriptions (G8553) [facility]; [facility] Work Phone: Start: 09-16-2022 25 hydroxy includes fractions if performed Vitamin D Hydroxy (74317) [facility]; [facility] Work Phone: Start: 09-16-2022 Lipid panel LIPID PANEL (51984) [facility]; [facility] Work Phone: Start: 09-12-2022 Prostate specific antigen measurement PSA Level [facility] Start: 07-29-2022 Procedure Education Eprescribe d prescriptions (G8553) [facility]; [facility] Work Phone: Start: 07-14-2022 Procedure Education Eprescribe d prescriptions (G8553) [facility]; [facility] Work Phone: Start: 06-19-2022 Procedure Education Eprescribe d prescriptions (G8553) [facility]; [facility] Work Phone: Start: 06-19-2022 Blood count complete auto&auto difrntl wbc CBC W/AUTO DIFF WBC (28640) [facility]; [facility] Work Phone: Start: 06-19-2022 Comprehensive metabo lic panel METABOLIC PANEL, COMPREHENSIVE (94614) [facility]; [facility] Work Phone: Start: 06-19-2022 Assay of prostate specific antigen total PSA (PROSTATE SPECIFIC ANTIGEN) (V76.44) [facility]; [facility] Work Phone: Start: 05-21-2022 Patient Education Achilles Ten don Injury *: achilles tendonitis [facility]; [facility] Work Phone: Start: 11-20-2021 Influenza vaccination Sequenti al Influenza Vaccine (#1) [facility] Start: 09-12-2021 History and physical examination, annual for health maintenance Wellness Visit [facility] Start: 06-15-2021 COVID-19 Vaccine (4 - Booster for Moderna series) COVID-19 Vaccine (4 - Booster for Moderna series) [facility] Start: 04-12-2021 COVID-19 Vaccine (4 - Booster for Moderna series) COVID-19 Vaccine (4 - Booster for Moderna series) [facility] Start: 02-28-2021 Prostate specific antigen measurement PSA Level [facility] Start: 09-12-2020 End: 09-12-2020 Patient encounter procedure 09/12/2020 Office Visit Dima Moore DO [address] [place] [address] [phone] [facility] Physician [facility] - Sports Medicine and Primary Care Start: 03-22-2020 Tetanus [facility] Start: 02-29-2020 History and physical examination, annual for health maintenance Wellness Visit [facility] Start: 11-21-2019 Influenza vaccinatio n given Sequential Influenza Vaccine (#1) [facility] Start: 06-13-2019 End: 06-13-2019 Clinical Support 06/13/2019 Clinical Support Sports Medicine [facility] - [facility] Medicine and Primary Care Start: 04-25-2019 Administration of rpes zoster vaccine Zoster Vaccines (2 of 2) [facility] Start: 02-28-2019 End: 02-28-2019 Office Visit 02/28/2019 Office Visit Dima Moore DO [address] [place] [address] [phone] [facility] - [facility] Medicine and Primary Care Start: 01-12-2019 End: 01-12-2019 Office Visit 01/12/2019 Office Visit Dima Moore DO [address] [place] [address] [phone] [facility] - [facility] Start: 11-20-2018 Influenza vaccinatio n given SEQUENTIAL INFLUENZA VACCINE (#1) [facility] Start: 2018 Administration of he rpes zoster vaccine Zoster Vaccines (1 of 2) [facility] Start: 2018 Screening for malign ant neoplasm of colon [facility] Start: 11-20-2016 Influenza vaccination SEQUENTI AL INFLUENZA VACCINE (#1) [facility] Work Phone: Start: 06-03-2016 History and physical examination, annual for health maintenance Wellness Visit [facility] Start: 1986 Hepatitis C antibody , confirmatory test Hepatitis C Screening [facility] Start: 1986 Hepatitis C screening Hepatitis C Sc reening [facility] Start: 1984 COVID-19 Vaccine (1 of 2) COVID-19 Vaccine (1 of 2) [facility] Start: 1984 COVID-19 Vaccine (1) COVID-19 Vaccin e (1) [facility] Start: 09-15-1983 HIV screening HIV Screening [facility] Start: 1970 Depression screening using PHQ-9 (Patient Health Questionnaire 9) score DEPRESSION SCREENING (PHQ9) [facility] Start: 1968 Prostate specific antigen measurement PSA Level [facility] Start: 1968 Screening for malign ant neoplasm of colon [facility] Start: 1968 Tetanus vaccination TETANUS EVERY 10 YR [facility] Work Phone: End: 09-12-2021 CBC panel - Blood by Automated count CBC Lab Routine Routine general medical examination at a health care facility 1 Occurrences starting 09/12/2020 until 09/12/2021 [facility] Comment on above: 1 Occurrences starti ng 09/12/2020 until 09/12/2021 CBC panel - Blood by Automated count CBC Lab Routine Routine general medical examination at a health care facility 09/12/2020 8:03 AM EDT [facility] Colonoscopy [facility] End: 02-28-2020 Comprehensive metabolic 2000 panel Comprehensive Metabolic Panel Lab Routine Routine general medical examination at a health care facility 1 Occurrences starting 02/28/2019 until 02/28/2020 [facility] Comment on above: 1 Occurrences starti ng 02/28/2019 until 02/28/2020 Comprehensive metabo lic 2000 panel [facility] End: 09-12-2021 Comprehensive metabolic 2000 panel - Serum or Plasma [facility] Met[facility] Panel Lab Routine Routine general medical examination at a health care facility 1 Occurrences starting 09/12/2020 until 09/12/2021 [facility] Comment on above: 1 Occurrences starti ng 09/12/2020 until 09/12/2021 End: 02-28-2020 Lipid 1996 panel Lipid Panel Lab Routine Routine general medical examination at a health care facility 1 Occurrences starting 02/28/2019 until 02/28/2020 [facility] Comment on above: 1 Occurrences starti ng 02/28/2019 until 02/28/2020 Lipid 1996 panel [facility] End: 09-12-2021 Lipid 1996 panel - Serum or Plasma Lipid Panel Lab Routine Routine general medical examination at a health care facility 1 Occurrences starting 09/12/2020 until 09/12/2021 [facility] Comment on above: 1 Occurrences starti ng 09/12/2020 until 09/12/2021 Patient Education ED Fainting, U ncertain Cause [facility] Work Phone: Patient referral [facility] Work Phone: End: 02-28-2020 Prostate specific Ag [Mass/Vol] PSA, Screen Lab Routine Routine general medical examination at a health care facility Prostate cancer screening 1 Occurrences starting 02/28/2019 until 02/28/2020 [facility] Comment on above: 1 Occurrences starti ng 02/28/2019 until 02/28/2020 Prostate specific Ag [Mass/Vol] [facility] End: 09-12-2021 Prostate specific Ag [Mass/volume] in Serum or Plasma PSA, Screen Lab Routine Prostate cancer screening 1 Occurrences starting 09/12/2020 until 09/12/2021 [facility] Comment on above: 1 Occurrences starti ng 09/12/2020 until 09/12/2021 [facility] Work Phone: [facility] Work Phone: [facility] Work Phone: [facility] Work Phone: [facility] Work Phone: [facility] Work Phone: [facility] Work Phone: [facility] Work Phone: Immunizations Immunization Date Immunization Notes Care Provider [facility] 01-27-2020 influenza, seasonal, injectable Hannah Leiva [facility] 08-17-2019 zoster vaccine recombinant Sapna rowe [facility] 08-17-2019 varicella-zoster gE, diluent + powder, (SHINGRIX KIT) 50 mcg/0.5 mL injection Sapna Rosas [facility] 02-28-2019 zoster vaccine recombinant Dima lopes [facility] 02-28-2019 varicella-zoster gE, diluent + powder, (SHINGRIX KIT) 50 mcg/0.5 mL injection Dima Scott [facility] 01-14-2019 Influenza, injectabl e, Madin [place] Canine Kidney, preservative free, quadrivalent [facility] 01-16-2018 influenza, injectabl e, quadrivalent, preservative free Dima Scott [facility] 01-19-2017 influenza, seasonal, injectable, preservative free Dima Scott [facility] 01-10-2016 influenza, seasonal, injectable [facility] 01-16-2015 influenza, seasonal, injectable, preservative free Dima [facility] 03-22-2010 tetanus toxoid, redu zaira diphtheria toxoid, and acellular pertussis vaccine, adsorbed [facility] Payers Date Payer Category Payer Self-pay [id number] 2023 Unknown [id number] 2022 Medicare [id number] 2015 Unknown [id number] 2015 Unknown [id number] [facility] HMO/MCELROY CE PLUS/CINDA/CINDA PLUS [id number] 2015-Present [id number] 2015 Unknown [id number] [id number] 1970 Unknown [id number] 1970 Unknown [id number] 1970 Unknown [id number] 1968 Unknown [id number] 1970 Unknown [id number] 1968 Unknown [id number] Unknown [id number] Unknown [id number] Unknown [id number] Unknown [id number] Unknown [id number] Unknown [id number] Unknown [id number] Social History Date Type Detail Facility Start: 05-20-2015 End: 01-30-2017 Tobacco smoking status NHIS Never smoker [facility] Start: 1970 [facility] Start: 01-15-2019 End: 09-21-2019 Alcohol intake [facility] drink[facility] ([facility] Start: 02-28-2019 History SDOH Alcohol Binge 4 [facility] Start: 07-08-2021 End: 07-18-2021 Exposure to SARS-CoV-2 (event) Not sure [facility] Start: 05-20-2015 End: 09-21-2019 Tobacco use and exposure Never used [facility] Start: 09-21-2019 End: 08-15-2020 Alcohol intake [facility] Comment on above: 2 cups coffee daily Start: 07-18-2021 End: 10-13-2022 Tobacco smoking status NHIS Unknown if ever smoked [facility] Start: 1970 Sex Assigned At Male [facility] Alcohol Use: Alcohol Use: [facility] Work Phone: Comment on above: daily wine Exercise History: Exercise History: [facility] Work Phone: Living Situation: Living Situation: [facility]; [facility] Work Phone: Functional Status Date Assessment Result Facility 07-20-2021 Functional status Chair [facility] Work Phone: 07-20-2021 Functional status Tolerates Activity Well [facility] Work Phone: 07-19-2021 Functional status Assistive Devices None [facility] Work Phone: Mental Status Date Assessment Result Facility 07-19-2021 Cognitive function Voice/Name [facility] Work Phone: 07-18-2021 Cognitive function Level Of Cons ciousness Awake;Alert;Appropriate;Follow s Commands [facility] Work Phone: Clinical Notes 08-15-2020 to 11-21-2021 Telephone Encounter - Paieg Izquierdotic Trainer - 11/21/2021 1:29 PM EDTTelephone Encounter - Anitha Izquierdo Trainer - 11/21/2021 1:29 PM EDTPatient InstructionsAttachments Note Date & Type Note Facility 11-21-2021 Telephone encounter Note Form atting of this note might be different from the original. Last office visit: 07/25/21 Medication requested: tadalafiL (CIALIS) 5 MG tablet Diagnosis Association: Erectile dysfunction, unspecified erectile dysfunction type (N52.9) Ordered: 02/24/21 Dispensed: 3 tablets Refills: 29 [facility] 11-21-2021 Miscellaneous Notes Formattin g of this note might be different from the original. Last office visit: 07/25/21 Medication requested: tadalafiL (CIALIS) 5 MG tablet Diagnosis Association: Erectile dysfunction, unspecified erectile dysfunction type (N52.9) Ordered: 02/24/21 Dispensed: 3 tablets Refills: 29 documented in this encounter [facility] 07-25-2021 Instructions Dima Scott DO - 07/25/2021 9:26 AM EDT Consider taking the prescription meclizine for persistent dizziness taking 2- 3 times a day for 3-5 days if constant. The following attachments cannot be sent through Care Everywhere.Vasovagal Syncope (Turkish)documented in this encounter [facility] 07-25-2021 History of Presen t illness Narrative [facility] PRIMARY CARE [address] [place] [address] [address] [facility] [address] Subjective: Patient ID: Tom Jones is a 50 y.o. male. Chief Complaint Patient presents with Syncope Pt stated that he spend 2 days in the hospitsl after 3 episodes of Syncope. He was put on prednisone for 5 days 40mg and 1 day of 60 Mg. HPI -f/u recent 2 day admission to a hospital in [place], [place] due to syncopal episode, discharged July 20, 2021. -there are no [facility] medical records to review at time of OV today. 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 -he was sitting at his desk and then got up, noted dizzy spell that was persistent for hours. -he has been dealing with a rash noted arm pits, thighs and legs that has been itchy, seen on 07/18/[address] Marin, dx w/ dermatitis, rx for prednisone. -he did not end of filling the medication. -was a concert on that evening-07/18 in [place], did not eat much prior, towards the end felt over heating, dizzy, lightheaded. -when he got up leave, passed out x 2. -EMS to ER, workup in ER neg per patient. As he went to leave from being discharge, suffered another syncopal episode. -was admitted to hosp, extensive workup noted with per patient normal labs, EKG, echo, chest CT -working dx: Vasovagal syncope, exacerbated from Rash allergic reaction, possible sudafed PE, doxy? -currently feels well, no concerns, no passing out episodes since discharge. -completed 6 day course of prednisone burst, still taking pepcid and benedryl and cortisone cream for rash that has resolved. -off doxy and sudafed. -Denies recent illnesses or injuries. Denies CP, SOB, ASH, abd pain, N/V/D/C, urinary dysfunction. -denies hx similar symptoms. The following portions of the patient's history were reviewed and updated as appropriate: allergies, current medications, past family history, past medical history, past social history, past surgical history and problem list. Review of Systems: Negative except noted in HPI Patient Active Problem List Diagnosis Acne Erectile dysfunction Seasonal allergies Current Outpatient Medications: clobetasoL (TEMOVATE) 0.05 % gel, APPLY TO AFFECTED AREA TWICE A DAY, Disp: 15 g, Rfl: 5 albuterol (Ventolin HFA) 90 mcg/actuation inhaler, Inhale 1 (one) puff every 6 (six) hours as needed for wheezing or shortness of breath . (Patient not taking: Reported on 07/25/2021 .), Disp: 1 Inhaler, Rfl: 2 dapsone 7.5 % GlwP, Apply 1 application topically daily . (Patient not taking: Reported on 07/25/2021 .), Disp: 90 g, Rfl: 1 doxycycline hyclate (VIBRAMYCIN) 100 MG capsule, Take 100 mg by mouth 2 (two) times a day ., Disp: , Rfl: minocycline (MINOCIN,DYNACIN) 100 MG capsule, TAKE 1 CAPSULE BY MOUTH EVERY DAY (Patient not taking: No sig reported), Disp: 30 capsule, Rfl: 6 predniSONE (DELTASONE) 10 MG tablet, Take 50 mg daily for 3 days; then 40 mg daily for 3 days; then 30 mg daily for 3 days; then 20 mg daily for 3 days; then 10 mg daily for 3 days. . (Patient not taking: Reported on 07/25/2021 .), Disp: 45 tablet, Rfl: 0 tadalafiL (CIALIS) 5 MG tablet, TAKE 1 TABLET BY MOUTH EVERY DAY NEEDED (Patient not taking: Reported on 07/25/2021 .), Disp: 3 tablet, Rfl: 29 Physical Exam: Vitals: There were no vitals taken for this visit. General: alert, cooperative, well appearing, in no apparent distress. Head: Head is symmetric, normocephalic without evidence of trauma or deformity. Eyes: Pupils are equally round and reactive to light with accommodation. The extra-ocular movements are intact. The lids are without swelling, lesions, or drainage. The conjunctiva is clear and noninjected. No nystagmus Neck: There is normal range of motion. The thyroid is normal size without nodules or masses. There is no lymphadenopathy. CV: The heart sounds are regular in rate and rhythm. There is a normal S1 and S2. There or no murmurs, rubs, or gallops. Distal pulses are intact and equal. Lungs: Inspiratory and expiratory efforts are full and unlabored. Lung sounds are clear and equal to auscultation throughout all lung aceves without wheezing, rales, or rhonchi. Extremities: There is no clubbing, cyanosis, or edema. 2+ peripheral pulses. Musculoskeletal: There is no obvious deformity. Gait is normal. There is normal active range of motion of all four extremities. Motor function is grossly intact. Strength is 5/5 in the upper and lower extremity bilaterally. There are no focal deficits. Neurological: Cranial nerves II-XII are intact. There is no obvious focal sensory or motor deficits. Skin: The skin is without jaundice. It is intact without pathologic lesions, erythema, vesicles, discharge, or rash. Palpation of the skin is normal without induration, subcutaneous nodules, or tightening. Psych: alert and oriented to person, place and time. There is normal mood and affect. . Assessment/Plan: 1. Syncope, unspecified syncope type -natural history of condition discussed, DDx and tx options reviewed. -extensive discussion regarding recent hospital admission for 2 days in [place], discharge on 07/20/21. -no med records to review at time of OV today, records release signed. -likely dx vasovagal syncope, per patient noted neg workup. -advised fluids, rest, ADL's as tolerated-advance activity as tolerated. Consider holding off going to [place] [employer] graduation ceremony tomorrow however. -monitor for return of concerning symptoms, contact me FELICITY if concerns arise. -consider further workup if needed, otherwise f/u prn. -education handout on dx given. 2. Rash -unknown cause, possible reaction to doxy and/or sudafed. -both meds have been stopped. -rash resolved with prednisone taper x 6 days, pepcid, benedryl, cortisone cream. -monitor for return of symptoms, consider derm eval if occurs. I personally spent 40 minutes on this encounter today, with time spent seeing the patient, reviewing the chart and writing the note with 50% of the encounter devoted to counseling No orders of the defined types were placed in this encounter. Return if symptoms worsen or fail to improve. Dima Scott DO documented in this encounter [facility] 07-18-2021 History of Presen t illness Narrative [facility] - SPORTS MEDICINE AND PRIMARY CARE [address] [place] [address] [place] [address] Patient Name: Tom Jones Date: 07/18/21 Patient : 1970 Patient Age: 50 y.o. CC: Chief Complaint Patient presents with Rash Patient noticed rash on inner thighs and both arms/hands yesterday. SUBJECTIVE: The patient presents complaining of a 1 day history of rash. Reports started feeling itchy in his sleep 2 nights ago and then woke up in the morning with very red and raised rash on his thighs, arms chest and axillary area. Reports he took a Sudafed PE and symptoms improved somewhat but when he got home from work rash had gotten worse again. Patient reports one episode of dizziness earlier this week that spontaneously resolved. 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 Has taken a home COVID test and it was negative. The patients reports the rash is described as pruitic. The patient has tried Sudafed PE without significant relief. The patient reports no known contact exposures, no recent outdoor activity. Does report a new detergent but has been using is for over a week and same brand as previous one. Otherwise no new new exposures, including, soaps, deodorants, foods, etc. The patient denies any prior history of similar rash. Review of Systems The patient s past medical history, allergies, medication list, social history, and family medical history were documented and reviewed in the chart. OBJECTIVE BP 120/73 Pulse 72 Resp 16 Wt 71.7 kg (158 lb) BMI 24.02 kg/m Physical Exam Vitals reviewed. Constitutional: General: He is not in acute distress. Appearance: He is not diaphoretic. Eyes: Extraocular Movements: Extraocular movements intact. Conjunctiva/sclera: Conjunctivae normal. Cardiovascular: Rate and Rhythm: Normal rate and regular rhythm. Heart sounds: Normal heart sounds. No murmur heard. Pulmonary: Effort: Pulmonary effort is normal. No respiratory distress. Breath sounds: Normal breath sounds. No wheezing. Skin: Findings: Erythema and rash present. Rash is macular and papular. Comments: Generalized erythematous maculopapular rash mostly confluent on inner thighs Neurological: Mental Status: He is alert and oriented to person, place, and time. Psychiatric: Mood and Affect: Mood and affect normal. Cognition and Memory: Memory normal. Judgment: Judgment normal. ASSESSMENT / PLAN 1. Dermatitis predniSONE (DELTASONE) 10 MG tablet 2. Rash and nonspecific skin eruption predniSONE (DELTASONE) 10 MG tablet I discussed the patient's concerns, problem, and differential diagnoses. Provided reassurance that rash does not look typical of COVID rash and that he has tested negative. Continue to monitor for symptoms and test if new symptoms do occur. Rx Prednisone taper for widespread dermatitis. May continue use of antihistamines for pruritis. Topical calamine lotion acceptable. Patient will return for follow up if symptoms are worsening or persistent despite treatment. Current Outpatient Medications Medication Sig Dispense Refill albuterol (Ventolin HFA) 90 mcg/actuation inhaler Inhale 1 (one) puff every 6 (six) hours as needed for wheezing or shortness of breath . 1 Inhaler 2 clobetasoL (TEMOVATE) 0.05 % gel APPLY TO AFFECTED AREA TWICE A DAY (Patient taking differently: as needed .) 15 g 5 dapsone 7.5 % GlwP Apply 1 application topically daily . 90 g 1 doxycycline hyclate (VIBRAMYCIN) 100 MG capsule Take 100 mg by mouth 2 (two) times a day . tadalafiL (CIALIS) 5 MG tablet TAKE 1 TABLET BY MOUTH EVERY DAY NEEDED 3 tablet 29 minocycline (MINOCIN,DYNACIN) 100 MG capsule TAKE 1 CAPSULE BY MOUTH EVERY DAY (Patient not taking: Reported on 07/18/2021 .) 30 capsule 6 predniSONE (DELTASONE) 10 MG tablet Take 50 mg daily for 3 days; then 40 mg daily for 3 days; then 30 mg daily for 3 days; then 20 mg daily for 3 days; then 10 mg daily for 3 days. . 45 tablet 0 No current facility-administered medications for this visit. Amaya Marin DO documented in this encounter [facility] 09-12-2020 Instructions Dima Scott DO - 09/12/2020 7:24 AM EDT Images from the original note were not included. Earwax Blockage: Care Instructions Your Care Instructions Earwax is a natural substance that protects the ear canal. Normally, earwax drains from the ears and does not cause problems. Sometimes earwax builds up and hardens. Earwax blockage (also called cerumen impaction) can cause some loss of hearing and pain. When wax is tightly packed, you will need to have your doctor remove it. Follow-up care is a sesay part of your treatment and safety. Be sure to make and go to all appointments, and call your doctor if you are having problems. It's also a good idea to know your test results and keep a list of the medicines you take. How can you care for yourself at home? Do not try to remove earwax with cotton swabs, fingers, or other objects. This can make the blockage worse and damage the eardrum. If your doctor recommends that you try to remove earwax at home: ? Soften and loosen the earwax with warm mineral oil. You also can try hydrogen peroxide mixed with an equal amount of room temperature water. Place 2 drops of the fluid, warmed to body temperature, in the ear two times a day for up to 5 days. ? Once the wax is loose and soft, all that is usually needed to remove it from the ear canal is a gentle, warm shower. Direct the water into the ear, then tip your head to let the earwax drain out. Dry your ear thoroughly with a hydraulic chair assembler set on low. Hold the dryer several inches from your ear. ? If the warm mineral oil and shower do not work, use an [id number] wax softener. Read and follow all instructions on the label. After using the wax softener, use an ear syringe to gently flush the ear. Make sure the flushing solution is body temperature. Cool or hot fluids in the ear can cause dizziness. When should you call for help? Call your doctor now or seek immediate medical care if: Pus or blood drains from your ear. Your ears are ringing or feel full. You have a loss of hearing. Watch closely for changes in your health, and be sure to contact your doctor if: You have pain or reduced hearing after 1 week of home treatment. You have any new symptoms, such as nausea or balance problems. Where can you learn more? Log into your personal health record on [email or web address] and enter Q495 in the Education box to learn more about Earwax Blockage: Care Instructions. Current as of: May 17, 2019 Content Version: 12.8 LS9. Care instructions adapted under license by your healthcare professional. If you have questions about a medical condition or this instruction, always ask your healthcare professional. [employer] disclaims any warranty or liability for your use of this information. documented in this encounter [facility] 09-12-2020 History of Presen t illness Narrative [facility] - [facility]ICINE AND PRIMARY CARE [address] [facility] [address] Patient Name: Tom Jones Date: 09/12/20 Patient : 1970 Patient Age: 49 y.o. CC: Chief Complaint Patient presents with Annual Exam SUBJECTIVE Patient presents for a full history and physical. The patient is not exercising regularly.The patient admits to a well balanced diet, non smoker, 14 alcohol beverages per week, 1-2 caffeine beverages per day. Denies recent illnesses or injuries. Denies CP, SOB, ASH, abd pain, N/V/D/C, urinary dysfunction. Fasting today for labs. He has not had a colonoscopy, was referred but not scheduled last year due to pandemic, so would like referral to GI. 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 UTD w/ vaccines. Left ear feels full, no pain. Otherwise no concerns. REVIEW OF SYSTEMS: GENERAL: No weight change, change in appetite, thirst, fever or chills. HEENT: No headache or blurred vision. CARDIOPULMONARY: No chest pain, palpitations or shortness of breath. GASTROINTESTINAL: No anorexia, nausea or vomiting. GENITOURINARY: No dysuria or pyuria. ENDOCRINE: No goiter, lethargy or heat/cold intolerance. HEMATOLOGY/ONCOLOGY: No pallor, bruising or bleeding. MUSCULOSKELETAL: No change in strength. No swelling. NEUROLOGIC: No headache or loss of consciousness. PSYCHIATRIC: No change in personality, affect or depression. Social History Socioeconomic History Marital status: Spouse name: Not on file Number of children: Not on file Years of education: Not on file Highest education level: Not on file Occupational History Not on file Tobacco Use Smoking status: Never Smoker Smokeless tobacco: Never Used Vaping Use Vaping Use: Never used Substance and Sexual Activity Alcohol use: Yes Alcohol/week: 14.0 standard drinks Types: 14 Glasses of wine per week Drug use: Not on file Sexual activity: Yes Other Topics Concern Not on file Social History Narrative Not on file Social Determinants of Health Financial Resource Strain: Difficulty of Paying Living Expenses: Food Insecurity: Worried About Running Out of Food in the Last Year: Ran Out of Food in the Last Year: Transportation Needs: Lack of Transportation (Medical): Lack of Transportation (Non-Medical): Physical Activity: Days of Exercise per Week: Minutes of Exercise per Session: Stress: Feeling of Stress : Social Connections: Frequency of Communication with Friends and Family: Frequency of Social Gatherings with Friends and Family: Attends Jewish Services: Active Member of Clubs or Organizations: Attends Club or Organization Meetings: Marital Status: Past Medical History: Diagnosis Date Acne 05/20/2015 Asthma Seasonal allergies Past Surgical History: Procedure Laterality Date UNDESCENDED TESTICLE EXPLORATION Family History Problem Relation Age of Onset Arthritis Mother Asthma Mother Coronary artery disease Father Arthritis Father Hyperlipidemia Father Hypertension Father Hypertension Brother Asthma Brother Hyperlipidemia Brother Cancer Maternal Grandfather lung Cancer Paternal Grandmother lung Cancer Paternal Grandfather lung Current Outpatient Medications Medication Sig Dispense Refill albuterol (Ventolin HFA) 90 mcg/actuation inhaler Inhale 1 (one) puff every 6 (six) hours as needed for wheezing or shortness of breath . 1 Inhaler 2 Cialis 5 mg tablet TAKE 1 TABLET BY MOUTH EVERY DAY NEEDED 30 tablet 2 clobetasoL (TEMOVATE) 0.05 % gel APPLY TO AFFECTED AREA TWICE A DAY (Patient taking differently: as needed .) 15 g 5 dapsone 7.5 % GlwP Apply 1 application topically daily . 90 g 1 minocycline (MINOCIN,DYNACIN) 100 MG capsule TAKE 1 CAPSULE BY MOUTH EVERY DAY 30 capsule 6 No current facility-administered medications for this visit. Allergies: Patient has no known allergies. Immunization History Administered Date(s) Administered INFLUENZA IIV3 3YO OR > FLUZONE 61588 01/10/2016, 01/27/2020 INFLUENZA QUAD 4YO OR >FLUCELVAX [id number] 01/14/2019 Influenza IIV3 3YO OR > 01/16/2015, 01/19/2017 Influenza, Injectable, Quadrivalent, Preservative Free 01/16/2018 Moderna SARS-CoV-2 Vaccination 06/01/2020, 06/29/2020 Tdap 03/22/2010 Zoster (Shingrix) 02/28/2019, 08/17/2019 Health Maintenance Topic Date Due Colorectal Cancer Screening Never done Tetanus: Every 10yrs 03/22/2020 PSA Level 02/28/2021 Wellness Visit 09/12/2021 Zoster Vaccines Completed Sequential Influenza Vaccine Completed COVID-19 Vaccine Completed Pneumococcal Vaccine: Ped or At-Risk Aged Out Hepatitis C Screening Discontinued Depression Screening (PHQ9) Discontinued HIV Screening Discontinued OBJECTIVE Vital Signs: BP 119/76 Pulse 70 Temp 97.5 F (36.4 C) Ht 5' 8 Wt 71.7 kg (158 lb) BMI 24.02 kg/m General: Alert, cooperative, well appearing, in no apparent distress. Head: Head is symmetric, normocephalic without evidence of trauma or deformity. Eyes: Pupils are equally round and reactive to light with accommodation. The extra-ocular movements are intact. The lids are without swelling, lesions, or drainage. The conjunctiva is clear and noninjected. ENT: The external auditory canals are without swelling or drainage but noted left ear cerumen impaction. The tympanic membranes are intact, clear, and non-erythematous. The septum is midline. The sinuses are nontender to palpation. The nasal mucosa is pink without drainage. The tongue and mucous membranes are pink and moist without lesions. The dentition is generally in good health. The pharynx is non-erythematous without exudates. Neck: There is normal range of motion. The thyroid is normal size without nodules or masses. There is no lymphadenopathy. CV: The heart sounds are regular in rate and rhythm. There is a normal S1 and S2. There or no murmurs, rubs, or gallops. Distal pulses are intact and equal. Lungs: Inspiratory and expiratory efforts are full and unlabored. Lung sounds are clear and equal to auscultation throughout all lung aceves without wheezing, rales, or rhonchi. GI: The abdomen is soft and nontender. Bowel sounds are present in all 4 quadrants. There is no hepatosplenomegaly or other masses. There is no rebound or guarding. There is no CVA or suprapubic tenderness. Extremities: There is no clubbing, cyanosis, or edema. 2+ peripheral pulses. Neurological: Cranial nerves II-XII, cerebellar function and mental status are intact. There are no obvious focal sensory or motor deficits. DTR s are 2+/4 in the upper and lower extremity bilaterally. Strength is 5/5 in the upper and lower extremity bilaterally. Skin: The skin is without jaundice. It is intact without pathologic lesions, erythema, vesicles, discharge, or rash. Musculoskeletal: The patient s gait is normal.There is no obvious deformity. There is normal active range of motion of all four extremities. Motor and sensory function is grossly intact. There are no focal deficits. Psych: Alert and oriented x3. Mood is normal. Affect is normal. Insight and judgement are normal. ASSESSMENT / PLAN 1. Routine general medical examination at a health care facility CBC Comprehensive Metabolic Panel Lipid Panel 2. Colon cancer screening Ambulatory referral to Gastroenterology 3. Prostate cancer screening PSA, Screen 4. Impacted cerumen of left ear We will obtain fasting blood work. Results will be communicated to the patient via MyChart or a letter. We reviewed appropriate preventative health screening guidelines. The patient is up-to-date on vaccines. The patient will be referred to GI for initial screening colonoscopy. Discussed high-fiber diet for travel to prevent constipation.. We discussed regular aerobic exercise. We discussed proper nutrition and weight control. 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 Orders Placed This Encounter Procedures CBC Standing Status: Future Standing Expiration Date: 09/12/2021 Order Specific Question: Release to patient Answer: Immediate Comprehensive Metabolic Panel Standing Status: Future Standing Expiration Date: 09/12/2021 Order Specific Question: Release to patient Answer: Immediate PSA, Screen Standing Status: Future Standing Expiration Date: 09/12/2021 Order Specific Question: Release to patient Answer: Immediate Lipid Panel Standing Status: Future Standing Expiration Date: 09/12/2021 Order Specific Question: Release to patient Answer: Immediate Ambulatory referral to Gastroenterology Standing Status: Future Standing Expiration Date: 09/12/2021 Referral Priority: Routine Referral Type: Screening Colonoscopy Number of Visits Requested: 1 No follow-ups on file. Dima Scott DO documented in this encounter [facility] 08-15-2020 Instructions Dima Scott DO - 08/15/2020 1:27 PM EDT Images from the original note were not included. -advised ice region 20 min as needed for pain, after activity. Alternate with heat 20 min as needed for pain, tightness, before activity and AM/PM. -daily stretching/exercises-see handout -ibuprofen (advil) 3-4 pills (600-800mg) with food up to 3 times/day OR naproxen (aleve) 1-2 tabs (220-440mg) with food up to 2 times/day as needed for pain. -avoid painful motions. -massage and/or foam rolling -? New shoes: Fitted at a running shoe store: Front runner -maybe in the next 1 week reduce mileage on bike and treadmill, then ramp up if pain improved. ? Need for formal physical therapy. Trochanteric Bursitis: Exercises Introduction Here are some examples of exercises for you to try. The exercises may be suggested for a condition or for rehabilitation. Start each exercise slowly. Ease off the exercises if you start to have pain. You will be told when to start these exercises and which ones will work best for you. How to do the exercises Hamstring wall stretch 1. Lie on your back in a doorway, with your good leg through the open door. 2. Slide your affected leg up the wall to straighten your knee. You should feel a gentle stretch down the back of your leg. 3. Hold the stretch for at least 1 minute to begin. Then try to lengthen the time you hold the stretch to as long as 6 minutes. 4. Repeat 2 to 4 times. 5. If you do not have a place to do this exercise in a doorway, there is another way to do it: 6. Lie on your back, and bend the knee of your affected leg. 7. Loop a towel under the ball and toes of that foot, and hold the ends of the towel in your hands. 8. Straighten your knee, and slowly pull back on the towel. You should feel a gentle stretch down the back of your leg. 9. Hold the stretch for 15 to 30 seconds. Or even better, hold the stretch for 1 minute if you can. 10. Repeat 2 to 4 times. 1. Do not arch your back. 2. Do not bend either knee. 3. Keep one heel touching the floor and the other heel touching the wall. Do not point your toes. Straight-leg raises to the outside 1. Lie on your side, with your affected leg on top. 2. Tighten the front thigh muscles of your top leg to keep your knee straight. 3. Keep your hip and your leg straight in line with the rest of your body, and keep your knee pointing forward. Do not drop your hip back. 4. Lift your top leg straight up toward the ceiling, about 12 inches off the floor. Hold for about 6 seconds, then slowly lower your leg. 5. Repeat 8 to 12 times. Clamshell 1. Lie on your side, with your affected leg on top and your head propped on a pillow. Keep your feet and knees together and your knees bent. 2. Raise your top knee, but keep your feet together. Do not let your hips roll back. Your legs should open up like a clamshell. 3. Hold for 6 seconds. 4. Slowly lower your knee back down. Rest for 10 seconds. 5. Repeat 8 to 12 times. Standing quadriceps stretch 1. If you are not steady on your feet, hold on to a chair, counter, or wall. You can also lie on your stomach or your side to do this exercise. 2. Bend the knee of the leg you want to stretch, and reach behind you to grab the front of your foot or ankle with the hand on the same side. For example, if you are stretching your right leg, use your right hand. 3. Keeping your knees next to each other, pull your foot toward your buttock until you feel a gentle stretch across the front of your hip and down the front of your thigh. Your knee should be pointed directly to the ground, and not out to the side. 4. Hold the stretch for 15 to 30 seconds. 5. Repeat 2 to 4 times. Piriformis stretch 1. Lie on your back with your legs straight. 2. Lift your affected leg and bend your knee. With your opposite hand, reach across your body, and then gently pull your knee toward your opposite shoulder. 3. Hold the stretch for 15 to 30 seconds. 4. Repeat 2 to 4 times. Double [id number] 1. Lie on your back with your knees bent and your feet flat on the floor. You can put a small pillow under your head and neck if it is more comfortable. 2. Bring both knees to your chest. 3. Keep your lower back pressed to the floor. Hold for 15 to 30 seconds. 4. Relax, and lower your knees to the starting position. 5. Repeat 2 to 4 times. Follow-up care is a sesay part of your treatment and safety. Be sure to make and go to all appointments, and call your doctor if you are having problems. It's also a good idea to know your test results and keep a list of the medicines you take. Where can you learn more? Log into your personal health record on [email or web address] and enter N503 in the Education box to learn more about Trochanteric Bursitis: Exercises. Current as of: February 05, 2020 Content Version: 12.8 LS9. Care instructions adapted under license by your healthcare professional. If you have questions about a medical condition or this instruction, always ask your healthcare professional. [employer] disclaims any warranty or liability for your use of this information. Hip : Rehab Exercises Introduction Here are some examples of exercises for you to try. The exercises may be suggested for a condition or for rehabilitation. Start each exercise slowly. Ease off the exercises if you start to have pain. You will be told when to start these exercises and which ones will work best for you. How to do the exercises Pelvic tilt with marching 11. Lie on your back with your knees bent and your feet flat on the floor. 12. Tighten your belly muscles and buttocks, and press your lower back to the floor. 13. Keeping your knees bent, lift and then lower one leg up off the floor, and then lift and lower your other leg like you are marching. Each time you lift your leg, hold that position for about 6 seconds before lowering your leg. 14. Repeat 8 to 12 times. Scissors 4. Lie on your back with your knees bent at a 90-degree angle and your feet off the floor. 5. Tighten your belly muscles and buttocks, and press your lower back to the floor. 6. Slowly straighten one leg, and hold that position for about 6 seconds. Your leg should be about 12 inches off the floor. Bring that leg back to the starting position, and then straighten your other leg. Hold that position for about 6 seconds, and then switch legs again. 7. Repeat 8 to 12 times. Hamstring stretch (lying down) 6. Lie flat on your back with your legs straight. If you feel discomfort in your back, place a small towel roll under your lower back. 7. Holding the back of your affected leg for support, lift your leg straight up and toward your body until you feel a stretch at the back of your thigh. 8. Hold the stretch for at least 30 seconds. 9. Repeat 2 to 4 times. Quadricep and hip flexor stretch (lying on side) 6. Lie on your side with your good leg flat on the floor and your hand supporting your head. 7. Bend your top leg, and reach behind you to grab the front of that foot or ankle with your other hand. 8. Stretch your leg back by pulling your foot toward your buttock. You will feel the stretch in the front of your thigh. If this causes stress on your knee, do not do this stretch. 9. Hold the stretch for at least 15 to 30 seconds. 10. Repeat 2 to 4 times. Hip flexor stretch (kneeling) 6. Kneel on your affected leg and bend your good leg out in front of you, with that foot flat on the floor. If you feel discomfort in the front of your knee, place a towel under your knee. 7. Keeping your back straight, slowly push your hips forward until you feel a stretch in the upper thigh of your back leg and hip. 8. Hold the stretch for at least 15 to 30 seconds. 9. Repeat 2 to 4 times. Hip flexor stretch (edge of table) 5. Lie flat on your back on a table or flat bench, with your knees and lower legs hanging off the edge of the table. 6. Grab your good leg at the knee, and pull that knee back toward your chest. Relax your affected leg and let it hang down toward the floor until you feel a stretch in the upper thigh of your affected leg and hip. 7. Hold the stretch for at least 15 to 30 seconds. 8. Repeat 2 to 4 times. Follow-up care is a sesay part of your treatment and safety. Be sure to make and go to all appointments, and call your doctor if you are having problems. It's also a good idea to know your test results and keep a list of the medicines you take. Where can you learn more? Log into your personal health record on [email or web address] and enter Y830 in the Education box to learn more about Hip Flexor Strain: Rehab Exercises. Current as of: February 05, 2020 Content Version: 12.8 LS9. Care instructions adapted under license by your healthcare professional. If you have questions about a medical condition or this instruction, always ask your healthcare professional. LS9 disclaims any warranty or liability for your use of this information. documented in this encounter [facility] 08-15-2020 History of Presen t illness Narrative [facility] [address] [place] [address] [address] [facility] [id number] Patient Name: Tom Jones Date: 08/15/2020 Patient : 1970 Patient Age: 49 y.o. CC: Chief Complaint Patient presents with Hip Pain left, maybe exercise related, 2-3 weeks SUBJECTIVE: The patient presents complaining of a 2-3 week history of left hip pain. The patient describes the pain as dull and achy. Active with exercise, treadmill, biking 4-5 days/week. The pain may at times become sharp and stabbing. The patient denies any acute injury that initiated the pain. The pain does not radiate into the patients groin. The pain does occasionally radiate into the posterior buttock region but mostly pain over the lateral aspect of the hip. The patient also describes decreased range of motion in the hip. The patient has tried heat, OTC medication, home stretches and activity modification without significant relief. The pain effects the patient's activities of daily living. The patient has not had x-rays of the hip performed. The patient denies any prior history of injury to the hip. He needs albuterol inhaler refill due to recent allergies increase. The review of systems was negative unless otherwise noted. The patient s past medical history, allergies, medication list, social history, and family medical history were documented, updated, and reviewed in the chart. OBJECTIVE Vitals: BP 118/77 Pulse 71 Temp 97.5 F (36.4 C) Ht 5' 8 Wt 70.8 kg (156 lb) BMI 23.72 kg/m General: alert, cooperative, well appearing, in no apparent distress. Musculoskeletal: There is no obvious deformity. Gait is normal Hip: Inspection of the hip demonstrates there is no obvious deformity or effusion. The hip is stable without evidence of dislocation. There is full flexion, extension, internal and external rotation of the hip bilaterally. Strength is 5/5 in the hip bilaterally. There is pain with resisted movements with left hip abduction. There is tenderness to palpation along the left greater trochanteric bursa. There is no tenderness to palpation over the ASIS or AIIS. There is no tenderness to palpation over the anterior aspect of the hip. The piriformis and psoas muscles demonstrate normal flexibility and are nontender to palpation. The hamstring muscles demonstrate normal flexibility and are nontender to palpation. There is an intact distal neurovascular examination. Skin: The skin is without jaundice. It is intact without pathologic lesions, erythema, vesicles, discharge, or rash. Palpation of the skin is normal without induration, subcutaneous nodules, or tightening. Extremities: There is no clubbing, cyanosis, or edema. 2+ peripheral pulses. ASSESSMENT / PLAN 1. Left hip pain 2. Trochanteric bursitis of left hip -natural history of condition discussed, DDx and tx options reviewed. -advised ice region 20 min as needed for pain, after activity. Alternate with heat 20 min as needed for pain, tightness, before activity and AM/PM. -daily stretching/exercises-see handout -ibuprofen (advil) 3-4 pills (600-800mg) with food up to 3 times/day OR naproxen (aleve) 1-2 tabs (220-440mg) with food up to 2 times/day as needed for pain. -avoid painful motions. -advised new running shoes. -advised massage/foam rolling of the area. -consider formal PT if symptoms worsen/persist. 3. Seasonal allergies - albuterol (Ventolin HFA) 90 mcg/actuation inhaler; Inhale 1 (one) puff every 6 (six) hours as needed for wheezing or shortness of breath . Dispense: 1 Inhaler; Refill: 2 No orders of the defined types were placed in this encounter. Return if symptoms worsen or fail to improve. Dima Scott DO documented in this encounter [facility] Evaluation note Diagnosis Left hip pain- Primary Pain in joint, pelvic region and thigh Trochanteric bursitis of left hip Seasonal allergies Allergic rhinitis, cause unspecified [facility] Routine general medical examination at a health care facility- Primary Colon cancer screening Special screening for malignant neoplasms, colon Prostate cancer screening Special screening for malignant neoplasm of prostate Impacted cerumen of left ear Impacted cerumen [facility] Diagnosis Dermatitis- Primary Contact dermatitis and other eczema, due to unspecified cause Rash and nonspecific skin eruption Rash and other nonspecific skin eruption [facility] Work [facility]: Evaluation note* Diagnosis Onset Date Resolution Status Contact dermatitis acute Syncope and collapse acute [facility] Work Phone: Evaluation note* Diagnosis Onset Date Resolution Status Contact dermatitis acute Drug rash acute Syncope and collapse acute [facility] Work Phone: Evaluation note* Diagnosis Syncope, unspecified syncope type- Primary Rash Rash and other nonspecific skin eruption [facility] Diagnosis Erectile dysfunction, unspecified erectile dysfunction type [facility] Diagnosis Acne, unspecified acne type [facility] Diagnosis Acne, unspecified acne type- Primary [facility] Additional Instructions Please follow-up with your primary care provider when you return home next week [facility] Work Phone: Hospital Discharge instructions[facility] Work Phone: Instructions* Name Dates Details Patient Instructions Indication:BMI 25.0-25.9,adult Start:19-Jun-2022 Instruction Type:Provider Instructions for Treatment How to Access Health Informa tion Online using Patient Portal and [employer]rd [employer] Apps Indication:BMI 25.0-25.9,adult Start:19-Jun-2022 Instruction Type:Patient Education [facility]; [facility] Work Phone: Instructions* Name Dates Details Patient Instructions Indication:BMI 25.0-25.9,adult Start:19-Jun-2022 Instruction Type:Provider Instructions for Treatment How to Access Health Informa tion Online using Patient Portal and [employer]rd [employer] Apps Indication:BMI 25.0-25.9,adult Start:19-Jun-2022 Instruction Type:Patient Education [facility]; [facility] Work Phone: instructions* Name Dates Details Patient Instructions Indication:Cough Start:14-Jul-2022 Instruction Type:Provider Instructions for Treatment How to Access Health Informa tion Online using Patient Portal and [employer]rd [employer] Apps Indication:Cough Start:14-Jul-2022 Instruction Type:Patient Education Patient Instructions Indication:BMI 25.0-25.9,adult Start:19-Jun-2022 Instruction Type:Provider Instructions for Treatment How to Access Health Informa tion Online using Patient Portal and [employer]rd [employer] Apps Indication:BMI 25.0-25.9,adult Start:19-Jun-2022 Instruction Type:Patient Education [facility]; [facility] Work Phone: instructions* Name Dates Details Patient Instructions Indication:Non-smoker Start:29-Jul-2022 Instruction Type:Provider Instructions for Treatment How to Access Health Informa tion Online using Patient Portal and [employer] Apps Indication:Non-smoker Start:29-Jul-2022 Instruction Type:Patient Education Patient Instructions Indication:Cough Start:14-Jul-2022 Instruction Type:Provider Instructions for Treatment How to Access Health Informa tion Online using Patient Portal and [employer] Apps Indication:Cough Start:14-Jul-2022 Instruction Type:Patient Education Patient Instructions Indication:BMI 25.0-25.9,adult Start:19-Jun-2022 Instruction Type:Provider Instructions for Treatment How to Access Health Informa tion Online using Patient Portal and [employer] Apps Indication:BMI 25.0-25.9,adult Start:19-Jun-2022 Instruction Type:Patient Education [facility]; [facility] Work Phone: instructions* Name Dates Details Patient Instructions Indication:Non-smoker Start:29-Jul-2022 Instruction Type:Provider Instructions for Treatment How to Access Health Informa tion Online using Patient Portal and [employer]rd [employer] Apps Indication:Non-smoker Start:29-Jul-2022 Instruction Type:Patient Education Patient Instructions Indication:Cough Start:14-Jul-2022 Instruction Type:Provider Instructions for Treatment How to Access Health Informa tion Online using Patient Portal and [employer]rd [employer] Apps Indication:Cough Start:14-Jul-2022 Instruction Type:Patient Education Patient Instructions Indication:BMI 25.0-25.9,adult Start:19-Jun-2022 Instruction Type:Provider Instructions for Treatment How to Access Health Informa tion Online using Patient Portal and [employer]rd [employer] Apps Indication:BMI 25.0-25.9,adult Start:19-Jun-2022 Instruction Type:Patient Education [facility]; [facility] Work Phone: instructions* Name Dates Details Patient Instructions Indication:Non-smoker Start:29-Jul-2022 Instruction Type:Provider Instructions for Treatment How to Access Health Informa tion Online using Patient Portal and [employer]rd [employer] Apps Indication:Non-smoker Start:29-Jul-2022 Instruction Type:Patient Education Patient Instructions Indication:Cough Start:14-Jul-2022 Instruction Type:Provider Instructions for Treatment How to Access Health Informa tion Online using Patient Portal and [employer] Apps Indication:Cough Start:14-Jul-2022 Instruction Type:Patient Education Patient Instructions Indication:BMI 25.0-25.9,adult Start:19-Jun-2022 Instruction Type:Provider Instructions for Treatment How to Access Health Informa tion Online using Patient Portal and [employer]rd [employer] Apps Indication:BMI 25.0-25.9,adult Start:19-Jun-2022 Instruction Type:Patient Education [facility]; [facility] Work Phone: instructions* Name Dates Details Patient Instructions Indication:BMI 24.0-24.9, adult Start:16-Sep-2022 Instruction Type:Provider Instructions for Treatment How to Access Health Informa tion Online using Patient Portal and [employer]rd [employer] Apps Indication:BMI 24.0-24.9, adult Start:16-Sep-2022 Instruction Type:Patient Education Patient Instructions Indication:Non-smoker Start:29-Jul-2022 Instruction Type:Provider Instructions for Treatment How to Access Health Informa tion Online using Patient Portal and [employer] Apps Indication:Non-smoker Start:29-Jul-2022 Instruction Type:Patient Education Patient Instructions Indication:Cough Start:14-Jul-2022 Instruction Type:Provider Instructions for Treatment How to Access Health Informa tion Online using Patient Portal and [employer] Apps Indication:Cough Start:14-Jul-2022 Instruction Type:Patient Education Patient Instructions Indication:BMI 25.0-25.9,adult Start:19-Jun-2022 Instruction Type:Provider Instructions for Treatment How to Access Health Informa tion Online using Patient Portal and [employer] Apps Indication:BMI 25.0-25.9,adult Start:19-Jun-2022 Instruction Type:Patient Education [facility]; [facility] Work Phone: instructions* Name Dates Details Patient Instructions Indication:BMI 24.0-24.9, adult Start:16-Sep-2022 Instruction Type:Provider Instructions for Treatment How to Access Health Informa tion Online using Patient Portal and [employer] Apps Indication:BMI 24.0-24.9, adult Start:16-Sep-2022 Instruction Type:Patient Education Patient Instructions Indication:Non-smoker Start:29-Jul-2022 Instruction Type:Provider Instructions for Treatment How to Access Health Informa tion Online using Patient Portal and [employer] Apps Indication:Non-smoker Start:29-Jul-2022 Instruction Type:Patient Education Patient Instructions Indication:Cough Start:14-Jul-2022 Instruction Type:Provider Instructions for Treatment How to Access Health Informa tion Online using Patient Portal and [employer] Apps Indication:Cough Start:14-Jul-2022 Instruction Type:Patient Education Patient Instructions Indication:BMI 25.0-25.9,adult Start:19-Jun-2022 Instruction Type:Provider Instructions for Treatment How to Access Health Informa tion Online using Patient Portal and [employer] Apps Indication:BMI 25.0-25.9,adult Start:19-Jun-2022 Instruction Type:Patient Education [facility]; [facility] Work Phone: instructions* Name Dates Details Patient Instructions Indication:BMI 24.0-24.9, adult Start:16-Sep-2022 Instruction Type:Provider Instructions for Treatment How to Access Health Informa tion Online using Patient Portal and [employer] Apps Indication:BMI 24.0-24.9, adult Start:16-Sep-2022 Instruction Type:Patient Education Patient Instructions Indication:Non-smoker Start:29-Jul-2022 Instruction Type:Provider Instructions for Treatment How to Access Health Informa tion Online using Patient Portal and [employer] Apps Indication:Non-smoker Start:29-Jul-2022 Instruction Type:Patient Education Patient Instructions Indication:Cough Start:14-Jul-2022 Instruction Type:Provider Instructions for Treatment How to Access Health Informa tion Online using Patient Portal and [employer] Apps Indication:Cough Start:14-Jul-2022 Instruction Type:Patient Education Patient Instructions Indication:BMI 25.0-25.9,adult Start:19-Jun-2022 Instruction Type:Provider Instructions for Treatment How to Access Health Informa tion Online using Patient Portal and [employer] Apps Indication:BMI 25.0-25.9,adult Start:19-Jun-2022 Instruction Type:Patient Education [facility]; [facility] Work Phone: instructions* Name Dates Details Patient Instructions Indication:BMI 24.0-24.9, adult Start:16-Sep-2022 Instruction Type:Provider Instructions for Treatment How to Access Health Informa tion Online using Patient Portal and [employer] Apps Indication:BMI 24.0-24.9, adult Start:16-Sep-2022 Instruction Type:Patient Education Patient Instructions Indication:Non-smoker Start:29-Jul-2022 Instruction Type:Provider Instructions for Treatment How to Access Health Informa tion Online using Patient Portal and [employer] Apps Indication:Non-smoker Start:29-Jul-2022 Instruction Type:Patient Education Patient Instructions Indication:Cough Start:14-Jul-2022 Instruction Type:Provider Instructions for Treatment How to Access Health Informa tion Online using Patient Portal and [employer] Apps Indication:Cough Start:14-Jul-2022 Instruction Type:Patient Education Patient Instructions Indication:BMI 25.0-25.9,adult Start:19-Jun-2022 Instruction Type:Provider Instructions for Treatment How to Access Health Informa tion Online using Patient Portal and [employer] Apps Indication:BMI 25.0-25.9,adult Start:19-Jun-2022 Instruction Type:Patient Education [facility]; [facility] Work Phone: instructions* Name Dates Details Patient Instructions Indication:BMI 24.0-24.9, adult Start:16-Sep-2022 Instruction Type:Provider Instructions for Treatment How to Access Health Informa tion Online using Patient Portal and [employer] Apps Indication:BMI 24.0-24.9, adult Start:16-Sep-2022 Instruction Type:Patient Education Patient Instructions Indication:Non-smoker Start:29-Jul-2022 Instruction Type:Provider Instructions for Treatment How to Access Health Informa tion Online using Patient Portal and [employer] Apps Indication:Non-smoker Start:29-Jul-2022 Instruction Type:Patient Education Patient Instructions Indication:Cough Start:14-Jul-2022 Instruction Type:Provider Instructions for Treatment How to Access Health Informa tion Online using Patient Portal and [employer] Apps Indication:Cough Start:14-Jul-2022 Instruction Type:Patient Education Patient Instructions Indication:BMI 25.0-25.9,adult Start:19-Jun-2022 Instruction Type:Provider Instructions for Treatment How to Access Health Informa tion Online using Patient Portal and [employer] Apps Indication:BMI 25.0-25.9,adult Start:19-Jun-2022 Instruction Type:Patient Education [facility]; [facility] Work Phone: Instructions* Name Dates Details Patient Instructions Indication:BMI 24.0-24.9, adult Start:11-Nov-2022 Instruction Type:Provider Instructions for Treatment How to Access Health Informa tion Online using Patient Portal and [employer] Apps Indication:BMI 24.0-24.9, adult Start:11-Nov-2022 Instruction Type:Patient Education Patient Instructions Indication:BMI 24.0-24.9, adult Start:16-Sep-2022 Instruction Type:Provider Instructions for Treatment How to Access Health Informa tion Online using Patient Portal and [employer] Apps Indication:BMI 24.0-24.9, adult Start:16-Sep-2022 Instruction Type:Patient Education Patient Instructions Indication:Non-smoker Start:29-Jul-2022 Instruction Type:Provider Instructions for Treatment How to Access Health Informa tion Online using Patient Portal and [employer] Apps Indication:Non-smoker Start:29-Jul-2022 Instruction Type:Patient Education Patient Instructions Indication:Cough Start:14-Jul-2022 Instruction Type:Provider Instructions for Treatment How to Access Health Informa tion Online using Patient Portal and [employer] Apps Indication:Cough Start:14-Jul-2022 Instruction Type:Patient Education Patient Instructions Indication:BMI 25.0-25.9,adult Start:19-Jun-2022 Instruction Type:Provider Instructions for Treatment How to Access Health Informa tion Online using Patient Portal and [employer]rd [employer] Apps Indication:BMI 25.0-25.9,adult Start:19-Jun-2022 Instruction Type:Patient Education [facility]; [facility] Work Phone: Instructions* Name Dates Details Patient Instructions Indication:Non-smoker Start:18-Dec-2022 Instruction Type:Provider Instructions for Treatment How to Access Health Informa tion Online using Patient Portal and [employer]rd [employer] Apps Indication:Non-smoker Start:18-Dec-2022 Instruction Type:Patient Education Patient Instructions Indication:BMI 24.0-24.9, adult Start:11-Nov-2022 Instruction Type:Provider Instructions for Treatment How to Access Health Informa tion Online using Patient Portal and [employer]rd [employer] Apps Indication:BMI 24.0-24.9, adult Start:11-Nov-2022 Instruction Type:Patient Education Patient Instructions Indication:BMI 24.0-24.9, adult Start:16-Sep-2022 Instruction Type:Provider Instructions for Treatment How to Access Health Informa tion Online using Patient Portal and [employer]rd [employer] Apps Indication:BMI 24.0-24.9, adult Start:16-Sep-2022 Instruction Type:Patient Education Patient Instructions Indication:Non-smoker Start:29-Jul-2022 Instruction Type:Provider Instructions for Treatment How to Access Health Informa tion Online using Patient Portal and [employer]rd [employer] Apps Indication:Non-smoker Start:29-Jul-2022 Instruction Type:Patient Education Patient Instructions Indication:Cough Start:14-Jul-2022 Instruction Type:Provider Instructions for Treatment How to Access Health Informa tion Online using Patient Portal and [employer]rd [employer] Apps Indication:Cough Start:14-Jul-2022 Instruction Type:Patient Education Patient Instructions Indication:BMI 25.0-25.9,adult Start:19-Jun-2022 Instruction Type:Provider Instructions for Treatment How to Access Health Informa tion Online using Patient Portal and 3rd [employer] Apps Indication:BMI 25.0-25.9,adult Start:19-Jun-2022 Instruction Type:Patient Education [facility]; [facility] Work Phone: instructions* Name Dates Details Patient Instructions Indication:Non-smoker Start:18-Dec-2022 Instruction Type:Provider Instructions for Treatment How to Access Health Informa tion Online using Patient Portal and [employer]rd [employer] Apps Indication:Non-smoker Start:18-Dec-2022 Instruction Type:Patient Education Patient Instructions Indication:BMI 24.0-24.9, adult Start:11-Nov-2022 Instruction Type:Provider Instructions for Treatment How to Access Health Informa tion Online using Patient Portal and [employer]rd [employer] Apps Indication:BMI 24.0-24.9, adult Start:11-Nov-2022 Instruction Type:Patient Education Patient Instructions Indication:BMI 24.0-24.9, adult Start:16-Sep-2022 Instruction Type:Provider Instructions for Treatment How to Access Health Informa tion Online using Patient Portal and [employer]rd [employer] Apps Indication:BMI 24.0-24.9, adult Start:16-Sep-2022 Instruction Type:Patient Education Patient Instructions Indication:Non-smoker Start:29-Jul-2022 Instruction Type:Provider Instructions for Treatment How to Access Health Informa tion Online using Patient Portal and [employer]rd [employer] Apps Indication:Non-smoker Start:29-Jul-2022 Instruction Type:Patient Education Patient Instructions Indication:Cough Start:14-Jul-2022 Instruction Type:Provider Instructions for Treatment How to Access Health Informa tion Online using Patient Portal and [employer] Apps Indication:Cough Start:14-Jul-2022 Instruction Type:Patient Education Patient Instructions Indication:BMI 25.0-25.9,adult Start:19-Jun-2022 Instruction Type:Provider Instructions for Treatment How to Access Health Informa tion Online using Patient Portal and [employer] Apps Indication:BMI 25.0-25.9,adult Start:19-Jun-2022 Instruction Type:Patient Education [facility]; [facility] Work Phone: Instructions* Name Dates Details Patient Instructions Indication:Non-smoker Start:18-Dec-2022 Instruction Type:Provider Instructions for Treatment How to Access Health Informa tion Online using Patient Portal and [employer]rd [employer] Apps Indication:Non-smoker Start:18-Dec-2022 Instruction Type:Patient Education Patient Instructions Indication:BMI 24.0-24.9, adult Start:11-Nov-2022 Instruction Type:Provider Instructions for Treatment How to Access Health Informa tion Online using Patient Portal and [employer]rd [employer] Apps Indication:BMI 24.0-24.9, adult Start:11-Nov-2022 Instruction Type:Patient Education Patient Instructions Indication:BMI 24.0-24.9, adult Start:16-Sep-2022 Instruction Type:Provider Instructions for Treatment How to Access Health Informa tion Online using Patient Portal and [employer]rd [employer] Apps Indication:BMI 24.0-24.9, adult Start:16-Sep-2022 Instruction Type:Patient Education Patient Instructions Indication:Non-smoker Start:29-Jul-2022 Instruction Type:Provider Instructions for Treatment How to Access Health Informa tion Online using Patient Portal and [employer] Apps Indication:Non-smoker Start:29-Jul-2022 Instruction Type:Patient Education Patient Instructions Indication:Cough Start:14-Jul-2022 Instruction Type:Provider Instructions for Treatment How to Access Health Informa tion Online using Patient Portal and [employer] Apps Indication:Cough Start:14-Jul-2022 Instruction Type:Patient Education Patient Instructions Indication:BMI 25.0-25.9,adult Start:19-Jun-2022 Instruction Type:Provider Instructions for Treatment How to Access Health Informa tion Online using Patient Portal and [employer] Apps Indication:BMI 25.0-25.9,adult Start:19-Jun-2022 Instruction Type:Patient Education [facility]; [facility] Work Phone: Instructions * Patient Instructions - Dima Scott, - 07/07/2017 2:05 PM EDT Formatting of this note may be different from the original. Monitor for worsening symptoms, call [facility] if concerns arise. -consider still using nasocort, possible trial with over the counter phenylephrine (sudafed light) -use sudafed on top of using nasal spray. =-consider also possible treatment with over the counter meclizine (antivert). If taking, take 25mgone tab up to 2-3 times per day x 3-5 days in a row. -fluids, low salt, slow position changes. Benign Paroxysmal Positional Vertigo (BPPV): Care Instructions Your Care Instructions Benign paroxysmal positional vertigo, also called BPPV, is an inner ear problem. It causes a spinning or whirling sensation when you move your head. This sensation is called vertigo. The vertigo usually lasts for less than a minute. People often have vertigo spells for a few days or weeks. Then the vertigo goes away. But it may come back again. The vertigo may be mild, or it may be bad enough to cause unsteadiness, nausea, and vomiting. When you move, your inner ear sends messages to the brain. This helps you keep your balance. Vertigo can happen when debris builds up in the inner ear. The buildup can cause the inner ear to send thewrong message to the brain. Your doctor may move you in different positions to help your vertigo get better faster. This is called the Luisa maneuver. Your doctor may also prescribe medicines or exercises to help with your symptoms. Follow-up care is a sesay part of your treatment and safety. Be sure to make and go to all appointments, and call your doctor if you are having problems. It's also a good idea to know your test resultsand keep a list of the medicines you take. How can you care for yourself at home? If your doctor suggests that you do Omalley-Daroff exercises: Sit on the edge of a bed or sofa. Quickly lie down on the side that causes the worst vertigo. Lie on your side with your ear down. Stay in this position for at least 30 seconds or until the vertigo goes away. Sit up. If this causes vertigo, wait for it to stop. Repeat the procedure on the other side. Repeat this 10 times. Do these exercises 2 times a day until the vertigo is gone. When should you call for help? Call 911 anytime you think you may need emergency care. For example, call if: ? You have symptoms of a stroke. These may include: Sudden numbness, tingling, weakness, or loss of movement in your face, arm, or leg, especially on only one side of your body. Sudden vision changes. Sudden trouble speaking. Sudden confusion or trouble understanding simple statements. Sudden problems with walking or balance. A sudden, severe headache that is different from past headaches. ?Call your doctor now or seek immediate medical care if: ? You have new or worse nausea and vomiting. ? You have new symptoms such as hearing loss or roaring in your ears. ?Watch closely for changes in your health, and be sure to contact your doctor if: ? You are not getting better as expected. ? Your vertigo gets worse. Where can you learn more? Log into your personal health record on [email or web address].[email or web address] and enter P372 in the Education box to learn more about Benign Paroxysmal Positional Vertigo (BPPV): Care Instructions. Current as of: July 31, 2016 Content Version: 11.6 9764-1630 LS9. Care instructions adapted under license by your healthcare professional. If you have questions about a medical condition or this instruction, always ask your healthcare professional. LS9 disclaims any warranty or liability for your use of this information. For foot: Ice as needed x 20 min, daily stretching of toes -advil or aleve as needed for pain -bunion sleeve for toes: internet. -go to [facility] [employer] [facility] for shoe fitting. -follow up prior to trip for foot cortisone injection if no relief worsening. Foot Sprain (Metatarsophalangeal Joint): Rehab Exercises Your Care Instructions Here are some examples of typical rehabilitation exercises for your condition. Start each exercise slowly. Ease off the exercise if you start to have pain. Your doctor or physical therapist will tell you when you can start these exercises and which ones will work best for you. How to do the exercises Great toe extension stretch 1. Sit in a chair, and put your affected foot across your other knee. 2. Grasp your heel with one hand, and then slowly pull your big toe back with your other hand. Pullyour toe back toward your ankle until you feel a stretch along the bottom of your foot. 3. Hold the stretch for at least 15 to 30 seconds. 4. Repeat 2 to 4 times. Great toe flexion stretch 1. Sit in a chair, and put your affected foot across your other knee. 2. Grasp your heel with one hand, and then slowly push your big toe down with your other hand. Pushyour toe down and away from your ankle until you feel a stretch along the top of your foot. 3. Hold the stretch for at least 15 to 30 seconds. 4. Repeat 2 to 4 times. Great toe traction stretch 1. Sit in a chair, and put your affected foot across your other knee. 2. Grasp your heel and the middle part of your foot with one hand. With your other hand, use your thumb and middle finger to grasp your big toe and gently pull it straight out and away from your foot. 3. Hold the stretch for at least 15 to 30 seconds. 4. Repeat 2 to 4 times. Forefoot stretch 1. Sit in a chair with your affected leg bent, and put the heel of your affected foot on the edge of the seat. Or you can sit on the floor with your leg bent and your heel digging into the floor. 2. Grasp your foot with both hands. Your thumbs will be on the top side of your foot just below thejoints where your toes connect to your foot. Your other fingers will be underneath your foot. 3. Use the fingers underneath your foot to push up on the two toes that are closest to your big toe. Then use your thumbs and hands to spread your foot and toes outward until you feel a stretch in your foot. The outer edges of your foot will curve downward as you push up on the middle toes. Hold the stretch for at least 15 to 30 seconds. 4. Next, slowly press your thumbs down on the two toes that are closest to your big toe. The outer edges of your foot will curve upward. Hold the stretch for at least 15 to 30 seconds until you feel a stretch in your foot. 5. Repeat 2 to 4 times. Towel scrunches 1. Sit in a chair, and place both feet on a towel on the floor. 2. Scrunch the towel toward you with your toes. Then use your toes to push the towel back into place. 3. Repeat 8 to 12 times. Allen pick-ups 1. Put some marbles on the floor next to a cup. 2. Sit in a chair, and use the toes of your affected foot to lift up one marble from the floor at atime. Then try to put the marble in the cup. 3. Repeat 8 to 12 times. Follow-up care is a sesay part of your treatment and safety. Be sure to make and go to all appointments, and call your doctor if you are having problems. It's also a good idea to know your test resultsand keep a list of the medicines you take. Where can you learn more? Log into your personal health record on [email or web address].[email or web address].Aniboom and enter T597 in the Education box to learn more about Foot Sprain (Metatarsophalangeal Joint): Rehab Exercises. Current as of: February 17, 2017 Content Version: 11.20053683-9537 LS9. Care instructions adapted under license by your healthcare professional. If you have questions about a medical condition or this instruction, always ask your healthcare professional. LS9 disclaims any warranty or liability for your use of this information. in this encounter* Patient Instructions - Dima Scott DO - 01/28/2017 1:37 PM EST Fluids, cough drops, rest, advil or tylenol as needed for aches/fever/pains, vix rapor rub, tea w/ honey. dayquil for daytime cough/congestion, nyquil as needed at night. in this encounter* Patient Instructions* Dima Scott DO - 01/12/2019 1:41 PM EDT Try over the counter flonase nasal spray 2 sprays/nostril once daily Consider taking allergra or claritin once daily over the counter for allergies. Fluids, cough drops, rest, advil or tylenol as needed for aches/fever/pains, vix rapor rub, tea w/ honey. Dayquil for cough/congestion, nyquil as needed at night. Contact me in 7-10 days if no relief, worsening symptoms. Consider calling [facility] (Dr. Collins) to schedule derm check up. documented in this encounter* Patient Instructions* Dima Scott DO - 09/21/2019 10:03 AM EDT -advised ice region 20 min as needed for pain, after activity. Alternate with heat 20 min as neededfor pain, tightness, before activity and AM/PM. -daily stretching/exercises-see handout -ibuprofen (advil) 3-4 pills (600-800mg) with food up to 3 times/day OR naproxen (aleve) 1-2 tabs (220-440mg) with food up to 2 times/day as needed for pain. -avoid painful motions. -knee sleeve with knee cap cut out as needed with activity x 2-3 weeks. -consider my chart message to me in 4-5 weeks if no relief, worsening symptoms. ? Formal physical therapy Patellofemoral Pain Syndrome: Care Instructions Your Care Instructions Patellofemoral pain syndrome is pain in the front of the knee. It is caused by overuse, weak thigh muscles (quadriceps), or a problem with the way the kneecap moves. Extra weight may also cause this syndrome. The patella is the kneecap, and the femur is the thighbone. Some people may have pain in the front of the knee from a condition called chondromalacia. In this problem, the underside of the knee cartilage wears down and frays. Cartilage is a rubbery tissue that cushions joints. In some cases, the kneecap does not move, or track, in a normal way. You may have knee pain when you run, walk down hills or steps, or do another activity. Sitting for a long time also can cause kneepain. Your knee pain may get better with medicines for pain and swelling and exercises to make your quadriceps stronger. Losing weight, if you need to, may also help with pain. Follow-up care is a sesay part of your treatment and safety. Be sure to make and go to all appointments, and call your doctor if you are having problems. It's also a good idea to know your test resultsand keep a list of the medicines you take. How can you care for yourself at home? Ask your doctor if you can take an [id number] pain medicine, such as acetaminophen (Tylenol),ibuprofen (Advil, Motrin), or naproxen (Aleve). Be safe with medicines. Read and follow all instructions on the label. Rest and protect your knee. Take a break from activities that cause pain, such as long periods of sitting or kneeling. Put ice or a cold pack on your knee for 10 to 20 minutes after activity. Put a thin cloth between the ice and your skin. If your doctor recommends an elastic bandage, sleeve, or other type of support for your knee, wear it as directed. If your knee is not swollen, you can put moist heat, a heating pad, or a warm cloth on your knee. After several days of rest, you can begin gentle exercise of your knee. Reach and stay at a healthy weight. Being overweight puts stress on your knees. Wear athletic shoes that offer good support, especially if you run. Use shoe inserts, or orthotics, if they help reduce your knee pain. Many drugstores and shoe storessell them. See a physical therapist to learn more exercises and stretches to make your legs stronger. When should you call for help? Watch closely for changes in your health, and be sure to contact your doctor if: Your knee pain does not get better or gets worse. Where can you learn more? Log into your personal health record on [email or web address].[email or web address].Aniboom and enter U786 in the Education box to learn more about Patellofemoral Pain Syndrome: Care Instructions. Current as of: May 22, 2019 Content Version: 12.5 LS9. Care instructions adapted under license by your healthcare professional. If you have questions about a medical condition or this instruction, always ask your healthcare professional. LS9 disclaims any warranty or liability for your use of this information. Patellofemoral Pain Syndrome (Runner's Knee): Exercises Introduction Here are some examples of exercises for you to try. The exercises may be suggested for a condition or for rehabilitation. Start each exercise slowly. Ease off the exercises if you start to have pain. You will be told when to start these exercises and which ones will work best for you. How to do the exercises Calf wall stretch 1. Stand facing a wall with your hands on the wall at about eye level. Put your affected leg about a step behind your other leg. 2. Keeping your back leg straight and your back heel on the floor, bend your front knee and gently bring your hip and chest toward the wall until you feel a stretch in the calf of your back leg. 3. Hold the stretch for at least 15 to 30 seconds. 4. Repeat 2 to 4 times. 5. Repeat steps 1 through 4, but this time keep your back knee bent. Quadriceps stretch 1. If you are not steady on your feet, hold on to a chair, counter, or wall. 2. Bend your affected leg, and reach behind you to grab the front of your foot or ankle with the hand on the same side. For example, if you are stretching your right leg, use your right hand. 3. Keeping your knees next to each other, pull your foot toward your buttock until you feel a gentle stretch across the front of your hip and down the front of your thigh. Your knee should be pointeddirectly to the ground, and not out to the side. 4. Hold the stretch for at least 15 to 30 seconds. 5. Repeat 2 to 4 times. Hamstring wall stretch 1. Lie on your back in a doorway, with your good leg through the open door. 2. Slide your affected leg up the wall to straighten your knee. You should feel a gentle stretch down the back of your leg. 3. Hold the stretch for at least 1 minute. Then over time, try to lengthen the time you hold the stretch to as long as 6 minutes. 4. Repeat 2 to 4 times. 5. If you do not have a place to do this exercise in a doorway, there is another way to do it: 6. Lie on your back, and bend your affected leg. 7. Loop a towel under the ball and toes of that foot, and hold the ends of the towel in your hands. 8. Straighten your knee, and slowly pull back on the towel. You should feel a gentle stretch down the back of your leg. 9. Hold the stretch for at least 15 to 30 seconds. Or even better, hold the stretch for 1 minute ifyou can. 10. Repeat 2 to 4 times. 1. Do not arch your back. 2. Do not bend either knee. 3. Keep one heel touching the floor and the other heel touching the wall. Do not point your toes. Quad sets 1. Sit with your affected leg straight and supported on the floor or a firm bed. Place a small, rolled-up towel under your affected knee. Your other leg should be bent, with that foot flat on the floor. 2. Tighten the thigh muscles of your affected leg by pressing the back of your knee down into the towel. 3. Hold for about 6 seconds, then rest for up to 10 seconds. 4. Repeat 8 to 12 times. Straight-leg raises to the front 1. Lie on your back with your good knee bent so that your foot rests flat on the floor. Your affected leg should be straight. Make sure that your low back has a normal curve. You should be able to slip your hand in between the floor and the small of your back, with your palm touching the floor and your back touching the back of your hand. 2. Tighten the thigh muscles in your affected leg by pressing the back of your knee flat down to the floor. Hold your knee straight. 3. Keeping the thigh muscles tight and your leg straight, lift your affected leg up so that your heel is about 12 inches off the floor. 4. Hold for about 6 seconds, then lower your leg slowly. Rest for up to 10 seconds between repetitions. 5. Repeat 8 to 12 times. Straight-leg raises to the back 1. Lie on your stomach, and lift your leg straight up behind you (toward the ceiling). 2. Lift your toes about 6 inches off the floor, hold for about 6 seconds, then lower slowly. 3. Do 8 to 12 repetitions. Wall slide with ball squeeze 1. Stand with your back against a wall and with your feet about shoulder-width apart. Your feet should be about 12 inches away from the wall. 2. Put a ball about the size of a soccer ball between your knees. Then slowly slide down the wall until your knees are bent about 20 to 30 degrees. 3. Tighten your thigh muscles by squeezing the ball between your knees. Hold that position for about 10 seconds, then stop squeezing. Rest for up to 10 seconds between repetitions. 4. Repeat 8 to 12 times. Follow-up care is a sesay part of your treatment and safety. Be sure to make and go to all appointments, and call your doctor if you are having problems. It's also a good idea to know your test resultsand keep a list of the medicines you take. Where can you learn more? Log into your personal health record on [email or web address].co.Aniboom and enter A404 in the Education box to learn more about Patellofemoral Pain Syndrome (Runner's Knee): Exercises. Current as of: May 22, 2019 Content Version: 12.5 LS9. Care instructions adapted under license by your healthcare professional. If you have questions about a medical condition or this instruction, always ask your healthcare professional. LS9 disclaims any warranty or liability for your use of this information. documented in this encounter* Patient Instructions* Dima Scott DO - 02/28/2019 7:35 AM EST With travel: Increased fiber/water in diet, consider metamucil fiber capsules/gummies, miralax over the counter for travel as needed for constipation. High-Fiber Diet: Care Instructions Your Care Instructions A high-fiber diet may help you relieve constipation and feel less bloated. Your doctor and dietitian will help you make a high-fiber eating plan based on your personal needs.The plan will include the things you like to eat. It will also make sure that you get 30 grams of fiber a day. Before you make changes to the way you eat, be sure to talk with your doctor or dietitian. Follow-up care is a sesay part of your treatment and safety. Be sure to make and go to all appointments, and call your doctor if you are having problems. It's also a good idea to know your test resultsand keep a list of the medicines you take. How can you care for yourself at home? You can increase how much fiber you get if you eat more of certain foods. These foods include: ? Whole-grain breads and cereals. ? Fruits, such as pears, apples, and peaches. Eat the skins, peels, and seeds, if you can. ? Vegetables, such as broccoli, cabbage, spinach, carrots, asparagus, and squash. ? Starchy vegetables. These include potatoes with skins, kidney beans, and drew beans. Take a fiber supplement every day if your doctor recommends it. Examples are Benefiber, Citrucel, FiberCon, and Metamucil. Ask your doctor how much to take. Drink plenty of fluids, enough so that your urine is light yellow or clear like water. If you have kidney, heart, or liver disease and have to limit fluids, talk with your doctor before you increase the amount of fluids you drink. Get some exercise every day. Exercise helps stool move through the colon. It also helps prevent constipation. Keep a food diary. Try to notice and write down what foods cause gas, pain, or other symptoms. Thenyou can avoid these foods. Where can you learn more? Log into your personal health record on [email or web address] and enter U654 in the Education box to learn more about High-Fiber Diet: Care Instructions. Current as of: November 09, 2018 Content Version: 12.3 5789-4258 LS9. Care instructions adapted under license by your healthcare professional. If you have questions about a medical condition or this instruction, always ask your healthcare professional. [employer] disclaims any warranty or liability for your use of this information. documented in this encounter* Patient Instructions* Stacia Feliz MD - 01/06/2019 3:41 PM EDT Healthy Upper Back: Exercises Introduction Here are some examples of exercises for your upper back. Start each exercise slowly. Ease off the exercise if you start to have pain. Your doctor or physical therapist will tell you when you can start these exercises and which ones will work best for you. How to do the exercises Lower neck and upper back stretch 1. Stretch your arms out in front of your body. Clasp one hand on top of your other hand. 2. Gently reach out so that you feel your shoulder blades stretching away from each other. 3. Gently bend your head forward. 4. Hold for 15 to 30 seconds. 5. Repeat 2 to 4 times. Midback stretch 1. Kneel on the floor, and sit back on your ankles. 2. Lean forward, place your hands on the floor, and stretch your arms out in front of you. Rest your head between your arms. 3. Gently push your chest toward the floor, reaching as far in front of you as possible. 4. Hold for 15 to 30 seconds. 5. Repeat 2 to 4 times. Shoulder rolls 1. Sit comfortably with your feet shoulder-width apart. You can also do this exercise while standing. 2. Roll your shoulders up, then back, and then down in a smooth, circular motion. 3. Repeat 2 to 4 times. Wall push-up 1. Stand against a wall with your feet about 12 to 24 inches back from the wall. If you feel any pain when you do this exercise, stand closer to the wall. 2. Place your hands on the wall slightly wider apart than your shoulders, and lean forward. 3. Gently lean your body toward the wall. Then push back to your starting position. Keep the motionsmooth and controlled. 4. Repeat 8 to 12 times. Resisted shoulder blade squeeze 1. Sit or stand, holding the band in both hands in front of you. Keep your elbows close to your sides, bent at a 90-degree angle. Your palms should face up. 2. Squeeze your shoulder blades together, and move your arms to the outside, stretching the band. Be sure to keep your elbows at your sides while you do this. 3. Relax. 4. Repeat 8 to 12 times. Resisted rows 1. Put the band around a solid object, such as a bedpost, at about waist level. Hold one end of theband in each hand. 2. With your elbows at your sides and bent to 90 degrees, pull the band back to move your shoulder blades toward each other. Return to the starting position. 3. Repeat 8 to 12 times. Follow-up care is a sesay part of your treatment and safety. Be sure to make and go to all appointments, and call your doctor if you are having problems. It's also a good idea to know your test resultsand keep a list of the medicines you take. Where can you learn more? Log into your personal health record on [email or web address] and enter T680 in the Education box to learn more about Healthy Upper Back: Exercises. Current as of: December 09, 2017 Content Version: .[id number] LS9. Care instructions adapted under license by your healthcare professional. If you have questions about a medical condition or this instruction, always ask your healthcare professional. [employer] disclaims any warranty or liability for your use of this information. Upper and Middle Back (Thoracic) Strain: Care Instructions Overview A back strain happens when you overstretch, or pull, a muscle in your back. You may hurt your back in an accident or when you exercise or lift something. Sometimes you may not know how you hurt your back. Most back pain will get better with rest and time. You can take care of yourself at home to help your back heal. Follow-up care is a sesay part of your treatment and safety. Be sure to make and go to all appointments, and call your doctor if you are having problems. It's also a good idea to know your test resultsand keep a list of the medicines you take. How can you care for yourself at home? Try to stay as active as you can, but stop or reduce any activity that causes pain. You can try using heat or ice to see if it helps. ? Try using a heating pad on a low or medium setting for 15 to 20 minutes every 2 to 3 hours. Try awarm shower in place of one session with the heating pad. You can also buy single-use heat wraps that last up to 8 hours. ? You can also try an ice pack for 10 to 15 minutes every 2 to 3 hours. Put a thin cloth between the ice and your skin. Be safe with medicines. Read and follow all instructions on the label. ? If the doctor gave you a prescription medicine for pain, take it as prescribed. ? If you are not taking a prescription pain medicine, ask your doctor if you can take an ynup-onw-vkfxchs medicine. Try to find a comfortable sleeping position. ? Instead of your regular pillow, you can try a special neck pillow or a rolled- up towel under yourneck. ? Try lying on your side with a pillow between your legs. Or lie on your back with a pillow under your knees. Return to your usual level of activity slowly. When should you call for help? Call 911 anytime you think you may need emergency care. For example, call if: You are unable to move an arm or a leg at all. Call your doctor now or seek immediate medical care if: You have new or worse symptoms in your arms, legs, chest, belly, or buttocks. Symptoms may include: ? Numbness or tingling. ? Weakness. ? Pain. You lose bladder or bowel control. Watch closely for changes in your health, and be sure to contact your doctor if: You are not getting better as expected. Where can you learn more? Log into your personal health record on [email or web address] and enter U110 in the Education box to learn more about Upper and Middle Back (Thoracic) Strain: Care Instructions. Current as of: December 09, 2017 Content Version: 12.20056988-3230 LS9. Care instructions adapted under license by your healthcare professional. If you have questions about a medical condition or this instruction, always ask your healthcare professional. LS9 disclaims any warranty or liability for your use of this information. documented in this encounter Assessments Diagnosis Acne, unspecified acne type - Primary Vertigo Dizziness and giddiness Toe pain, left Pain in soft tissues of limb Diagnosis Acute URI - Primary Acute upper respiratory infections of unspecified site Diagnosis Right shoulder pain, unspecified chronicity- Primary Rotator cuff tendonitis, right Mid back pain URI, acute Acute upper respiratory infections of unspecified site Allergic rhinitis due to pollen, unspecified seasonality Diagnosis Acute pain of right knee Patellofemoral dysfunction of right knee Diagnosis Immunization due Diagnosis Routine general medical examination at a health care facility Colon cancer screening Special screening for malignant neoplasms, colon Prostate cancer screening Special screening for malignant neoplasm of prostate Travel advice encounter Numerous moles Need for shingles vaccine Need for prophylactic vaccination and inoculation against varicella Diagnosis Spasm of thoracic back muscle- Primary Mid back pain Reason for Referral Status Reason Specialty Diagnoses / Procedures Referred By Contact Referred To Contact Authorized Physical Therapy / Rehabilitation Diagnoses Right shoulder pain, unspecified chronicity Rotator cuff tendonitis, right Dima Scott, DO [address] [facility] [address] [id number] Status Reason Specialty Diagnoses / Procedures Referred By Contact Referred To Contact Authorized Specialty Services Required/Patien t's Best Interest Dermatology Diagnoses Numerous moles D22.9 (ICD-10-CM) - Numerous moles Dima Scott, DO [address] [facility] [address] [id number] Renetta Mcdonnell PA-C [address] [place] [address] Status Reason Specialty Diagnoses / Procedures Referred By Contact Referred To Contact Authorized Specialty Services Required/Pat robnt's Best Interest Gastroenterology Diagnoses Colon cancer screening Z12.11 (ICD-10-CM) - Colon cancer screening Dima Scott, DO [address] [facility] [address] [place] [address] [facility] [address] [place] [address] Status Reason Specialty Diagnoses / Procedures Referred By Contact Referred To Contact Authorized Gastroenterology Diagnoses Colon cancer screening Dima Scotttaylor DO [address] [facility] [address] [place] [address] History of Present Illness * TylerDima Harjeet, - 01/12/2019 1:40 PM EDT [facility] Patient Name: Tom Jones Date: 01/12/2019 Patient : 1970 Patient Age: 48 y.o. CC: Chief Complaint Patient presents with Middle Back - Pain, Follow-up Right Shoulder - Pain, Follow-up Allergies SUBJECTIVE: The patient presents for follow-up on their .... shoulder pain. They describe the pain as .... The patient reports doing ...... The patient denies any acute injury or re-injury to the shoulder. The patient denies any numbness, tingling, or weakness radiating down the arm. The patient continues withtheir home exercise program. The patient has been going to formal physical therapy regularly. The patient has been icing regularly. The review of systems was negative unless otherwise noted. The patient s past medical history, allergies, medication list, social history, and family medical history were documented, updated, and reviewed in the chart. Current Outpatient Medications: albuterol (VENTOLIN HFA) 90 mcg/actuation inhaler, Inhale 1 (one) puff every 6 (six) hours as needed for wheezing or shortness of breath., Disp: 1 Inhaler, Rfl: 2 amoxicillin (AMOXIL) 250 MG capsule, Take 250 mg by mouth 3 (three) times a day ., Disp: , Rfl: clobetasol (TEMOVATE) 0.05 % gel, Apply topically 2 (two) times a day ., Disp: 30 g, Rfl: 2 dapsone 7.5 % GlwP, Apply 1 application topically daily., Disp: 90 g, Rfl: 1 meloxicam (MOBIC) 15 MG tablet, Take 1 (one) tablet (15 mg total) by mouth daily as needed for pain., Disp: 30 tablet, Rfl: 1 minocycline (MINOCIN,DYNACIN) 100 MG capsule, TAKE 1 CAPSULE (100 MG TOTAL) BY MOUTH DAILY., Disp: , Rfl: tadalafil (CIALIS) 5 MG tablet, Take 1 tablet (5 mg total) by mouth daily as needed for erectile dysfunction., Disp: 30 tablet, Rfl: 0 cyclobenzaprine (FLEXERIL) 10 MG tablet, Take 1 (one) tablet (10 mg total) by mouth 3 (three) timesa day as needed for muscle spasms . (Patient not taking: Reported on 01/12/2019 .), Disp: 30 tablet, Rfl: 0 . Patient Active Problem List Diagnosis Date Noted Acne 05/20/2015 Erectile dysfunction 05/20/2015 OBJECTIVE BP 112/77 Pulse 85 Resp 16 Ht 5' 8 Wt 70.8 kg (156 lb) BMI 23.72 kg/m General: alert, cooperative, well appearing, in no apparent distress. Musculoskeletal: The patient s gait is normal. Shoulder: There is no obvious deformity. There is full range of motion of the shoulder. Strength is5/5 with forward flexion, abduction, supraspinatus, internal and external rotation, biceps, and triceps testing. There is pain with resisted supraspinatus and external rotation. Impingement testing is positive with Hawkin s and Neer s. There is no AC or SC tenderness. There is no evidence of instability with anterior apprehension or sulcus testing, negative relocation test. Speed s test is negative. There are no labral clicks and no evidence of labral pathology with O Dusty s and crank testing.There is a normal distal neurovascular examination with an intact median, radial, and ulnar nerve. Skin: The skin is without jaundice. It is intact without pathologic lesions, erythema, vesicles, discharge, or rash. Palpation of the skin is normal without induration, subcutaneous nodules, or tightening. Extremities: There is no clubbing, cyanosis, or edema. 2+ peripheral pulses. ASSESSMENT / PLAN 1. Right shoulder pain, unspecified chronicity Ambulatory ref to Therapy (PT/OT/ST) 2. Rotator cuff tendonitis, right Ambulatory ref to Therapy (PT/OT/ST) 3. Mid back pain 4. URI, acute 5. Allergic rhinitis due to pollen, unspecified seasonality Orders Placed This Encounter Procedures Ambulatory ref to Therapy (PT/OT/ST) Standing Status: Future Standing Expiration Date: 01/12/2020 Referral Priority: Routine Referral Type: Physical Therapy Requested Specialty: Physical Therapy Number of Visits Requested: 1 Return in about 1 month (around 02/12/2019), or if symptoms worsen or fail to improve, for WellnessPhysical. Dima Scott DO documented in this encounter* Dima Scott DO - 09/21/2019 9:48 AM EDT [facility] [address] [facility] [address] [facility] [id number] Patient Name: Tom Jones Date: 09/21/19 Patient : 1970 Patient Age: 49 y.o. CC: Chief Complaint Patient presents with Right Knee - Pain Has been painful for the past couple of months but the pain is becoming more consistent SUBJECTIVE: The patient presents complaining of a 2-3 month history of right knee pain. The patient describes the pain as achy, sore, throbbing at times. . The patient denies injury, but noted gradual increase in anterior pain with starting to increase exercise with walking and doing squats. The patient deniesany mechanical locking, instability, or swelling in the knee. The patient has tried ice, rest, advil with mild relief. The patient denies any prior history of injury to the knee. The review of systems was negative unless otherwise noted. The patient s past medical history, allergies, medication list, social history, and family medical history were documented, updated, and reviewed in the chart. OBJECTIVE: BP 119/76 Pulse 73 Temp 97.2 F (36.2 C) Ht 5' 8 Wt 73.8 kg (162 lb 11.2 oz) BMI 24.74 kg/m . General: alert, cooperative, well appearing, in no apparent distress. Musculoskeletal: There is no obvious deformity. Gait is normal. There is normal active range of motion of all four extremities. Motor and sensory function is grossly intact. There are no focal deficits. Knee: Inspection of the bilateral knee demonstrates there is no obvious deformity or effusion. The bilateral knee is stable without evidence of dislocation. There is normal flexion and extension of the bilateral knee. Assessment of ligamentous stability demonstrates the ACL/PCL/LCL/MCL are all intact. There is no pain with varus or valgus strain. Palpation of the bilateral knee demonstrates thereis no medial or lateral joint line tenderness. There is no pain with flexion circumduction testing.There is no pain along the tibial tuberosity or patellar tendon. There is pain under the medial facet of the right patella. There is no pain with patellar subluxation, rocking, or grinding. The bilateral knee demonstrates normal muscle tone with 5/5 strength with flexion extension. There is no painwith resisted testing. Skin: The skin is without jaundice. It is intact without pathologic lesions, erythema, vesicles, discharge, or rash. Palpation of the skin is normal without induration, subcutaneous nodules, or tightening. Extremities: There is no clubbing, cyanosis, or edema. 2+ peripheral pulses. ASSESSMENT / PLAN: 1. Acute pain of right knee 2. Patellofemoral dysfunction of right knee -natural history of condition discussed, DDx and tx options reviewed. -advised ice region 20 min as needed for pain, after activity. Alternate with heat 20 min as neededfor pain, tightness, before activity and AM/PM. -daily stretching/exercises-see handout -ibuprofen (advil) 3-4 pills (600-800mg) with food up to 3 times/day OR naproxen (aleve) 1-2 tabs (220-440mg) with food up to 2 times/day as needed for pain. -avoid painful motions. -advised knee sleeve with patellar cut out with activity. -consider formal PT if symptoms worsen/persist in 4-6 weeks. No orders of the defined types were placed in this encounter. Return if symptoms worsen or fail to improve. Dima Scott DO documented in this encounter* Dima Scott DO - 02/28/2019 7:27 AM EST [facility] Patient Name: Tom Jones Date: 02/28/19 Patient : 1970 Patient Age: 48 y.o. CC: Chief Complaint Patient presents with Annual Exam fasting SUBJECTIVE Patient presents for a full history and physical. The patient is not exercising regularly.The patient admits to a well balanced diet, non smoker, 14 alcohol beverages per week, 1-2 caffeine beveragesper day. Denies recent illnesses or injuries. Denies CP, SOB, ASH, abd pain, N/V/D/C, urinary dysfunction. Fasting today for labs. He has not had a colonoscopy, so would like referral to GI, as well as referral to dermatology. 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 He is traveling to [place] at the end of the month, would like advice on bowel habits concerns with travel. Up-to-date with vaccinations, had flu shot in October, tetanus shot 8 years ago. Would like jessica ngles vaccine. Otherwise no concerns. REVIEW OF SYSTEMS: GENERAL: No weight change, change in appetite, thirst, fever or chills. HEENT: No headache or blurred vision. CARDIOPULMONARY: No chest pain, palpitations or shortness of breath. GASTROINTESTINAL: No anorexia, nausea or vomiting. GENITOURINARY: No dysuria or pyuria. ENDOCRINE: No goiter, lethargy or heat/cold intolerance. HEMATOLOGY/ONCOLOGY: No pallor, bruising or bleeding. MUSCULOSKELETAL: No change in strength. No swelling. NEUROLOGIC: No headache or loss of consciousness. PSYCHIATRIC: No change in personality, affect or depression. Social History Socioeconomic History Marital status: Spouse name: Not on file Number of children: Not on file Years of education: Not on file Highest education level: Not on file Occupational History Not on file Social Needs Financial resource strain: Not on file Food insecurity Worry: Not on file Inability: Not on file Transportation needs Medical: Not on file Non-medical: Not on file Tobacco Use Smoking status: Never Smoker Smokeless tobacco: Never Used Substance and Sexual Activity Alcohol use: Yes Alcohol/week: 14.0 standard drinks Types: 14 Glasses of wine per week Binge frequency: Weekly Drug use: Not on file Sexual activity: Yes Lifestyle Physical activity Days per week: Not on file Minutes per session: Not on file Stress: Not on file Relationships Social connections Talks on phone: Not on file Gets together: Not on file Attends scientologist service: Not on file Active member of club or organization: Not on file Attends meetings of clubs or organizations: Not on file Relationship status: Not on file Other Topics Concern Not on file Social History Narrative Not on file Past Medical History: Diagnosis Date Acne 05/20/2015 Asthma Seasonal allergies Past Surgical History: Procedure Laterality Date UNDESCENDED TESTICLE EXPLORATION Family History Problem Relation Age of Onset Arthritis Mother Asthma Mother Coronary artery disease Father Arthritis Father Hyperlipidemia Father Hypertension Father Hypertension Brother Asthma Brother Hyperlipidemia Brother Cancer Maternal Grandfather lung Cancer Paternal Grandmother lung Cancer Paternal Grandfather lung Current Outpatient Medications Medication Sig Dispense Refill clobetasol (TEMOVATE) 0.05 % gel Apply topically 2 (two) times a day . 30 g 2 dapsone 7.5 % GlwP Apply 1 application topically daily. 90 g 1 minocycline (MINOCIN,DYNACIN) 100 MG capsule TAKE 1 CAPSULE (100 MG TOTAL) BY MOUTH DAILY. tadalafil (CIALIS) 5 MG tablet Take 1 tablet (5 mg total) by mouth daily as needed for erectile dysfunction. 30 tablet 0 albuterol (VENTOLIN HFA) 90 mcg/actuation inhaler Inhale 1 (one) puff every 6 (six) hours as neededfor wheezing or shortness of breath. (Patient not taking: Reported on 02/28/2019 .) 1 Inhaler 2 varicella-zoster gE, diluent + powder, (SHINGRIX KIT) 50 mcg/0.5 mL injection Sign this order in conjunction with immunization order to satisfy [place] Board of Pharmacy Positive ID requirements for immunization orders . 1 each 0 No current facility-administered medications for this visit. Allergies: no known allergies. Immunization History Administered Date(s) Administered INFLUENZA IIV3 3YO OR > FLUZONE [id number] 01/10/2016 INFLUENZA QUAD 4YO OR >FLUCELVAX [id number] 01/14/2019 Influenza IIV3 3YO OR > 01/16/2015, 01/19/2017 Influenza, Injectable, Quadrivalent, Preservative Free 01/16/2018 Health Maintenance Topic Date Due PSA Level 1970 TETANUS EVERY 10 YR 1970 Colorectal Cancer Screening: Colonoscopy 1970 Wellness Visit 06/03/2016 Zoster Vaccines (1 of 2) 2018 SEQUENTIAL INFLUENZA VACCINE (1) 11/20/2018 DEPRESSION SCREENING (PHQ9) Discontinued OBJECTIVE Vital Signs: BP 120/73 Pulse 71 Resp 12 Ht 5' 8 Wt 70.3 kg (155 lb) BMI 23.57 kg/m General: Alert, cooperative, well appearing, in no apparent distress. Head: Head is symmetric, normocephalic without evidence of trauma or deformity. Eyes: Pupils are equally round and reactive to light with accommodation. The extra-ocular movementsare intact. The lids are without swelling, lesions, or drainage. The conjunctiva is clear and noninjected. ENT: The external auditory canals are without swelling or drainage. The tympanic membranes are intact, clear, and non-erythematous. The septum is midline. The sinuses are nontender to palpation. The nasal mucosa is pink without drainage. The tongue and mucous membranes are pink and moist without lesions. The dentition is generally in good health. The pharynx is non-erythematous without exudates. Neck: There is normal range of motion. The thyroid is normal size without nodules or masses. There is no lymphadenopathy. CV: The heart sounds are regular in rate and rhythm. There is a normal S1 and S2. There or no murmurs, rubs, or gallops. Distal pulses are intact and equal. Lungs: Inspiratory and expiratory efforts are full and unlabored. Lung sounds are clear and equal to auscultation throughout all lung aceves without wheezing, rales, or rhonchi. GI: The abdomen is soft and nontender. Bowel sounds are present in all 4 quadrants. There is no hepatosplenomegaly or other masses. There is no rebound or guarding. There is no CVA or suprapubic tenderness. Extremities: There is no clubbing, cyanosis, or edema. 2+ peripheral pulses. Neurological: Cranial nerves II-XII, cerebellar function and mental status are intact. There are noobvious focal sensory or motor deficits. DTR s are 2+/4 in the upper and lower extremity bilaterally. Strength is 5/5 in the upper and lower extremity bilaterally. Skin: The skin is without jaundice. It is intact without pathologic lesions, erythema, vesicles, discharge, or rash. Musculoskeletal: The patient s gait is normal.There is no obvious deformity. There is normal activerange of motion of all four extremities. Motor and sensory function is grossly intact. There are nofocal deficits. Psych: Alert and oriented x3. Mood is normal. Affect is normal. Insight and judgement are normal. ASSESSMENT / PLAN 1. Routine general medical examination at a health care facility CBC Comprehensive Metabolic Panel Lipid Panel PSA, Screen 2. Colon cancer screening Ambulatory referral to Gastroenterology 3. Prostate cancer screening PSA, Screen 4. Travel advice encounter 5. Numerous moles Ambulatory referral to Dermatology 6. Need for shingles vaccine Varicella-zoster vaccine (Shingrix) IM vaccine varicella-zoster gE, diluent + powder, (SHINGRIX KIT) 50 mcg/0.5 mL injection We will obtain fasting blood work. Results will be communicated to the patient via MyChart or a letter. We reviewed appropriate preventative health screening guidelines. The patient is up-to-date on vaccines. The patient will be referred to GI for initial screening colonoscopy. Referral to dermatology for skin check. He will need to complete second Shingrix vaccination in 3 months. Discussed high-fiber diet for travel to prevent constipation.. We discussed regular aerobic exercise. We discussedproper nutrition and weight control. Orders Placed This Encounter Procedures Varicella-zoster vaccine (Shingrix) IM vaccine CBC Standing Status: Future Standing Expiration Date: 02/28/2020 Comprehensive Metabolic Panel Standing Status: Future Standing Expiration Date: 02/28/2020 Lipid Panel Standing Status: Future Standing Expiration Date: 02/28/2020 PSA, Screen Standing Status: Future Standing Expiration Date: 02/28/2020 Ambulatory referral to Gastroenterology Standing Status: Future Standing Expiration Date: 02/28/2020 Referral Priority: Routine Referral Type: Screening Colonoscopy Number of Visits Requested: 1 Ambulatory referral to Dermatology Standing Status: Future Standing Expiration Date: 02/28/2020 Referral Priority: Routine Referral Type: Evaluate and Treat Number of Visits Requested: 1 No follow-ups on file. Dima Scott DO documented in this encounter* Stacia Feliz MD - 01/06/2019 3:25 PM EDT [facility] Patient Name: Tom Jones Date: 01/06/19 Patient : 1970 Patient Age: 48 y.o. CC: Chief Complaint Patient presents with Lower Back - Pain HPI: Patient presents with complaints of middle of the back pain. Earlier tin the week, felt the back tightening up and felt sore. Took ibuprofen for a few days but the back was still sore. Made an appointment with Dr. Scott next week. 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 [place] nauseated and dizzy. Pain with deep breaths and pain with pressure. Denies paresthesias, denies leg weakness. Denies loss of bowel or bladder control. Last week, felt a little numb at times in the back. [place] it as part of the muscle. Denies radiation of pain. Other than ibuprofen, no other relieving measures. Took ibuprofen about an hour ago. 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 Last weekend, had a cat that has heart disease and was taking litter box up and down the steps multiple times. Littler box is fairly heavy. ROS: Review of Systems The constitutional, neurological, and musculoskeletal review of systems was negative unless otherwise noted. The patient s past medical history, allergies, medication list, social history, and family medical history were documented, updated, and reviewed in the chart. Objective: BP 120/73 Pulse 71 Resp 14 Ht 5' 8 Wt 72.1 kg (159 lb) BMI 24.18 kg/m Physical Exam Constitutional: General: He is not in acute distress. Appearance: He is well-developed. He is not diaphoretic. HENT: Head: Normocephalic and atraumatic. Skin: General: Skin is warm and dry. Findings: No rash. Neurological: Mental Status: He is alert. Psychiatric: Behavior: Behavior normal. Thought Content: Thought content normal. Judgment: Judgment normal. Back Exam Tenderness The patient is experiencing tenderness in the thoracic (lower thoracic). Range of Motion The patient has normal back ROM. Muscle Strength The patient has normal back strength. Tests Straight leg raise right: negative Straight leg raise left: negative Reflexes Patellar: normal Achilles: normal Ortho Exam No results found. A/P: 1. Spasm of thoracic back muscle 2. Mid back pain Rx Flexeril 10 mg TID prn Rx Mobic 15 mg daily prn Advised on home exercises Advised to use icy hot patch while driving to [place] today. Advised supportive care. F/u with Dr. Scott is no improvement. No follow-ups on file. All pertinent side effects, risks, benefits and precautions of suggested treatments were discussed in detail. Mr. Jones understands and agrees with the above plan. Orders Placed This Encounter meloxicam (MOBIC) 15 MG tablet Sig: Take 1 (one) tablet (15 mg total) by mouth daily as needed for pain . Dispense: 30 tablet Refill: 1 cyclobenzaprine (FLEXERIL) 10 MG tablet Sig: Take 1 (one) tablet (10 mg total) by mouth 3 (three) times a day as needed for muscle spasms . Dispense: 30 tablet Refill: 0 documented in this encounter Advance Directives No Advanced Directives Records FoundDocuments on File Type Date Recorded Patient Survey Compiler Expl anation Advance Directives and Living Will Documents on File Type Date Recorded Patient Survey Compiler Expl anation Advance Directives and Living Will Advance Directive Response Recorded Date/ Time Living Will No July 18, 2021 9:30pm Power of Labor Trainer No July 18 9:30pm Advance Directive Response Recorded Date/ Time Living Will No July 19, 2021 2:25am Power of Labor Trainer No July 19 2:25am Advance Directive Response Recorded Date/ Time Living Will No October 08, 2022 1:22pm Power of Labor Trainer No October 08 1:22pm Advance Directive Response Recorded Date/ Time Living Will No October 08, 2022 2:22pm Power of Labor Trainer No October 08 2:22pm Summary Purpose Family History No Family History Records Found Relationship Condition Age at Onset Recorded Date/T cris Not Specified Cardiac disease Unknown Malignant neoplasm Unknown Unknown Family Member Name Dates Details Father Status:Active Mother Status:Active Unknown Family Member Name Dates Details Father Status:Active Mother Status:Active Unknown Family Member Name Dates Details Father Status:Active Mother Status:Active Unknown Family Member Name Dates Details Father Status:Active Mother Status:Active Unknown Family Member Name Dates Details Father Status:Active Mother Status:Active Unknown Family Member Name Dates Details Father Status:Active Mother Status:Active Unknown Family Member Name Dates Details Father Status:Active Mother Status:Active Unknown Family Member Name Dates Details Father Status:Active Mother Status:Active Unknown Family Member Name Dates Details Father Status:Active Mother Status:Active Unknown Family Member Name Dates Details Father Status:Active Mother Status:Active Unknown Family Member Name Dates Details Father Status:Active Mother Status:Active Unknown Family Member Name Dates Details Father Status:Active Mother Status:Active Relationship Condition Age at Onset Recorded Date/T cris Not Specified Cardiac disease Unknown Malignant neoplasm Unknown grandfather Malignant neoplasm of colon Unknown Unknown Family Member Name Dates Details Father Status:Active Mother Status:Active Unknown Family Member Name Dates Details Father Status:Active Mother Status:Active Unknown Family Member Name Dates Details Father Status:Active Mother Status:Active Unknown Family Member Name Dates Details Father Status:Active Mother Status:Active Unknown Family Member Name Dates Details Father Status:Active Mother Status:Active Chief Complaint and Reason for Visit Chief Complaint SYNCOPE Chief Complaint SYNCOPE Reason for Visit Contact dermatitis Syncope and collapse Chief Complaint SYNCOPE Syncope Syncope Reason for Visit Contact dermatitis Drug rash Syncope and collapse Chief Complaint Amb Documentation DISEASES OF LIVER Chief Complaint SYNCOPE, HYPERLIPIDE YADIRA SYNCOPE, HYPERLIPIDEMIA Additional Source Comments Reason for Visit (unrecogniz ed section and content) Reason Comments Allergies Pain Follow-up Reason Comments Pain Has been painful for the past couple of months but the pain is becoming more consistent Reason Comments Immunizations Shingrix #2 Reason Comments Annual Exam fasting Reason Comments Medication Refill Reason Comments Pain Reason Comments Hip Pain left, maybe exercise related, 2-3 weeks Reason Comments Annual Exam Reason Comments Rash Patient noticed rash on inner thighs and both arms/hands yesterday. Reason Comments Syncope Pt stated that he sp end 2 days in the hospitsl after 3 episodes of Syncope. He was put on prednisone for 5 days 40mg and 1 day of 60 Mg. Reason Onset Date Comments Medication Refill 11/19/2021 Telephone Encounter - Jacquelin Paz Athletic Trainer - 06/12/2020 8:30 AM EDT Miscellaneous Notes (unrecog nized section and content) Last OV 7.2.20. documented in this encounter (unrecognized sect ion and content) No Status Records FoundNo Status Records FoundNo Status Records FoundNo Status Records Found INFORMATION SOURCE (unrecogn ized section and content) DATE CREATED AUTHOR 09/16/2020 [facility] DATE CREATED AUTHOR AUTHOR'S ORGANIZ ATION 07/26/2021 [facility] DATE CREATED AUTHOR AUTHOR'S ORGANIZ ATION 07/14/2022 [facility] DATE CREATED AUTHOR AUTHOR'S ORGANIZ ATION 11/19/2023 [facility] Care Teams (unrecognized sec tion and content) Team Status: Active Member Role Status Dates Dr. Nasra Rock DO Primary Care Provider Active Team Status: Inactive Member Role Status Dates Dr. Nasra Rock DO Primary Care Provider Active Dr. Irma Gardner MD Attending Provider, Referring Pr ovider Active Physical Chemist Relationship Specialty Start Date End Date Dima Scott DO [id number] [facility] [address] [place] [address] PCP - General Family Medicine 08/17/14 Physical Chemist Relationship Specialty Start Date End Date Dima Scott, DO [address] [place] [address] PCP - General Family Medicine 08/17/14 Physical Chemist Relationship Specialty Start Date End Date Dima Scott DO [address] [place] [address] PCP - General Family Medicine 08/17/14 Physical Chemist Relationship Specialty Start Date End Date Dima Scott, DO [address] [place] [address] PCP - General Family Medicine 08/17/14 Physical Chemist Relationship Specialty Start Date End Date Dima Scott, DO [address] [place] [address] PCP - General Family Medicine 08/17/14 Physical Chemist Relationship Specialty Start Date End Date Dima Scott, DO [address] [place] [address] PCP - General Family Medicine 08/17/14 Team Status: Active Member Role Status Dates Antonette Palafox Attending Provider Active Team Status: Inactive Member Role Status Dates Dr. Nasra Rock , DO Primary Care Provide r, Attending Provider, Referring Provider Active Team Status: Active Member Role Status Dates Dr. Nasra Rock , DO Primary Care Provider Active Dr. Tirso Trinidad MD Attending Provider Active Team Status: Active Member Role Status Dates Dr. Nasra Rock , DO Primary Care Provider, Other Provi kishore Active Dr. Thad Zurita MD Attending Provider Active Team Status: Inactive Member Role Status Dates Dr. Nasra Rock , DO Primary Care Provider, Attending P kolton Active Goals (unrecognized section and content) Goals may be documented in a n alternate sectionGoals may be documented in an alternate sectionGoals may be documented in an alternate sectionGoals may be documented in an alternate sectionGoals may be documented in an alternate sectionGoals may be documented in an alternate section FOR RECORDS PERTAINING TO PATIENTS WHO ARE OR HAVE BEEN ENROLLED IN A CHEMICAL DEPENDENCY/SUBSTANCEABUSE PROGRAM, SOME INFORMATION MAY BE OMITTED. This clinical summary was aggregated from multiple sources. Caution should be exercised in using it in the provision of clinical care. This summary normalizes information from multiple sources, and as a consequence, information in this document may materially change the coding, format and clinical context of patient data. In addition, data may be omitted in some cases. CLINICAL DECISIONS SHOULD BE BASED ON THE PRIMARY CLINICAL RECORDS. [facility]. provides no warranty or guarantee of the accuracy or completeness of information in this document.
== END | disposition home or self-care (01) ==
LOC: SL 20:02
PROVIDERS: PCP Internal Medicine; Referring Provider Internal Medicine; Visit Provider Internal Medicine
DX: G47.30 Sleep apnea, unspecified (principal)
CPT/HCPCS: 95810